=== PATIENT | female | born 1995 | race Caucasian/White ===

== ENCOUNTER → 2021-06-09 09:24 | Outpatient (BNVA) | payer OTHER, MEDICAID, SELFPAY | PROVIDERS: PCP Pediatrics; Referring Provider Pediatrics; Visit Provider Internal Medicine | DX: I95.1 Orthostatic hypotension (principal); R00.0 Tachycardia, unspecified | CPT/HCPCS: 93005 ==

== ENCOUNTER 2023-08-09 09:06 | Outpatient (REF) | payer OTHER, SELFPAY ==
[2023-08-09 10:57] LABS: Erythrocyte Sedimentation Rate 6 MM/HR (0-20)
[2023-08-09 11:19] LABS: Syphilis Screen Nonreactive (Nonreactive)
[2023-08-09 11:20] LABS: HIV AB/AG Nonreactive (Nonreactive); HIV Num 1 0.06 S/CO (0.00-0.99)
[2023-08-09 11:35] LABS: Rheumatoid Factor < 13.0 IU/mL (<15.0)
[2023-08-09 11:38] LABS: Folate 10.8 ng/mL (> or = 4.0); Vitamin B12 525 pg/mL (200-900)
[2023-08-10 13:08] LABS: Complement C3 123 mg/dL (83-193)
[2023-08-11 05:33] LABS: Lyme Abs Screen <0.90 index
[2023-08-11 14:33] LABS: IgA 341 mg/dL (47-310); IgG 1211 mg/dL (600-1640); IgM 151 mg/dL (50-300)
[2023-08-11 20:44] LABS: Anti DNA DS Antibody 3 IU/mL
[2023-08-19 12:59] LABS: Anti Nuclear Antibody Pattern Nuclear, Homogeneous; Anti Nuclear Antibody Screen POSITIVE (NEGATIVE)
== END 2023-08-09 09:07 | disposition home or self-care (01) ==
LOC: HO.LAB 09:06
PROVIDERS: PCP Internal Medicine; Visit Provider Psychiatry & Neurology Neurology
DX: Z11.4 Encounter for screening for human immunodeficiency virus [HIV] (principal); G62.9 Polyneuropathy, unspecified
CPT/HCPCS: 36415; 82607; 82746; 82784; 85652; 86038; 86039; 86160; 86225; 86334; 86431; 86617; 86618; 86780; 87389

== ENCOUNTER 2023-10-28 10:20 | Outpatient (REF) | payer OTHER, SELFPAY ==
--- NOTE | ~2023-10-28 | MR_ITS ---
EXAMINATION: MR BRAIN WITH AND WITHOUT CONTRAST CLINICAL INFORMATION: Right-sided jaw/facial pain, trigeminal neuralgia COMPARISON: None. TECHNIQUE: MRI of the brain was obtained using routine sequences before and following administration of intravenous contrast. A total of 6 mL of Gadavist was administered intravenously. FINDINGS: No abnormal enhancement or mass along the intracranial and extracranial course of the trigeminal nerves. Normal fluid signal intensity of Meckel's caves. No evidence of neurovascular compression along the cisternal segments of the trigeminal nerves. Fat within the periorbital fissures, pterygopalatine fossa, trigeminal fat pad, and mandibular alveolar foramina is preserved. No acute infarct. No extra-axial fluid collection. The ventricles and sulci are normal in size and configuration without significant volume loss or hydrocephalus. No parenchymal signal abnormality. No abnormal intraparenchymal or leptomeningeal enhancement. No significant mass effect or herniation pattern. Normal enhancement of the dural venous sinuses. Normal appearance of the intracranial arterial flow voids. Normal appearance of the midline structures. The orbits are grossly unremarkable. 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 Mild paranasal sinus mucosal thickening. Rightward curvature of the mid nasal septum and leftward curvature of the inferior nasal septal deviation with leftward bony spur impinging on the left inferior nasal turbinate. Normal marrow signal. MR/MR head/brain wo/w con IMPRESSION: No evidence of neurovascular compression of the trigeminal nerve. Normal appearance of the extracranial trigeminal nerve branches. 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 Rightward curvature of the mid nasal septum and leftward curvature of the inferior nasal septal deviation with leftward bony spur impinging on the left inferior nasal turbinate. Rightward curvature of the mid nasal septum and leftward curvature of the inferior nasal septal deviation with leftward bony spur impinging on the left inferior nasal turbinate.
[2023-10-28] MEDS: gadobutroL 7.5 ML VIAL IVPUSH (11:30)
== END 2023-10-28 10:21 | disposition home or self-care (01) ==
LOC: HO.MRI 10:20
PROVIDERS: PCP Internal Medicine; Visit Provider Registered Nurse
DX: G50.0 Trigeminal neuralgia (principal)
CPT/HCPCS: 70553; A9585

== ENCOUNTER → 2024-02-27 13:48 | Outpatient (BNV) | payer OTHER, SELFPAY | PROVIDERS: PCP Internal Medicine; Visit Provider Internal Medicine | DX: E61.1 Iron deficiency (principal) | CPT/HCPCS: 99204; 99213 ==

== ENCOUNTER 2024-08-06 07:25 | Emergency (ER) | payer OTHER, SELFPAY ==
--- NOTE | 2024-08-06 | ECG_ITS ---
Test Reason : syncopy Blood Pressure : / mmHG Vent. Rate : 064 BPM Atrial Rate : 064 BPM P-R Int : 132 ms QRS Dur : 078 ms QT Int : 380 ms P-R-T Axes : 067 074 062 degrees QTc Int : 392 ms Normal sinus rhythm Normal ECG No previous ECGs available Referred By: Generic ED Physician Electronically Signed By:Darnell Orellana
[2024-08-06 07:30] VITALS: BP 104/45; PULSE 81; RESP 16; TEMP 36.6; O2SAT 99; BMI 21.8
[2024-08-06 07:49] LABS: MANUAL DIFF FLAG NO
[2024-08-06 07:50] LABS: Basophils Percent Auto 0.3 % (0-2); Eosinophils Percent Auto 0.2 % (0-4); Hematocrit 37.2 % (37.0-47.0); Hemoglobin 11.8 g/dl (12.0-16.0); Imm Gran Abs Auto 0.04 X10*3/uL (0.00-0.03); Imm Gran Pct Auto 0.3 % (0.0-0.4); Lymphocytes Absolute Auto 1.1 X10*3/uL (1.2-4.9); Lymphocytes Percent Auto 8.8 % (20-40); Mean Corpuscular HGB Conc 31.7 g/dl (31.0-35.0); Mean Corpuscular Hemoglobin 23.6 pg (27.0-33.0); Mean Corpuscular Volume 74.3 fL (80.0-98.0); Mean Platelet Volume 11.4 fL (9.4-12.3); Monocytes Absolute Auto 0.7 X10*3/uL (0.1-1.2); Monocytes Percent Auto 5.7 % (2-11); Neutrophils Absolute Auto 10.9 x10*3/uL (2.0-8.3); Neutrophils Percent Auto 84.7 % (45-73); Platelet Count 202 X10*3/uL (160-400); Red Blood Count 5.01 X10*6/uL (4.20-5.50); Red Cell Distribution Width 15.9 % (11.0-16.0); White Blood Count 12.9 X10*3/uL (4.8-10.8)
[2024-08-06 08:50] LABS: Influenza A PCR NEGATIVE (Negative); Influenza B PCR NEGATIVE (Negative); Resp Syncy Virus RNA Qual PCR NEGATIVE (Negative); SARS COV2 PCR INHOUSE NEGATIVE (Negative)
[2024-08-06 08:50] LABS: Alanine Aminotransferase 16 U/L (0-31); Albumin Level 4.2 g/dL (3.5-5.0); Alkaline Phosphatase 53 U/L (39-117); Anion Gap 12 (12-20); Aspartate Amino Transferase 21 U/L (5-31); Bilirubin Total 0.4 mg/dL (0.0-1.0); Blood Urea Nitrogen 11 mg/dL (9-16); Calcium 9.6 mg/dL (8.4-10.2); Carbon Dioxide 25 mmol/L (22-29); Chloride 108 mmol/L (96-108); Creatinine Clr Calc Pharmacy 100.9; Estimated Glomerular Filt Rate > 60; Glucose Random 93 mg/dL (60-115); Potassium 4.3 mmol/L (3.3-5.1); Sodium 141 mmol/L (135-145); Total Protein 7.3 g/dL (6.5-8.0)
[2024-08-06 10:31] VITALS: BP 90/26; PULSE 59; RESP 11; TEMP 36.9; O2SAT 100
--- NOTE | 2024-08-06 10:54 | ED.GENADULT ---
HPI - General Adult General Chief complaint: Dizziness Stated complaint: dizziness Time Seen by Provider: 08/06/24 10:49 Source: patient Mode of arrival: ambulatory Limitations: no limitations History of Present Illness HPI narrative: This is a 28 years old patient presented to the emergency department with a chief complaint of syncope x2 one was last night one this morning. Patient has history of POTS, she states her kids have been sick she has been feeling weak, the syncope was at home from the standing position she felt coming with dizziness feeling. Onset (ago): hour(s) (10) Radiation: non-radiation Pain Consistency: now resolved Relieving factors: none Exacerbating factors: none Associated symptoms: denies other symptoms Related Data Home Medications ?Medication ?Instructions ?Recorded ?Confirmed gabapentin 100 mg tablet 100 mg PO DAILY 02/27/24 02/27/24 pantoprazole 40 mg tablet,delayed 40 mg PO DAILY 02/27/24 02/27/24 release Allergies Allergy/AdvReac Type Severity Reaction Status Date / Time erythromycin base Allergy Unknown unk Verified 08/06/24 07:34 fludrocortisone Allergy Unknown unk Verified 08/06/24 07:34 iron Allergy Unknown unk Verified 08/06/24 07:34 midodrine Allergy Unknown throat Verified 08/06/24 07:34 itchy tramadol Allergy Unknown swelling Verified 08/06/24 07:34 throatand hives adhesive tape Allergy Rash Verified 08/06/24 07:34 metronidazole AdvReac Unknown hives/rash/ Verified 08/06/24 07:34 SOB Review of Systems Constitutional: Constitutional: Reports no additional constitutional complaints Cardiovascular: Cardiovascular: Reports no additional cardiovascular complaints Endocrine: Endocrine: Reports no additional endocrine complaints PENDING SALE TO [facility] Past Medical History Medical History Migraine Menorrhagia Major depression in full remission Low back pain Irritable bowel syndrome Iron deficiency anemia History of suicide attempt GERD (gastroesophageal reflux disease) Dizziness Asthma Generalized anxiety disorder Abdominal pain Anemia Surgical History History of hernia repair History of ankle surgery History of back surgery History of cholecystectomy History of appendectomy History of section (~04/22/20) Family History Family History Father Lung cancer Mother Diabetes Polythelia Paternal Aunt Lung cancer Breast cancer Social History Social History Household Members: Spouse and Family Patient Tobacco Use Status: Never used Tobacco Smoked in Last 30 Days: No Use of substances other than those prescribed or required for medical reasons: Yes Substance Use Type: Marijuana Advance Directives: No Advance Directives Information Provided: Yes Patient : No service: No Current occupational status: employed Physical Exam ED Vital Signs: Vital Signs - 24 hr 08/06/24 07:30 08/06/24 10:31 08/06/24 12:34 Temperature 97.8 F 98.4 F Pulse Rate 81 59 60 Respiratory Rate 16 11 L 14 Blood Pressure 104/45 L 90/26 L 104/52 L Pulse Oximetry 99 100 100 Oxygen Delivery Method Room Air Room Air Room Air 08/06/24 15:10 Temperature Pulse Rate 65 Respiratory Rate 16 Blood Pressure 115/37 L Pulse Oximetry 100 Oxygen Delivery Method BMI result Body Mass Index 21.8 She is a awake alert in not acute distress, she is not toxic-appearing Const General: cooperative Nutritional Appearance: average body habitus Orientation/consciousness: patient oriented x3 HENMT Head: Yes normal to inspection General nose exam: Normal external nose present Face and sinus: Yes normal facial exam Mouth: Normal oral and palatal mucosa present Neck Neck: Yes normal visual inspection Chest Chest palpation & inspection: normal inspection of the chest Resp Effort & Inspection: normal respiratory effort Auscultation: clear to auscultation bilaterally Cardio Jugular venous distension: no JVD Rate: regular rate Rhythm: regular rhythm GI Inspection: Yes normal to inspection Palpation (GI): Soft to palpation, not firm and nontender General: Yes no CVA tenderness Back/Spine/Pelvis Back: no CVA tenderness Skin General skin exam: no rashes or lesions noted Lesions: no lesions Rashes: no rashes Neuro General: patient oriented x3 Cranial nerves: Yes CN's II-XII intact bilaterally Cognition (Neuro): normal cognition Extrem General: Yes normal to inspection, Yes full ROM and Yes capillary refill normal Right lower extremity: normal to inspection Course Reevaluation(s) Reevaluation #1: reexamined much better labs ok likely vasovagal episode ,she felt dizzness before the syncope,low risk pt labs and EKG OK Time: 12:45 Reevaluation #2: Remain asymtomatic will d/c home Medications Administered Discontinued Medications Generic Name Dose Route Start Last Admin Trade Name [place] PRN Reason Stop Dose Admin Sodium Chloride 1,000 mls @ 999 mls/hr 08/06/24 11:00 08/06/24 12:35 Ns IVCONT 08/06/24 12:00 Infused .Q1H1M SWETA Infusion Sodium Chloride 1,000 mls @ 999 mls/hr 08/06/24 12:45 08/06/24 14:51 Ns IV 08/06/24 13:45 Infused .Q1H1M SWETA Infusion Sodium Chloride 1,000 mls @ 999 mls/hr 08/06/24 12:45 08/06/24 12:38 Ns IVCONT 08/06/24 13:45 Not Given .Q1H1M SWETA Medical Decision Making Medical Decision Making [facility] Narrative: she presented with syncope hx Pots Differential Diagnosis Differential Diagnoses: The differential diagnosis associated with the presentation includes dehydration/vasovagal/cardiac arrythmias Admission/Observation Consideration of admission/observation: Escalation of care including admission/observation considered Lab Data [facility] Lab Attestation statement: I reviewed the patient's lab results. 08/06/24 07:45 08/06/24 08:22 Labs: Lab Results 08/06/24 08/06/24 08/06/24 Range/Units 07:45 08:22 11:10 WBC 12.9 H (4.8-10.8) X10*3/uL RBC 5.01 (4.20-5.50) X10*6/uL Hgb 11.8 L (12.0-16.0) g/dl Hct 37.2 (37.0-47.0) % MCV 74.3 L (80.0-98.0) fL MCH 23.6 L (27.0-33.0) pg MCHC 31.7 (31.0-35.0) g/dl RDW 15.9 (11.0-16.0) % Plt Count 202 (160-400) X10*3/uL MPV 11.4 (9.4-12.3) fL Immature Gran % (Auto) 0.3 (0.0-0.4) % Neut % (Auto) 84.7 H (45-73) % Lymph % (Auto) 8.8 L (20-40) % [place] % (Auto) 5.7 (2-11) % Eos % (Auto) 0.2 (0-4) % Baso % (Auto) 0.3 (0-2) % Lymph # (Auto) 1.1 L (1.2-4.9) X10*3/uL [place] # (Auto) 0.7 (0.1-1.2) X10*3/uL Eos # (Auto) 0.0 (0.0-0.4) X10*3/uL Baso # (Auto) 0.0 (0.0-0.2) X10*3/uL Abs Immat Gran (auto) 0.04 H (0.00-0.03) X10*3/uL Absolute Neuts (auto) 10.9 H (2.0-8.3) x10*3/uL Absolute Nucleated RBC 0.000 (0.0-0.012) X10*3/uL Nucleated RBC % (auto) 0.0 (0.0-0.2) /100WBC Sodium 141 (135-145) mmol/L Potassium 4.3 (3.3-5.1) mmol/L Chloride 108 (96-108) mmol/L Carbon Dioxide 25 (22-29) mmol/L Anion Gap 12 (12-20) BUN 11 (9-16) mg/dL Creatinine 0.77 (0.5-1.4) mg/dL Estim Creat Clear Calc 100.9 Estimated GFR > 60 Random Glucose 93 (60-115) mg/dL Calcium 9.6 (8.4-10.2) mg/dL Total Bilirubin 0.4 (0.0-1.0) mg/dL AST 21 (5-31) U/L ALT 16 (0-31) U/L Alkaline Phosphatase 53 (39-117) U/L Troponin I High Sens < 2.7 (<3.5-17.0) ng/L Total Protein 7.3 (6.5-8.0) g/dL Albumin 4.2 (3.5-5.0) g/dL Beta HCG, Quant < 2 mIU/mL Influenza Type A (PCR) NEGATIVE (Negative) Influenza Type B (PCR) NEGATIVE (Negative) RSV RNA Qual (PCR) NEGATIVE (Negative) SARS-CoV-2 RNA (RT-PCR) NEGATIVE (Negative) Independent Interpretation I performed an independent interpretation of an: EKG (Sinus rhythm rate [address]-T changes, EKG was reviewed interpreted by me) Discharge Plan Discharge Clinical Impression: Vasovagal syncope Patient Disposition: Home, Self-Care Instructions: Syncope (DC) Additional Instructions: Drink lots of fluid rest return to emergency room if you feeling worse any concern Prescriptions: No Action pantoprazole 40 mg tablet,delayed release (DR/EC) 40 mg PO DAILY gabapentin 100 mg Tablet 100 mg PO DAILY Referrals: Savanna Trimble MD [Primary Care Provider] - 2 days Stand Alone Forms: Work/School Release Print Language: Citizen [place]
[2024-08-06] MEDS: 0.9 % Sodium Chloride 1,000 ML 999 ML IVCONT (11:24)
[2024-08-06 11:36] LABS: HCG Quantitative < 2 mIU/mL; Troponin-I High Sensitivity < 2.7 ng/L (<3.5-17.0)
[2024-08-06 12:34] VITALS: BP 104/52; PULSE 60; RESP 14; O2SAT 100
[2024-08-06] MEDS: 0.9 % Sodium Chloride 1,000 ML 999 ML IV (12:38)
[2024-08-06 15:10] VITALS: BP 115/37; PULSE 65; RESP 16; O2SAT 100
[2024-08-06 15:54] VITALS: BP 115/37; PULSE 65; RESP 16; TEMP 36.7; O2SAT 100
== END 2024-08-06 15:54 | disposition home or self-care (01) ==
PROVIDERS: Emergency Provider Emergency Medicine; PCP Internal Medicine
DX: R55 Syncope and collapse (principal); R42 Dizziness and giddiness; R11.0 Nausea; Z03.818 Encounter for observation for suspected exposure to other biological agents ruled out; Z79.899 Other long term (current) drug therapy
CPT/HCPCS: 0241U; 36415; 80053; 84484; 84702; 85025; 93005; 96360; 96361; 99284; 99285

== ENCOUNTER → 2024-08-06 07:40 | Outpatient (BNV) | payer OTHER, SELFPAY | PROVIDERS: Emergency Provider Emergency Medicine; PCP Internal Medicine; Visit Provider Internal Medicine Cardiovascular Disease | DX: R55 Syncope and collapse (principal) | CPT/HCPCS: 93010 ==

== ENCOUNTER 2024-10-03 09:13 | Outpatient (REF) | payer OTHER, SELFPAY ==
[2024-10-03 10:31] LABS: Anion Gap 9 (12-20); Blood Urea Nitrogen 9 mg/dL (9-16); Calcium 9.1 mg/dL (8.4-10.2); Carbon Dioxide 26 mmol/L (22-29); Chloride 109 mmol/L (96-108); Estimated Glomerular Filt Rate > 60; Glucose Random 91 mg/dL (60-115); Potassium 4.2 mmol/L (3.3-5.1); Sodium 140 mmol/L (135-145)
== END 2024-10-03 09:14 | disposition home or self-care (01) ==
LOC: HO.LAB 09:13
PROVIDERS: PCP Internal Medicine; Visit Provider Psychiatry & Neurology Neurology
DX: G90.9 Disorder of the autonomic nervous system, unspecified (principal)
CPT/HCPCS: 36415; 80048

== ENCOUNTER 2024-11-18 08:32 | Emergency (ER) | payer OTHER, SELFPAY ==
--- NOTE | ~2024-11-18 | CT_ITS ---
CLINICAL HISTORY: syncope, head strike, pain CT head without contrast Comparison: MR/SR - MR HEAD/BRAIN WO/W CON - 10/28/23 10:38 EST Findings: No acute intracranial hemorrhage or midline shift. The arrington-white matter differentiation is maintained. No significant atrophy-like change or white matter disease. 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 The remaining paranasal sinuses and mastoid air cells are clear. Punctate calcification or foreign body within the right frontal paramedian scalp. The calvarium is intact. IMPRESSION: No acute intracranial findings. This document has been electronically signed by: Bin Gerber DO on 11/18/2024 11:46:42
--- NOTE | ~2024-11-18 | CT_ITS ---
CLINICAL HISTORY: syncope, head strike, pain CT cervical spine without contrast Comparison: None Findings: No evidence of cervical spine fracture. Vertebral body heights are maintained. The usual cervical lordosis is maintained without spondylolisthesis. No significant degenerative change. The prevertebral soft tissues are not abnormally thickened. The lung apices are clear. IMPRESSION: No acute cervical spine findings. This document has been electronically signed by: Bin Gerber DO on 11/18/2024 11:51:18
--- NOTE | ~2024-11-18 | XR_ITS ---
CLINICAL HISTORY: dizziness Chest radiograph, 1 view Comparison: None Findings: The cardiomediastinal silhouette is not enlarged. Pulmonary vascularity is unremarkable. No focal consolidation or effusion. No pneumothorax. IMPRESSION: No acute cardiopulmonary findings. This document has been electronically signed by: Bin Gerber DO on 11/18/2024 09:04:35
[2024-11-18 08:37] VITALS: BP 93/58; PULSE 55; O2SAT 100
--- NOTE | 2024-11-18 08:38 | ED_ITS ---
HPI - General Adult General Chief complaint: Syncope Stated complaint: SYNCOPAL EPISODE PER EMS Time Seen by Provider: 11/18/24 08:38 Source: patient and EMS Mode of arrival: EMS Limitations: no limitations History of Present Illness ED Provider: Laury Peterson PA-C HPI narrative: Patient is a 28 year old assigned female at with a history of EDS and POTS presenting to the emergency department today after a syncopal episode. Patient states that she had a syncopal episode while at home in the kitchen and has been having issues keeping her blood pressure high. Patient states that she is on sodium tablets and follows with a neurologist as well as a [employer] for this. Patient denies any dizziness, lightheadedness, abdominal pain, nausea, vomiting, fever, chills, blurry vision, double vision, loss of vision, chest pain, difficulty breathing, shortness of breath, back pain, night sweats, pain with urination, increased urinary frequency, increased urinary urgency, blood in her urine or stool, bowel incontinence, bladder incontinence, or any other complaints at this time. Relieving factors: none Exacerbating factors: none Associated symptoms: syncope Treatments prior to arrival: none Related Data Home Medications ?Medication ?Instructions ?Recorded ?Confirmed gabapentin 100 mg tablet 100 mg PO DAILY 02/27/24 02/27/24 pantoprazole 40 mg tablet,delayed 40 mg PO DAILY 02/27/24 02/27/24 release Allergies Allergy/AdvReac Type Severity Reaction Status Date / Time erythromycin base Allergy Unknown unk Verified 11/18/24 08:56 fludrocortisone Allergy Unknown unk Verified 11/18/24 08:56 iron Allergy Unknown unk Verified 11/18/24 08:56 midodrine Allergy Unknown throat Verified 11/18/24 08:56 itchy tramadol Allergy Unknown swelling Verified 11/18/24 08:56 throatand hives adhesive tape Allergy Rash Verified 11/18/24 08:56 metronidazole AdvReac Unknown hives/rash/ Verified 11/18/24 08:56 SOB Review of Systems 2 Constitutional: Constitutional: Reports no additional constitutional complaints, Denies chills, Denies fever(s) and Denies night sweats Eyes: Eyes: Reports no additional eye complaints, Denies blurry vision, Denies change in vision, Denies diplopia, Denies eye discharge, Denies loss of vision and Denies eye pain ENT: Denies dizziness Cardiovascular: Cardiovascular: Reports no additional cardiovascular complaints, Denies chest pain, Reports syncope, Denies lightheadedness, Denies Loss of Consciousness and Denies dyspnea Respiratory: Respiratory: Reports no additional respiratory complaints and Denies dyspnea Gastrointestinal: Gastrointestinal: Reports no additional gastrointestinal complaints, Denies abdominal pain, Denies melena, Denies hematochezia, Denies change in bowel habits and Denies change in stool character Genitourinary: Genitourinary: Denies hematuria, Denies urinary frequency, Denies dysuria, Denies urinary incontinence, Denies urinary hesitancy and Denies urinary urgency Musculoskeletal: Musculoskeletal: Reports no additional musculoskeletal complaints, Denies numbness and Denies tingling Neurologic: Denies dizziness, Reports syncope, Denies loss of vision, Denies numbness and Denies tingling Psychiatric: Psychiatric: Reports no additional psychiatric complaints Endocrine: Endocrine: Reports no additional endocrine complaints Hematologic/Lymphatic: Hematologic/Lymphatic: Reports no additional hematologic/lymphatic complaints Allergic/Immunologic: Allergic/Immunologic: Reports no additional allergic/immunologic complaints [facility], [facility] Past Medical History Attestation statement: The following information was validated with the patient. Source: old records reviewed and nursing notes reviewed Medical History Migraine Menorrhagia Major depression in full remission Low back pain Irritable bowel syndrome Iron deficiency anemia History of suicide attempt GERD (gastroesophageal reflux disease) Dizziness Asthma Generalized anxiety disorder Abdominal pain Anemia Surgical History History of hernia repair History of ankle surgery History of back surgery History of cholecystectomy History of appendectomy History of section (~04/22/20) Family History Family History Father Lung cancer Mother Diabetes Polythelia Paternal Aunt Lung cancer Breast cancer Social History Social History Household Members: Spouse and Family Patient Tobacco Use Status: Never used Tobacco Substance Use Type: Marijuana Advance Directives: No Advance Directives Information Provided: No service: No Current occupational status: employed Physical Exam ED Vital Signs: Vital Signs - 24 hr 11/18/24 14:51 Temperature 98.2 F Pulse Rate 65 Respiratory Rate 16 Blood Pressure 97/55 L Pulse Oximetry 100 Oxygen Delivery Method Room Air BMI result Body Mass Index 25.3 Const General: cooperative, no acute distress, alert and awake Nutritional Appearance: well nourished Orientation/consciousness: patient oriented x3 Limitations: no limitations HENMT Head: Yes normal to inspection and Yes atraumatic Ears: hearing grossly normal bilaterally and external ears normal General nose exam: Normal external nose present, no nasal discharge noted and no epistaxis Face and sinus: Yes normal facial exam, No abrasion and No laceration Mouth: Normal oral and palatal mucosa present, no drooling and no muffled voice Eyes General: appearance normal, both eyes and all related structures Periorbital: periorbital findings normal Eyelids: Yes eyelids normal Conjunctivae: conjunctivae normal Pupils: Equal, round and reactive pupils present EOM: EOMs intact bilaterally Neck Neck: Yes normal visual inspection, Yes full ROM and Yes no lymphadenopathy Chest Chest palpation & inspection: normal inspection of the chest Resp Effort & Inspection: normal respiratory effort and able to speak in complete sentences GI Inspection: Yes normal to inspection Neuro General: patient oriented x3, moves all extremities and CN's II-XI intact bilaterally Cranial nerves: Yes Equal, round and reactive pupils present Cognition (Neuro): normal cognition Extrem General: Yes normal to inspection, Yes full ROM and Yes capillary refill normal Psych Appearance: grossly normal Mental Status: mental status grossly normal Affect: normal affect Attitude: cooperative Thought process: Normal thought process present Thought content: Normal thought content present Insight: Good insight present (Psych) Medications Administered Discontinued Medications Generic Name Dose Route Start Last Admin Trade Name Freq PRN Reason Stop Dose Admin Al Hydroxide/Mg Hydroxide 15 ml 11/18/24 11:54 11/18/24 12:25 Magnesium Hydrox/Alum Hydrox 30 Ml Oral.Susp PO 11/18/24 11:55 15 ml ONCE ONE Administration Sodium Chloride 1,000 mls @ 999 mls/hr 11/18/24 08:45 11/18/24 11:51 Ns IV 11/18/24 09:45 Infused .Q1H1M SWETA Infusion Sodium Chloride 1,000 mls @ 999 mls/hr 11/18/24 12:00 11/18/24 12:27 Ns IV 11/18/24 13:00 999 mls/hr .Q1H1M SWETA Administration Ondansetron HCl 4 mg 11/18/24 11:35 11/18/24 11:40 Ondansetron Hcl 4 Mg/2 Ml Vial IVPUSH 11/18/24 11:36 4 mg ONCE ONE Administration Sodium Chloride 1 gm 11/18/24 11:18 11/18/24 12:51 Sodium Chloride Tab 1 Gm Tablet PO 11/18/24 11:19 1 gm ONCE ONE Administration Medical Decision Making Medical Decision Making [facility] Narrative: Patient is a 28 year old assigned female at with a history of EDS and POTS presenting to the emergency department today after a syncopal episode. Patient's physical exam was unremarkable. Patient's blood work was unremarkable. Patient's EKG was unremarkable. Patient's CT head and c-spine showed no acute process. Patient's clinical presentation is most consistent with acute on chronic orthostatic hypotension. Patient able to tolerate PO while in the department. Patient able to ambulate without dizziness / lightheadedness / near syncope. I explained my physical exam findings as well as all test results to the patient]. I answered all questions asked by the patient. I stressed the importance of the patient taking her medication as directed (either prescribed or as the over the counter packaging recommends). I stressed the importance of the patient following up with her primary care provider, neurologist, and [employer]. I stressed the importance of the patient returning to the emergency department immediately if [his/her/their] symptoms were to worsen or if she were to develop any dizziness, shortness of breath, difficulty breathing, chest pain, blurry vision, loss of vision, nausea, vomiting, abdominal pain, fever, chills, back pain, or any other complaints. Patient verbalized agreement and understanding with this treatment plan and discharge. Differential Diagnosis Differential Diagnoses: The differential diagnosis associated with the presentation includes Syncope Near syncope Orthostatic hypotension Chronic hypotension Admission/Observation Consideration of admission/observation: Escalation of care including admission/observation considered Patient would have been admitted to the hospital had her work up had any findings where hospital admission was appropriate and her clinical presentation warranted hospital admission. Lab Data [facility] Lab Attestation statement: I reviewed the patient's lab results. My interpretation of these results are in the [facility] Rationale portion of this note. 11/18/24 09:13 11/18/24 09:13 Labs: Lab Results 11/18/24 Range/Units 09:13 WBC 9.8 (4.8-10.8) X10*3/uL RBC 4.91 (4.20-5.50) X10*6/uL Hgb 11.3 L (12.0-16.0) g/dl Hct 36.1 L (37.0-47.0) % MCV 73.5 L (80.0-98.0) fL MCH 23.0 L (27.0-33.0) pg MCHC 31.3 (31.0-35.0) g/dl RDW 15.7 (11.0-16.0) % Plt Count 210 (160-400) X10*3/uL MPV 11.0 (9.4-12.3) fL Immature Gran % (Auto) 0.3 (0.0-0.4) % Neut % (Auto) 79.7 H (45-73) % Lymph % (Auto) 12.9 L (20-40) % Cecil % (Auto) 6.5 (2-11) % Eos % (Auto) 0.2 (0-4) % Baso % (Auto) 0.4 (0-2) % Lymph # (Auto) 1.3 (1.2-4.9) X10*3/uL Cecil # (Auto) 0.6 (0.1-1.2) X10*3/uL Eos # (Auto) 0.0 (0.0-0.4) X10*3/uL Baso # (Auto) 0.0 (0.0-0.2) X10*3/uL Abs Immat Gran (auto) 0.03 (0.00-0.03) X10*3/uL Absolute Neuts (auto) 7.8 (2.0-8.3) x10*3/uL Absolute Nucleated RBC 0.000 (0.0-0.012) X10*3/uL Nucleated RBC % (auto) 0.0 (0.0-0.2) /100WBC Sodium 142 (135-145) mmol/L Potassium 4.2 (3.3-5.1) mmol/L Chloride 109 H (96-108) mmol/L Carbon Dioxide 23 (22-29) mmol/L Anion Gap 14 (12-20) BUN 11 (9-16) mg/dL Creatinine 0.79 (0.5-1.4) mg/dL Estim Creat Clear Calc 95.2 Estimated GFR > 60 Random Glucose 92 (60-115) mg/dL Calcium 9.4 (8.4-10.2) mg/dL Magnesium 2.0 (1.6-2.6) mg/dL Total Bilirubin 0.4 (0.0-1.0) mg/dL AST 22 (5-31) U/L ALT 12 (0-31) U/L Alkaline Phosphatase 54 (39-117) U/L Troponin I High Sens < 2.7 (<3.5-17.0) ng/L Total Protein 7.7 (6.5-8.0) g/dL Albumin 4.2 (3.5-5.0) g/dL TSH 0.53 (0.32-4.0) uIU/mL Beta HCG, Quant < 2 mIU/mL Influenza Type A (PCR) NEGATIVE (Negative) Influenza Type B (PCR) NEGATIVE (Negative) RSV RNA Qual (PCR) NEGATIVE (Negative) SARS-CoV-2 RNA (RT-PCR) NEGATIVE (Negative) Independent Interpretation I performed an independent interpretation of an: EKG and CT Scan Interpretation: My interpretation is in agreement with the radiologist's impression of these imaging studies. L Report Number: [id number]: Total DLP = 828.00 mGy-cm CLINICAL HISTORY: syncope, head strike, pain CT cervical spine without contrast Comparison: None Findings: No evidence of cervical spine fracture. Vertebral body heights are maintained. The usual cervical lordosis is maintained without spondylolisthesis. No significant degenerative change. The prevertebral soft tissues are not abnormally thickened. The lung apices are clear. IMPRESSION: No acute cervical spine findings. This document has been electronically signed by: Bin Gerber DO on 11/18/2024 11:51:18 Dictated By: Bin Gerber MD Signed By: Electronically signed by Bin Gerber MD 11/18/24 1151 Report Number: [id number]: Total DLP = 828.00 mGy-cm CLINICAL HISTORY: syncope, head strike, pain CT head without contrast Comparison: MR/SR - MR HEAD/BRAIN WO/W CON - 10/28/23 10:38 EST Findings: No acute intracranial hemorrhage or midline shift. The arrington-white matter differentiation is maintained. No significant atrophy-like change or white matter disease. 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 The remaining paranasal sinuses and mastoid air cells are clear. Punctate calcification or foreign body within the right frontal paramedian scalp. The calvarium is intact. IMPRESSION: No acute intracranial findings. This document has been electronically signed by: Bin Gerber DO on 11/18/2024 11:46:42 Dictated By: Bin Gerber MD Signed By: Electronically signed by Bin Gerber MD 11/18/24 1146 CLINICAL HISTORY: dizziness Chest radiograph, 1 view Comparison: None Findings: The cardiomediastinal silhouette is not enlarged. Pulmonary vascularity is unremarkable. No focal consolidation or effusion. No pneumothorax. IMPRESSION: No acute cardiopulmonary findings. This document has been electronically signed by: Bin Gerber DO on 11/18/2024 09:04:35 Dictated By: Bin Gerber MD Signed By: Electronically signed by Bin Gerber MD 11/18/24 0905 Vent. Rate: 53 BPM Atrial Rate: 53 BPM P-R Int: 142 ms QRS Dur: 80 ms QT Int: 418 ms P-R-T Axes: 60 78 57 degrees QTcB Int: 392 ms Sinus bradycardia When compared with ECG of 06-Aug-2024 07:40, No significant change was found DD/ 0900 Radiology Impression Discussion of test interpretation with radiology: I have reviewed the radiologist's reading. Independent Historian Clinical information obtained from an independent historian. History obtained from or confirmed by: EMS (EMS provided additional history and confirmed the history provided by the patient.) Discharge Plan Discharge Clinical Impression: Orthostatic hypotension Patient Disposition: Home, Self-Care Instructions: Hypotension (ED) Additional Instructions: Your work up today showed no emergent cause for your symptoms. Continue using your sodium tablets and drinking plenty of electrolyte containing fluids. Follow up with your primary care provider and all of your appropriate specialists. Return to the emergency department immediately if your symptoms worsen or if you develop any dizziness, shortness of breath, difficulty breathing, chest pain, blurry vision, loss of vision, nausea, vomiting, abdominal pain, fever, chills, back pain, or any other complaints. Prescriptions: No Action pantoprazole 40 mg tablet,delayed release (DR/EC) 40 mg PO DAILY gabapentin 100 mg Tablet 100 mg PO DAILY Referrals: Savanna Trimble MD [Primary Care Provider] - Stand Alone Forms: Work/School Release Interventions: ED Discharge Assessment Last Done: 11/18/24 14:51 Discharge Date/Time: 11/18/24 14:56 Print Language: Frisian
--- NOTE | 2024-11-18 08:38 | ECG_ITS ---
Test Reason : BRADYCARDIA Blood Pressure : */* mmHG Vent. Rate : 53 BPM Atrial Rate : 53 BPM P-R Int : 142 ms QRS Dur : 80 ms QT Int : 418 ms P-R-T Axes : 60 78 57 degrees QTcB Int : 392 ms Sinus bradycardia Otherwise normal ECG When compared with ECG of 06-Aug-2024 07:40, No significant change was found Referred By: Laury Peterson Electronically Signed By: GREG CERVANTES
[2024-11-18 08:54] VITALS: BP 100/57; PULSE 52; RESP 16; TEMP 36.8; O2SAT 100; BMI 25.3
[2024-11-18 09:18] LABS: MANUAL DIFF FLAG NO
[2024-11-18 09:19] LABS: Basophils Percent Auto 0.4 % (0-2); Eosinophils Percent Auto 0.2 % (0-4); Hematocrit 36.1 % (37.0-47.0); Hemoglobin 11.3 g/dl (12.0-16.0); Imm Gran Abs Auto 0.03 X10*3/uL (0.00-0.03); Imm Gran Pct Auto 0.3 % (0.0-0.4); Lymphocytes Absolute Auto 1.3 X10*3/uL (1.2-4.9); Lymphocytes Percent Auto 12.9 % (20-40); Mean Corpuscular HGB Conc 31.3 g/dl (31.0-35.0); Mean Corpuscular Volume 73.5 fL (80.0-98.0); Monocytes Absolute Auto 0.6 X10*3/uL (0.1-1.2); Monocytes Percent Auto 6.5 % (2-11); Neutrophils Absolute Auto 7.8 x10*3/uL (2.0-8.3); Neutrophils Percent Auto 79.7 % (45-73); Platelet Count 210 X10*3/uL (160-400); Red Blood Count 4.91 X10*6/uL (4.20-5.50); Red Cell Distribution Width 15.7 % (11.0-16.0); White Blood Count 9.8 X10*3/uL (4.8-10.8)
[2024-11-18 09:38] LABS: Alanine Aminotransferase 12 U/L (0-31); Albumin Level 4.2 g/dL (3.5-5.0); Alkaline Phosphatase 54 U/L (39-117); Anion Gap 14 (12-20); Aspartate Amino Transferase 22 U/L (5-31); Bilirubin Total 0.4 mg/dL (0.0-1.0); Blood Urea Nitrogen 11 mg/dL (9-16); Calcium 9.4 mg/dL (8.4-10.2); Carbon Dioxide 23 mmol/L (22-29); Chloride 109 mmol/L (96-108); Creatinine Clr Calc Pharmacy 95.2; Estimated Glomerular Filt Rate > 60; Glucose Random 92 mg/dL (60-115); Potassium 4.2 mmol/L (3.3-5.1); Sodium 142 mmol/L (135-145); Total Protein 7.7 g/dL (6.5-8.0)
[2024-11-18 09:40] LABS: HCG Quantitative < 2 mIU/mL; Troponin-I High Sensitivity < 2.7 ng/L (<3.5-17.0)
[2024-11-18 09:57] LABS: Influenza A PCR NEGATIVE (Negative); Influenza B PCR NEGATIVE (Negative); Resp Syncy Virus RNA Qual PCR NEGATIVE (Negative); SARS COV2 PCR INHOUSE NEGATIVE (Negative)
[2024-11-18] MEDS: 0.9 % Sodium Chloride 1,000 ML 999 ML IV ×2 (10:53→12:27)
[2024-11-18 11:10] LABS: TSH reflex Free T4 0.53 uIU/mL (0.32-4.0)
[2024-11-18] MEDS: ondansetron HCL 4 MG/2 ML VIAL IVPUSH (11:40)
--- NOTE | 2024-11-18 11:44 | PC.NURSE ---
Attempted to PO challenge to be able to give pt her salt tab, pt then got nauseous and started to vomit, IV zofran given at this time.
[2024-11-18] MEDS: Magnesium Hydrox/Alum Hydrox 30 ML ORAL.SUSP 15 ML PO (12:25)
[2024-11-18] MEDS: Sodium Chloride Tab 1 GM TABLET PO (12:51)
[2024-11-18 14:51] VITALS: BP 97/55; PULSE 65; RESP 16; TEMP 36.8; O2SAT 100
== END 2024-11-18 14:56 | disposition home or self-care (01) ==
PROVIDERS: Physician Assistant Medical; Emergency Provider Emergency Medicine; PCP Internal Medicine
DX: I95.1 Orthostatic hypotension (principal); R51.9 Headache, unspecified; R00.1 Bradycardia, unspecified; R11.2 Nausea with vomiting, unspecified; Z79.899 Other long term (current) drug therapy; Z03.818 Encounter for observation for suspected exposure to other biological agents ruled out
CPT/HCPCS: 0241U; 36415; 70450; 71045; 72125; 80053; 83735; 84443; 84484; 84702; 85025; 93005; 96361; 96374; 99285; J2405

== ENCOUNTER → 2024-11-18 08:38 | Outpatient (BNV) | payer OTHER, SELFPAY | PROVIDERS: Emergency Provider Emergency Medicine; PCP Internal Medicine; Visit Provider Internal Medicine | DX: R00.1 Bradycardia, unspecified (principal); R55 Syncope and collapse | CPT/HCPCS: 93010 ==

== ENCOUNTER → 2024-11-18 08:39 | Outpatient (BNV) | payer OTHER, SELFPAY | PROVIDERS: Emergency Provider Emergency Medicine; PCP Internal Medicine; Visit Provider Radiology Diagnostic Radiology | DX: M54.2 Cervicalgia (principal); R51.9 Headache, unspecified; R42 Dizziness and giddiness; I95.9 Hypotension, unspecified; R55 Syncope and collapse | CPT/HCPCS: 70450; 71045; 72125 ==

== ENCOUNTER 2025-03-18 09:34 | Emergency (ER) | payer OTHER, SELFPAY ==
--- NOTE | 2025-03-18 09:37 | ECG_ITS ---
Test Reason : cp Blood Pressure : */* mmHG Vent. Rate : 68 BPM Atrial Rate : 68 BPM P-R Int : 134 ms QRS Dur : 74 ms QT Int : 370 ms P-R-T Axes : 65 78 57 degrees QTcB Int : 393 ms Normal sinus rhythm Normal ECG When compared with ECG of 18-Nov-2024 09:00, No significant change was found Referred By: Generic ED Physician Electronically Signed By: GREG CERVANTES
[2025-03-18 09:43] VITALS: BP 102/56; PULSE 71; RESP 18; TEMP 36.8; O2SAT 98; BMI 24.3
--- NOTE | 2025-03-18 10:20 | ED_ITS ---
HPI - Chest Pain General Chief Complaint: Chest Pain Stated Complaint: Chest Pain Dizziness SOB Since Yesterday Time Seen by Provider: 03/18/25 10:20 History of Present Illness ED Provider: Shawn DURHAM narrative: The patient is a 29-year-old woman who says that she has a history of POTS, Soni-Danlos syndrome, small fiber neuropathy, and gastroparesis. She says that yesterday she was playing with her children, a 4-year-old and a 2-year-old. She says that she got quite hot while playing and then felt a brief stab of chest pain. Since then she has felt nauseated and weak. She slept during the night hoping she would feel better this morning. This morning she continues to feel weak and nauseated and comes to the emergency room. She believes she may be having an exacerbation of her POTS. No fever, sweats, chills. Related Data Home Medications ?Medication ?Instructions ?Recorded ?Confirmed gabapentin 100 mg tablet 100 mg PO DAILY 02/27/2412/17 pantoprazole 40 mg tablet,delayed 40 mg PO DAILY 02/2602/27/24 release Previous Rx's ?Medication ?Instructions ?Recorded ondansetron 4 mg disintegrating 4 mg PO Q6H PRN nausea and 03/18/25 tablet vomiting #10 tabs Allergies Allergy/AdvReac Type Severity Reaction Status Date / Time erythromycin base Allergy Unknown unk Verified 03/18/25 09:45 fludrocortisone Allergy Unknown unk Verified 03/18/25 09:45 iron Allergy Unknown unk Verified 03/18/25 09:45 midodrine Allergy Unknown throat Verified 03/18/25 09:45 itchy tramadol Allergy Unknown swelling Verified 03/18/25 09:45 throatand hives adhesive tape Allergy Rash Verified 03/18/25 09:45 metronidazole AdvReac Unknown hives/rash/ Verified 03/18/25 09:45 SOB Review of Systems 2 Review of Systems: Yes all other systems are reviewed and are negative [facility] Past Medical History Medical History Migraine Menorrhagia Major depression in full remission Low back pain Irritable bowel syndrome Iron deficiency anemia History of suicide attempt GERD (gastroesophageal reflux disease) Dizziness Asthma Generalized anxiety disorder Abdominal pain Anemia Surgical History History of hernia repair History of ankle surgery History of back surgery History of cholecystectomy History of appendectomy History of section (~04/22/20) Family History Family History Father Lung cancer Mother Diabetes Polythelia Paternal Aunt Lung cancer Breast cancer Social History Social History Household Members: Spouse and Family Patient Tobacco Use Status: Never used Tobacco Substance Use Type: Marijuana Advance Directives: No Advance Directives Information Provided: Yes service: No Current occupational status: employed Physical Exam 2 Vital Signs: Vital Signs: Last Vital Signs Temp 99.0 F 03/18/25 12:12 Pulse 64 03/18/25 12:12 Resp 13 03/18/25 12:12 BP 93/56 L 03/18/25 12:12 Pulse Ox 98 03/18/25 12:12 O2 Del Method Room Air 03/18/25 12:12 BMI result Body Mass Index 24.3 Const: General: cooperative, healthy appearing, comfortable, no acute distress, well developed, alert and awake Orientation/consciousness: patient oriented x3 HEENT: Other: The face is symmetrical. ?Mucous membranes moist. Eyes: Other: Pupils are round equal, conjunctivae are clear, extraocular movements intact Neck: Neck: Yes normal visual inspection and Yes full ROM Resp: Effort & Inspection: normal respiratory effort Auscultation: clear to auscultation bilaterally Cardio: Rate: regular rate Rhythm: regular rhythm Heart sounds: S1 normal heart sound present and S2 normal heart sound present GI: Other: Abdomen is soft and nontender Skin: Other: The skin is dry and unremarkable Neuro: General: patient oriented x3, tone normal, moves all extremities, no focal motor deficits and CN's II-XI intact bilaterally Extrem: Other: There is no calf swelling or tenderness. No asymmetry. No peripheral edema. Medications Administered Discontinued Medications Generic Name Dose Route Start Last Admin Trade Name Freq PRN Reason Stop Dose Admin Sodium Chloride 1,000 mls @ 999 mls/hr 03/18/25 10:45 03/18/25 12:21 Ns IV 03/18/25 11:45 Infused .Q1H1M SWETA Infusion Ondansetron HCl 4 mg 03/18/25 10:40 03/18/25 11:16 Ondansetron Hcl 4 Mg/2 Ml Vial IVPUSH 03/18/25 10:41 4 mg ONCE ONE Administration Medical Decision Making Medical Decision Making [facility] Narrative: The patient is here with fairly nonspecific symptoms of fatigue and nausea. She looks well. EKGs unremarkable. Labs are unremarkable. She was given IV ondansetron and IV fluids. I reassured the patient that her workup was unremarkable. She will be discharged to rest at home. She should follow up with her PCP. a prescription for ondansetron was sent to her pharmacy. Lab Data 03/18/25 11:00 03/18/25 11:00 Labs: Lab Results 03/18/25 Range/Units 11:00 WBC 5.2 (4.8-10.8) X10*3/uL RBC 4.44 (4.20-5.50) X10*6/uL Hgb 10.0 L (12.0-16.0) g/dl Hct 32.4 L (37.0-47.0) % MCV 73.0 L (80.0-98.0) fL MCH 22.5 L (27.0-33.0) pg MCHC 30.9 L (31.0-35.0) g/dl RDW 15.8 (11.0-16.0) % Plt Count 211 (160-400) X10*3/uL MPV 11.0 (9.4-12.3) fL Immature Gran % (Auto) 0.4 (0.0-0.4) % Neut % (Auto) 65.4 (45-73) % Lymph % (Auto) 22.6 (20-40) % [place] % (Auto) 10.0 (2-11) % Eos % (Auto) 1.2 (0-4) % Baso % (Auto) 0.4 (0-2) % Lymph # (Auto) 1.2 (1.2-4.9) X10*3/uL [place] # (Auto) 0.5 (0.1-1.2) X10*3/uL Eos # (Auto) 0.1 (0.0-0.4) X10*3/uL Baso # (Auto) 0.0 (0.0-0.2) X10*3/uL Abs Immat Gran (auto) 0.02 (0.00-0.03) X10*3/uL Absolute Neuts (auto) 3.4 (2.0-8.3) x10*3/uL Absolute Nucleated RBC 0.000 (0.0-0.012) X10*3/uL Nucleated RBC % (auto) 0.0 (0.0-0.2) /100WBC Sodium 140 (135-145) mmol/L Potassium 3.9 (3.3-5.1) mmol/L Chloride 109 H (96-108) mmol/L Carbon Dioxide 25 (22-29) mmol/L Anion Gap 10 L (12-20) BUN 10 (9-16) mg/dL Creatinine 0.62 (0.5-1.4) mg/dL Estim Creat Clear Calc 109.7 Estimated GFR > 60 Random Glucose 80 (60-115) mg/dL Calcium 9.0 (8.4-10.2) mg/dL Magnesium 1.9 (1.6-2.6) mg/dL Total Bilirubin 0.2 (0.0-1.0) mg/dL Direct Bilirubin < 0.2 (0.0-0.5) mg/dL AST 22 (5-31) U/L ALT 14 (0-31) U/L Alkaline Phosphatase 57 (39-117) U/L C-Reactive Protein 0.14 (< or = 0.50) mg/dL Total Protein 6.7 (6.5-8.0) g/dL Albumin 4.0 (3.5-5.0) g/dL Beta HCG, Quant < 2 mIU/mL Independent Interpretation I performed an independent interpretation of an: EKG Interpretation: EKG at 12/01/2008 shows normal sinus rhythm at 68 beats per minute. It is a normal EKG. Discharge Plan Discharge Clinical Impression: Chest pain, Nausea and vomiting, Fatigue Patient Disposition: Home, Self-Care Additional Instructions: Your testing in the emergency room today is very reassuring. Please rest and take it easy today. Drink lot of fluids. I have sent a prescription for ondansetron (Zofran) which you may use as needed for any ongoing nausea. Please follow up soon with your regular doctor. Return to the emergency room if significantly worse. Prescriptions: New ondansetron 4 mg tablet,disintegrating 4 mg PO Q6H PRN (Reason: nausea and vomiting) Qty: 10 0RF No Action pantoprazole 40 mg tablet,delayed release (DR/EC) 40 mg PO DAILY gabapentin 100 mg Tablet 100 mg PO DAILY Referrals: Savanna Trimble MD [Primary Care Provider, Medical] Stand Alone Forms: Work/School Release Interventions: ED Discharge Assessment Last Done: 03/18/25 12:12 Discharge Date/Time: 03/18/25 12:21 Print Language: Romanian
[2025-03-18 11:06] LABS: MANUAL DIFF FLAG NO
[2025-03-18 11:07] LABS: Basophils Percent Auto 0.4 % (0-2); Eosinophils Absolute Auto 0.1 X10*3/uL (0.0-0.4); Eosinophils Percent Auto 1.2 % (0-4); Hematocrit 32.4 % (37.0-47.0); Imm Gran Abs Auto 0.02 X10*3/uL (0.00-0.03); Imm Gran Pct Auto 0.4 % (0.0-0.4); Lymphocytes Absolute Auto 1.2 X10*3/uL (1.2-4.9); Lymphocytes Percent Auto 22.6 % (20-40); Mean Corpuscular HGB Conc 30.9 g/dl (31.0-35.0); Mean Corpuscular Hemoglobin 22.5 pg (27.0-33.0); Monocytes Absolute Auto 0.5 X10*3/uL (0.1-1.2); Neutrophils Absolute Auto 3.4 x10*3/uL (2.0-8.3); Neutrophils Percent Auto 65.4 % (45-73); Platelet Count 211 X10*3/uL (160-400); Red Blood Count 4.44 X10*6/uL (4.20-5.50); Red Cell Distribution Width 15.8 % (11.0-16.0); White Blood Count 5.2 X10*3/uL (4.8-10.8)
--- OUTSIDE RECORDS SUMMARY | 2025-03-18 11:07 | XMS_ITS | Clinical Summary ---
Author Organization [facility] Address [address] [place] [address] Care Team Providers Care Pulp Mill Team Leader Name Role Phone Savanna Trimble MD Primary Care Provider [phone]- [phone] Allergies Active Allergy Reactions Criticality Noted Date Comments Azithromycin 06/22/2023 Other reaction(s): rash Erythromycin 06/22/2023 Other reaction(s): rash Ferumoxytol 06/22/2023 Flurandrenolide 06/22/2023 Iron 06/22/2023 Iron Dextran 06/22/2023 Other reaction(s): itching, tingling Iron Sucrose 06/22/2023 Other reaction(s): back pain, low abd pain, tachycardia, Midodrine 06/22/2023 Na Ferric Gluc Cplx In Sucrose 06/22 severe itch and back pain with 1st dose. Nitrous Oxide 06/22/2023 Tramadol 06/22/2023 Medications Medication Sig Dispensed Refills Start Date End Date Status ondansetron (ZOFRAN) 4 MG tablet Take 1 tablet (4 mg total) by mouth every 8 (eight) hours as needed. for n/v 0 05/06/2023 Active Active Problems No known active problems Social History Tobacco Use Types Packs/Day Years Used Date Smoking Tobacco: Former Cigarettes Smokeless Tobacco: Never Tobacco Cessation:Counseling Given: Not Answered Alcohol Use Standard Drinks/Week Comments Never 0 (1 standard drink = 0.6 oz pur e alcohol) Sex and Gender Information Value Date Recorded Sex Assigned at Female 06/02/2023 4:30 PM EDT Gender Identity Not on file Sexual Orientation Not on file Job Start Date Occupation Industry Not on file Not on file Not on file Last Filed Vital Signs Vital Sign Reading Time Taken Comments Blood Pressure 122/74 06/22/2023 1:49 PM EDT Pulse 86 06/22/2023 1:49 PM EDT Temperature 36.9 C (98.5 F) 06/22/2023 1:49 PM EDT Respiratory Rate - - Oxygen Saturation 98% 06/22/2023 1:49 PM EDT Inhaled Oxygen Concentration - - Weight 64.9 kg (143 lb) 06/22/2023 1:49 PM EDT Height - - Body Mass Index - - Plan of Treatment Health Maintenance Due Date Last Done Comments Hepatitis B Vaccines (1 of 3 - 3-dose series) 1994 Hepatitis C Screening 1994 COVID-19 Vaccine (#1) 06/25/1995 Depression Screening 2006 Preventative Health Evaluation 2012 DTap / Tdap / Td (1 - Tdap) 2013 Cervical Cancer Screening (P ap Smear) 12/24/2015 Influenza Vaccine (Season Ended) 2025 08/02/20 09 Pneumococcal Vaccine Aged Out No long er eligible based on patient's age to complete this topic RSV Ped < 20 months Aged Out No longe r eligible based on patient's age to complete this topic Care Teams Pulp Mill Team Leader Relationship Specialty Start Date End Date Savanna Trimble MD [address] [place] [address] PCP - General Internal Medicine 06/02/23
[2025-03-18] MEDS: 0.9 % Sodium Chloride 1,000 ML 999 ML IV (11:16)
[2025-03-18] MEDS: ondansetron HCL 4 MG/2 ML VIAL IVPUSH (11:16)
[2025-03-18 11:25] LABS: Alanine Aminotransferase 14 U/L (0-31); Alkaline Phosphatase 57 U/L (39-117); Anion Gap 10 (12-20); Aspartate Amino Transferase 22 U/L (5-31); Bilirubin Direct < 0.2 mg/dL (0.0-0.5); Bilirubin Total 0.2 mg/dL (0.0-1.0); Blood Urea Nitrogen 10 mg/dL (9-16); C Reactive Protein 0.14 mg/dL (< or = 0.50); Carbon Dioxide 25 mmol/L (22-29); Chloride 109 mmol/L (96-108); Creatinine Clr Calc Pharmacy 109.7; Estimated Glomerular Filt Rate > 60; Glucose Random 80 mg/dL (60-115); Magnesium 1.9 mg/dL (1.6-2.6); Potassium 3.9 mmol/L (3.3-5.1); Sodium 140 mmol/L (135-145); Total Protein 6.7 g/dL (6.5-8.0)
[2025-03-18 11:45] LABS: HCG Quantitative < 2 mIU/mL
[2025-03-18 11:56] VITALS: BP 93/56; PULSE 48; RESP 13; TEMP 37.2; O2SAT 98
[2025-03-18 12:12] VITALS: BP 93/56; PULSE 64; RESP 13; TEMP 37.2; O2SAT 98
== END 2025-03-18 12:21 | disposition home or self-care (01) ==
PROVIDERS: Emergency Provider Emergency Medicine; PCP Internal Medicine
DX: R07.89 Other chest pain (principal); R42 Dizziness and giddiness; R06.02 Shortness of breath; R11.2 Nausea with vomiting, unspecified; R53.83 Other fatigue; Z79.899 Other long term (current) drug therapy
CPT/HCPCS: 36415; 80048; 80076; 83735; 84702; 85025; 86140; 93005; 96361; 96374; 99284; J2405

== ENCOUNTER → 2025-03-18 09:37 | Outpatient (BNV) | payer OTHER, SELFPAY | PROVIDERS: Emergency Provider Emergency Medicine; PCP Internal Medicine; Visit Provider Internal Medicine | DX: R07.9 Chest pain, unspecified (principal) | CPT/HCPCS: 93010 ==

== ENCOUNTER 2025-04-09 09:30 | Outpatient (REF) | payer OTHER, SELFPAY ==
[2025-04-09 09:51] LABS: MANUAL DIFF FLAG NO
[2025-04-09 09:56] LABS: Hematocrit 34.0 % (37.0-47.0); Hemoglobin 10.7 g/dl (12.0-16.0); Imm Gran Abs Auto 0.02 X10*3/uL (0.00-0.03); Imm Gran Pct Auto 0.3 % (0.0-0.4); Lymphocytes Absolute Auto 1.6 X10*3/uL (1.2-4.9); Mean Corpuscular HGB Conc 31.5 g/dl (31.0-35.0); Mean Corpuscular Hemoglobin 22.5 pg (27.0-33.0); Mean Corpuscular Volume 71.6 fL (80.0-98.0); NRBC Abs Auto 0.000 X10*3/uL (0.0-0.012); NRBC Pct Auto 0.0 /100WBC (0.0-0.2); Platelet Count 222 X10*3/uL (160-400); Red Blood Count 4.75 X10*6/uL (4.20-5.50); White Blood Count 8.0 X10*3/uL (4.8-10.8)
--- OUTSIDE RECORDS SUMMARY | 2025-04-09 10:03 | XMS_ITS | Clinical Summary ---
[facility] Organization [facility] Address [address] [place] [address] Care Team Providers Care Weight Calculator Name Role Phone Savanna Trimble MD Primary Care Provider +1- [phone] Allergies Active Allergy Reactions Criticality Noted Date [...] Screening (P ap Smear) 12/24/2015 Influenza Vaccine (#1) 2025 08/02/2009 Pneumococcal Vaccine Aged Out No long er eligible based on patient's age to complete this topic RSV Ped < 20 months Aged Out No longe r eligible based on patient's age to complete this topic Care Teams Weight Calculator Relationship Specialty Start Date End Date Savanna Trimble MD [address] [place] [address] PCP - General Internal Medicine 06/02/23
--- OUTSIDE RECORDS SUMMARY | 2025-04-09 10:03 | XMS_ITS | Clinical Summary ---
Author Organization [facility] Address [address] [place] [address] Phone Care Team Providers Care Dispensing Lead Name Role Phone Savanna Trimble MD Primary Care Provider Encounters Date Type Department Care Team Description 01/17/2025 11:00 AM EDT - 01/17/2025 11:59 PM EDT Hospital Encounter [facility] [address] [place] [phone] Syncope and collapse (Primary Dx) Discharge Disposition: Home or Self Care 01/16/2025 11:00 AM EDT - 01/16/2025 11:59 PM EDT Hospital Encounter [facility] [address] [place] [phone] Syncope and collapse (Primary Dx) Discharge Disposition: Home or Self Care 01/15/2025 9:19 AM EDT - 01/15/2025 11:59 PM EDT Hospital Encounter [facility] [address] [place] [phone] Discharge Disposition: Home or Self Care from Last 3 Months Social History Tobacco Use Types Packs/Day Years Used Date Smoking Tobacco: Former Smokeless Tobacco: Never Alcohol Use Standard Drinks/Week Comments Never 0 (1 standard drink = 0.6 oz pur e alcohol) Comments Unknown Sex and Gender Information Value Date Recorded Sex Assigned at Not on file Legal Sex Female 2:30 PM EST Gender Identity Not on file Sexual Orientation Not on file Obstetrics History Last Filed Vital Signs Vital Sign Reading Time Taken Comments Blood Pressure 122/74 06/22/2023 1:49 PM EDT Sitting Right arm Pulse 86 06/22/2023 1:49 PM EDT Temperature - - Respiratory Rate - - Oxygen Saturation - - Inhaled Oxygen Concentration - - Weight 64.9 kg (143 lb) 06/22/2023 1:49 PM EDT Height - - Body Mass Index - - Plan of Treatment Health Maintenance Due Date Last Done Comments Hepatitis B Vaccines (1 of 3 - 19+ 3-dose series) 2013 Pneumococcal Vaccine: Pediat rics (0 to 5 Years) and At-Risk Patients (6 to 49 Years) (1 of 2 - PCV) 2013 Cervical Cancer Screening: P ap Smear 12/24/2015 Depression Screening 11/13/2022 HIV Screening 11/13/2022 Hepatitis C Screening 11/13/2022 Social Influencers of Health Screening 11/13/2022 COVID-19 Vaccine (2023-2 5 season) 2024 Influenza Vaccine (#1) 2025 08/02/2009 DTaP,Tdap,and Td Vaccines (2 - Td or Tdap) 07/04/2032 07/04/2022 HIB Vaccines Aged Out No longer eligi ble based on patient's age to complete this topic HPV Vaccines Aged Out No longer eligi ble based on patient's age to complete this topic Hepatitis A Vaccines Aged Out No long er eligible based on patient's age to complete this topic IPV Vaccines Aged Out No longer eligi ble based on patient's age to complete this topic MMR Vaccines Aged Out No longer eligi ble based on patient's age to complete this topic Meningococcal ACWY Vaccine Aged Out N o longer eligible based on patient's age to complete this topic Meningococcal B Vaccine Aged Out No l onger eligible based on patient's age to complete this topic RSV Immunization Patients Un abbie 20 months Aged Out No longer eligible b ased on patient's age to complete this topic Varicella Vaccines Aged Out No longer eligible based on patient's age to complete this topic Procedures Procedure Name Priority Date/Time Associated Diagnosis Comments CONTINUOUS EEG Routine 01/15/2025 1:30 PM EDT Syncope and collapse from Last 3 Months Results * Continuous EEG (01/15/2025 1:30 PM EDT) Narrative Sadie Benton MD - 01/28/2025 9:44 AM EDT This is a 48-hour ambulatory EEG. Patient did not keep any diary of symptoms. HDF EEG was separately reviewed and included wakefulness and sleep. During wakefulness symmetric alpha posteriorly lower amplitude faster anteriorly was noted. Patient transition into different stages of sleep including N1 2 and 3. Frequent arousals were noted during sleep. EKG revealed supraventricular tachycardia. During both days some abnormalities were noted. There were couple of generalized sharp and slow wave complexes lasting for a second. Bilateral occipital area theta range slowing episodes were noted, which at times revealed polyspike and wave discharges. Some late and muscle artifacts were noted. Impression: #1 abnormal EEG with generalized epileptic discharges. #2 supraventricular tachycardia us Sadie Benton MD NEUROLOGY ORDERABLES Final Result from Last 3 Months Insurance [facility] MEDICAID ADVANTAGE Care Teams Dispensing Lead Relationship Specialty Start Date End Date Savanna Trimble MD [address] [place] [phone] PCP - General 06/02/23
--- OUTSIDE RECORDS SUMMARY | 2025-04-09 10:04 | XMS_ITS | Data Portability ---
Author Organization [facility], [address] Address [address] [place] [address] Assessment No assessment recorded. Plan of Treatment Reminders Order Date Submit Date Provider Last Modified By Organization Details Last Modified Time Details Appointments None recorded. Lab urinalysis , dipstick 2023 024 [facility], [address] [place], [address], 4 08:40:33 test, urine 2023 024 [facility], [address] [place], [address], 4 08:40:34 culture, urine 2023 024 [place] [facility], [address] [place] [address], [place], [address], 4 10:06:29 Referral None recorded. Procedures None recorded. Surgeries None recorded. Imaging None recorded. Medication Orders Bactrim DS 800 mg-160 mg tablet 2023 024 [facility] #[id number], [address] [place], [address], 4 08:40:34 Diflucan 150 mg tablet 2023 024 [facility] #[id number], [address] [place], [address], 08:40:33 Patient TargetsNo targets recorded. Patient InstructionsNo instructions recorded. Reason for Referral None Reported. Results Created Date Observation Date Name Description Value Unit Range Abnormal Flag Note LastModifiedBy Organization Detail LastModifiedTime 03/19/20 24 03/21/2024 URINE CULTU RE, ROUTI NE urine culture, routine FINAL REPORT Not Available [facility] ([facility]) [address] [facility], [place], [address], 03/21/2024 10:06:29 03/19/20 24 03/21/2024 URINE CULTU RE, ROUTI NE result 1 NO GROWTH Not Available [facility] ([facility]) [address] [facility], [place], [address], 03/21/2024 10:06:29 03/19/20 24 03/19/2024 urina lysis , dipst ick Unknown Analyte Yellow Not Available [address], [address], 03/19/2024 08:27:32 03/19/20 24 03/19/2024 urina lysis , dipst ick Unknown Analyte Clear Not Available [address], [address], 03/19/2024 08:27:32 03/19/20 24 03/19/2024 urina lysis , dipst ick Unknown Analyte Negati ve Not Available [address], [address], 03/19/2024 08:27:32 03/19/20 24 03/19/2024 urina lysis , dipst ick Unknown Analyte Negati ve Not Available [address], [address], 03/19/2024 08:27:32 03/19/20 24 03/19/2024 urina lysis , dipst ick Unknown Analyte Negati ve Not Available [facility] [address] [place] [address], [address], 03/19/2024 08:27:32 03/19/2003/19/2024 urina lysis , dipst ick Unknown Analyte 1.010 Not Available [address], [address], 03/19/2024 08:27:32 03/19/20 24 03/19/2024 urina lysis , dipst ick Unknown Analyte Negati ve Not Available [facility] [address] [place] [address], [phone], 03/19/2024 08:27:32 03/19/2003/19/2024 urina lysis , dipst ick Unknown Analyte 7.5 Not Available [address], [address], 03/19/2024 08:27:32 03/19/20 24 03/19/2024 urina lysis , dipst ick Unknown Analyte Negati ve Not Available [facility] [address] [place] [address], [phone], 03/19/2024 08:27:32 03/19/2003/19/2024 urina lysis , dipst ick Unknown Analyte 0.2 E.U./d L Not Available [facility] [address] [place] [address], [address], 03/19/2024 08:27:32 03/19/2003/19/2024 urina lysis , dipst ick Unknown Analyte Negati ve Not Available [facility] [address] [place] [address], [phone], 03/19/2024 08:27:32 03/19/20 24 03/19/2024 urina lysis , dipst ick Unknown Analyte Negati ve Not Available [facility] [address] [place], [address], 03/19/2024 08:27:32 03/19/20 24 03/19/2024 pregn jordi test, urine Unknown Analyte negati ve Not Available [facility] [address] [place], [address], 03/19/2024 08:27:37 03/19/20 24 03/19/2024 pregn jordi test, urine Unknown Analyte Yes Not Available [facility] [address] [place], [address], 03/19/2024 08:27:37 Result Notes None recorded. Problems Name Problem SNOMED Code Status Onset Date Resolution Date Notes Provider Name and Address Organization Details Recorded Time Trigeminal neuralgia 73839213 Active Berta taylor, PA - [facility] 08:23:35 Gastroesophage al reflux disease 381167966 Active Berta taylor, PA - [facility] 08:23:41 Acute urinary tract infection 807149668 Active 2023 Sang Love, [address] [place] , [facility] [place], [address] [facility] PA - [facility] 08:39:15 Problem Notes None recorded. Procedures Surgical History Date Name Laterality Status Provider Name and Address Organization Details Recorded Time section completed Berta Christine PA - [facility] 03/19/2024 08:25:17 Imaging Results None recorded. Procedure Notes None recorded. Medical Equipment None Reported. Allergies Allergen ID Allergen Name Allergen Category Reaction Reaction Severity Criticality Documentation Date Start Date Code Code System Note Provider Name and Address Organization Details Recorded Time 756702 iron medicatio n Not available Not available Not available 03/19/2024 23265 RxNorm Lots of iron Berta taylor, PA - [facility] 08:21:40 886585 azithromy олег medicatio n hives Not available Not available 03/19/2024 73836 RxNorm Berta taylor PA - [facility] 4 08:21:30 469514 adhesive tape environme nt,medica tion Not available Not available Not available 03/19/2024 44566 UNK pt CAN USE PAPER TAPE ONLY Berta taylor PA - [facility] 4 08:22:16 Medications Name Sig Start Date Stop Date Status Note LastModified by Organization Details LastModified Time amoxicillin 500 mg capsule TAKE 1 CAPSULE BY MOUTH THREE TIMES A DAY UNTIL FINISHED 03/19 completed Not Available Not Available Not Available ondansetron HCl 4 mg tablet TAKE 1 TABLET BY MOUTH EVERY 8 HOURS NEEDED FOR NAUSEA AND VOMITING active Not Available Not Available No t Available Diflucan 150 mg tablet Take 1 tablet every day by oral route for 3 days. 2023 active Not Available Not Available Not Avai lable Tegretol XR 100 mg tablet,exte nded release TAKE 1 TABLET BY MOUTH TWICE A DAY FOR 14 DAYS 03/19 completed Not Available Not Available Not Available butalbital- acetaminoph en-caffeine 50 mg-325 mg-40 mg tablet TAKE 1 TO 2 TABLETS BY MOUTH DAILY NEEDED X30 DAYS active Not Available Not Available No t Available carbamazepi ne 200 mg tablet TAKE 1/2 TABLET BY MOUTH TWICE A DAY 03/19 completed Not Available Not Available Not Available pantoprazol e 40 mg tablet,kan yed release TAKE 1 TABLET BY MOUTH EVERY DAY active Not Available Not Available No t Available gabapentin 100 mg capsule TAKE 1 CAPSULE BY MOUTH TWICE A DAY FOR 30 DAYS active Not Available Not Available No t Available ondansetron 4 mg disintegrat ing tablet TAKE 1 TABLET BY MOUTH EVERY 6 HOURS NEEDED FOR NAUSEA AND VOMITING active Not Available Not Available No t Available Bactrim DS 800 mg-160 mg tablet Take 1 tablet every 12 hours by oral route for 5 days. 2023 active Not Available Not Available Not Avai lable Readi-Cat 2 2.1 % (w/v), 2.0 % (w/w) oral suspension PLEASE SEE ATTACHED FOR DETAILED DIRECTION S 03/19 completed Not Available Not Available Not Available Readi-Cat 2 2 % (w/v) oral suspension TAKE DIRECTED 03/19 completed Not Available Not Available Not Available Vitals Date Recorded Body height Body mass index (BMI) Body weight Body temperature Respiratory rate Oxygen saturation Oxygen saturation in Arterial blood by Pulse oximetry Heart rate Systolic And Diastolic Provider Name and Address Organization Details Last Updated DateTime 157.48 cm 24.7 kg/m2 56072.9 7 g 97.2 [degF] 17 /min 98 % 98 % 78 /min 97/63 mm[Hg] Berta PERKINS - [facility] 08:26:51 Social History Question Answer Notes LastModified by [employer] Details LastModified Time Tobacco Smoking Status Former Smoker Berta taylor PA - [facility] 03/19/2024 08:24:49 Which Illicit Or Recreational Drugs Have You Used? Marijuana [email or web address] Information not available 03/19/2024 When Did You Quit Smoking? 6-10yearssince lastcigarette [email or web address] Information not available 03/19/2024 Have You Had A Flu Shot This Season? No [email or web address] Information not available 03/19/2024 If No, Would You Like A Flu Shot Today? No Information not available 03/19/2024 Have You Had Direct Contact, Or Contact During Intimacy, With Monkeypox Rash, Scabs, Or Body Fluids From A Person With Monkeypox? No [email or web address] Information not available 03/19/2024 What Is Your Relationship Status? Information not available 03/19/2024 Have You Recently Traveled Abroad? No [email or web address] Information not available 03/19/2024 Are You Currently In School? No [email or web address] Information not available 03/19/2024 Sex: Unknown Functional Status Question Answer Note LastModified by [employer] Details LastModified Time Do you use any illicit or recreational drugs? Yes [email or web address] Information not available 03/19/2024 Do you or have you ever used any other forms of tobacco or nicotine? No [email or web address] Information not available 03/19/2024 What is your level of alcohol consumption? None [email or web address] Information not available 03/19/2024 Are you currently employed? Yes [email or web address] Information not available 03/19/2024 Mental Status None recorded. Family History Relationship Description Onset Age of this Age Resolved Age Notes LastModified by Organization Details LastModified Time Father No current problems or disability [email or web address] Not available 03/19 08:23:44 Mother Diabetes mellitus [email or web address] Not available 2023 08:23:58 Medical History No medical history recorded. Gynecological History Statement/Question Response Date of LMP 03/05/2024 Is there any chance of ? No LMP Approximate Obstetrics History GPAL:G 0 P 0 0 0 0 Immunizations Vaccine Type Date Status Note Provider Geoffrey andino and Address Organization Details Recorded Time Tdap 07/04/2022 completed MADDIE Johnson - [facility] 03/19/2024 08:20:52 Past Encounters Encounter ID Performer Location Encounter Start Date Encounter Closed Date Diagnosis/Indication Diagnosis SNOMED-CT Code Diagnosis ICD10 Code Diagnosis Note [id number] [facility] [address] [place] [phone] 08/20/2019 10:11:42 08/20/2019 11:34:21 [id number] [facility] [place] [phone] 01/07/2017 11:40:11 01/07/2017 12:30:56 [id number] Sang Love [place] [address] [place] [phone] 03/19/2024 08:10:54 03/19/2024 08:41:37 Acute urinary tract infection 781729061 N39.0 See pcp in 3-4 days. Go to ER if anything worsens. Otc tylenol as needed for pain. Symptomati c treatment. All of patients questions have been answered. Patient has understand ing and agreement of all of this. Health Concerns Section Related Observation LastModified by Organization Detai ls LastModified Time None Recorded Concern Status LastModified by Organization Details LastModified Time None Recorded Advance Directives Directive None Recorded Payers Insurance Date Sequence Insurance Name Policy Number Policy Rodriguez Covered Member ID Rodriguez Member ID Guarantor Name 03/19/2024 1 [facility] (MEDICAID REPLACEMENT - HMO) [id number] Delia M Blood [id number] Delia Blood 03/19/2024 1 [facility] [id number] Susan Bolaños [id number] Delia Blood 03/19/2024 1 [place]: [facility] Delia Bolaños [id number] Delia Blood Notes Date Note Type Note Provider Name and Address Organization Details Recorded Time 03/19/2024 text/html pt was on period aprox 2-2.5 weeks ago and was using a different brand of tampons. pt reports after using this brand, pt reports intermittent itchyness, now pt is experiencing dysuria, and frequency. no hematuria, Low back pain. slight lower abdominal pain, burning when urinating . pt denies fever. no nausea last uti was years ago, just like this Sang Love, DO [address] [place], [address], PA - [facility] 03/19/2024 08:47:29 OBGyn Episode No OBEpisode recorded.
[2025-04-09 10:28] LABS: Ferritin 5 ng/mL (10-122)
== END 2025-04-09 09:31 | disposition home or self-care (01) ==
LOC: HO.LAB 09:30
PROVIDERS: Visit Provider Internal Medicine
DX: E61.1 Iron deficiency (principal)
CPT/HCPCS: 36415; 82728; 85025; 86850; 86900; 86901

== ENCOUNTER 2025-04-11 10:03 | Emergency (ER) | payer OTHER, SELFPAY ==
--- NOTE | 2025-04-11 | ECG_ITS ---
Test Reason : SYNCOPE Blood Pressure : */* mmHG Vent. Rate : 60 BPM Atrial Rate : 60 BPM P-R Int : 142 ms QRS Dur : 76 ms QT Int : 400 ms P-R-T Axes : 69 74 53 degrees QTcB Int : 400 ms Normal sinus rhythm Normal ECG When compared with ECG of 18-Mar-2025 09:38, No significant change was found Referred By: Generic ED Physician Electronically Signed By: GERG CERVANTES
[2025-04-11 10:04] VITALS: BP 98/54; PULSE 61; RESP 16; TEMP 36.8; O2SAT 99; BMI 25.0
[2025-04-11 10:25] LABS: MANUAL DIFF FLAG NO
[2025-04-11 10:27] LABS: Hematocrit 32.9 % (37.0-47.0); Hemoglobin 10.3 g/dl (12.0-16.0); Imm Gran Abs Auto 0.02 X10*3/uL (0.00-0.03); Imm Gran Pct Auto 0.3 % (0.0-0.4); Lymphocytes Absolute Auto 1.8 X10*3/uL (1.2-4.9); Mean Corpuscular HGB Conc 31.3 g/dl (31.0-35.0); Mean Corpuscular Hemoglobin 22.6 pg (27.0-33.0); Mean Corpuscular Volume 72.1 fL (80.0-98.0); NRBC Abs Auto 0.000 X10*3/uL (0.0-0.012); NRBC Pct Auto 0.0 /100WBC (0.0-0.2); Platelet Count 222 X10*3/uL (160-400); Red Blood Count 4.56 X10*6/uL (4.20-5.50); White Blood Count 6.7 X10*3/uL (4.8-10.8)
[2025-04-11 10:36] LABS: UPreg QC Valid YES
--- NOTE | 2025-04-11 10:45 | ED_ITS ---
HPI - Syncope General Chief Complaint: Syncope Stated Complaint: dizzy states passed out this am Time Seen by Provider: 04/11/25 10:28 Source: patient and old records reviewed Mode of arrival: ambulatory Limitations: no limitations History of Present Illness ED Provider: ARTHUR DURHAM narrative: 29 yo female with PMH of POTs, anemia, orthostatic hypotension here with c/o episode again of feeling funny while working, dizzy, she feels this sense of draining in back of neck when these episodes occur. This has been longstanding. She has told her neurologist about it. She has been here recently this month for same. No change in how she manages her POTS. She denies infectious or GIB symptoms. She has asked if she can get infusions for this when she is very symptomatic but no orders have been placed by her providers. No CP. She is not on OCPs. She was in a chair when it happened no trauma. MD complaint: loss of consciousness Onset (ago): minute(s) (PATROL CAPTAIN) -: second(s) Prodromal symptoms: lightheaded and other Related Data Home Medications ?Medication ?Instructions ?Recorded ?Confirmed gabapentin 100 mg tablet 100 mg PO DAILY 02/27/2412/17 pantoprazole 40 mg tablet,delayed 40 mg PO DAILY 02/2602/27/24 release Previous Rx's ?Medication ?Instructions ?Recorded ondansetron 4 mg disintegrating 4 mg PO Q6H PRN nausea and 03/18/25 tablet vomiting #10 tabs Allergies Allergy/AdvReac Type Severity Reaction Status Date / Time erythromycin base Allergy Unknown unk Verified 04/11/25 10:08 fludrocortisone Allergy Unknown unk Verified 04/11/25 10:08 iron Allergy Unknown unk Verified 04/11/25 10:08 midodrine Allergy Unknown throat Verified 04/11/25 10:08 itchy tramadol Allergy Unknown swelling Verified 04/11/25 10:08 throatand hives adhesive tape Allergy Rash Verified 04/11/25 10:08 metronidazole AdvReac Unknown hives/rash/ Verified 04/11/25 10:08 SOB Review of Systems 2 Review of Systems: Constitutional : No Fever, No Chills, No Fatigue ENT/Mouth : No sore throat, No Rhinorrhea Eyes: No Eye Pain, No Swelling, No Redness Cardiovascular : No Chest Pain, No SOB, No Dyspnea on Exertion Respiratory : No Cough, No Sputum Gastrointestinal : No Nausea, No Vomiting, No Diarrhea, No abdominal Pain Genitourinary : No Dysuria, No Urinary Frequency, No Hematuria, Musculoskeletal : No joint pain, No Myalgias, No Joint Swelling Skin : No Skin Lesions, No rash Neuro : No Weakness, No Numbness, pos Dizziness, no Headache, pos syncope All other systems reviewed and are negative [facility] Past Medical History Attestation statement: The following information was validated with the patient. Source: old records reviewed Medical History (Updated 04/11/25 @ 12:03 by Felipa Castañeda DO) Orthostatic hypotension Migraine Menorrhagia Major depression in full remission Low back pain Irritable bowel syndrome Iron deficiency anemia History of suicide attempt GERD (gastroesophageal reflux disease) Dizziness Asthma Generalized anxiety disorder Abdominal pain Anemia Surgical History History of hernia repair History of ankle surgery History of back surgery History of cholecystectomy History of appendectomy History of section (~04/22/20) Family History Family History Father Lung cancer Mother Diabetes Polythelia Paternal Aunt Lung cancer Breast cancer Social History Social History Household Members: Spouse and Family Patient Tobacco Use Status: Never used Tobacco Smoked in Last 30 Days: No Use of substances other than those prescribed or required for medical reasons: No Substance Use Type: Marijuana Advance Directives: No Advance Directives Information Provided: Yes Patient : No service: No Current occupational status: employed Physical Exam 2 Vital Signs: Vital Signs: Last Vital Signs Temp 98.0 F 04/11/25 13:21 Pulse 60 04/11/25 13:21 Resp 19 04/11/25 13:21 BP 115/55 L 04/11/25 13:21 Pulse Ox 100 04/11/25 13:21 O2 Del Method Room Air 04/11/25 13:21 BMI result Body Mass Index 25.0 Appearance: Alert. Oriented X3. No acute distress. Eyes: Pupils equal, round and reactive to light. ENT: Pharynx normal. Neck: Normal inspection. Neck supple. CVS: Normal heart rate and rhythm. Pulses normal. Respiratory: No respiratory distress. Breath sounds normal. Abdomen: Soft and nontender. Skin: Skin warm and dry. pale skin color. Normal skin turgor. Extremities: No lower extremity edema. No calf ttp Neuro: Oriented X 3. No motor deficit. No sensory deficit. CN2-12 intact Medications Administered Discontinued Medications Generic Name Dose Route Start Last Admin Trade Name Rio PRN Reason Stop Dose Admin Lactated Ringer's 1,000 mls @ 999 mls/hr 04/11/25 10:28 04/11/25 13:17 Lr IV 04/11/25 11:28 Infused .Q1H1M ONE Infusion Lactated Ringer's 1,000 mls @ 999 mls/hr 04/11/25 10:28 04/11/25 13:17 Lr IV 04/11/25 11:28 Infused .Q1H1M ONE Infusion Medical Decision Making Medical Decision Making [facility] Narrative: 29 yo female with PMH of POTs, anemia, orthostatic hypotension here with c/o syncopal episode she has had 2 in one month she is taking her Na tabs she notes she usually responds to fluids, no GIB, no infectious symptoms, no signs of DVT/PE and not on OCPs at this time will hydrate 2L and try to schedule her outpatient therapy. Differential Diagnosis Differential Diagnoses: The differential diagnosis associated with the presentation includes orthostatic hypotension, anemia Admission/Observation Consideration of admission/observation: Escalation of care including admission/observation considered better after IVF confirmed with case management insurance will authorize IVF ordered at infusion center set up 6 weeks of IVF feels better after fluids declines another 3rd liter Lab Data [facility] Lab Attestation statement: I reviewed the patient's lab results. 04/11/25 10:17 04/11/25 10:17 Labs: Lab Results 04/11/25 Range/Units 10:17 WBC 6.7 (4.8-10.8) X10*3/uL RBC 4.56 (4.20-5.50) X10*6/uL Hgb 10.3 L (12.0-16.0) g/dl Hct 32.9 L (37.0-47.0) % MCV 72.1 L (80.0-98.0) fL MCH 22.6 L (27.0-33.0) pg MCHC 31.3 (31.0-35.0) g/dl RDW 16.4 H (11.0-16.0) % Plt Count 222 (160-400) X10*3/uL MPV 11.2 (9.4-12.3) fL Immature Gran % (Auto) 0.3 (0.0-0.4) % Neut % (Auto) 63.6 (45-73) % Lymph % (Auto) 27.5 (20-40) % Greer % (Auto) 6.6 (2-11) % Eos % (Auto) 1.4 (0-4) % Baso % (Auto) 0.6 (0-2) % Lymph # (Auto) 1.8 (1.2-4.9) X10*3/uL Greer # (Auto) 0.4 (0.1-1.2) X10*3/uL Eos # (Auto) 0.1 (0.0-0.4) X10*3/uL Baso # (Auto) 0.0 (0.0-0.2) X10*3/uL Abs Immat Gran (auto) 0.02 (0.00-0.03) X10*3/uL Absolute Neuts (auto) 4.2 (2.0-8.3) x10*3/uL Absolute Nucleated RBC 0.000 (0.0-0.012) X10*3/uL Nucleated RBC % (auto) 0.0 (0.0-0.2) /100WBC Sodium 142 (135-145) mmol/L Potassium 4.3 (3.3-5.1) mmol/L Chloride 109 H (96-108) mmol/L Carbon Dioxide 27 (22-29) mmol/L Anion Gap 10 L (12-20) BUN 10 (9-16) mg/dL Creatinine 0.70 (0.5-1.4) mg/dL Estim Creat Clear Calc 101.8 Estimated GFR > 60 Random Glucose 92 (60-115) mg/dL Calcium 9.0 (8.4-10.2) mg/dL Total Bilirubin 0.3 (0.0-1.0) mg/dL AST 24 (5-31) U/L ALT 17 (0-31) U/L Alkaline Phosphatase 53 (39-117) U/L Total Protein 7.0 (6.5-8.0) g/dL Albumin 4.4 (3.5-5.0) g/dL Urine Test NEGATIVE (NEGATIVE) Independent Interpretation I performed an independent interpretation of an: EKG Interpretation: Rate: 60 Rhythm: NSR [place]: normal Normal P waves. Normal ARACELI. Normal QRS complex. ST T wave : normal no NIMO, inverted t wave V1 qTC: 400 prior studies:no acute ischemia The study has been interpreted contemporaneously by me. . External Record Review External record reviewed: Outpatient record Prescription Management I considered prescription management with: Other (outpatient IVF infusions) Discharge Plan Discharge Clinical Impression: Orthostatic hypotension Patient Disposition: Home, Self-Care Instructions: Hypotension (ED) Additional Instructions: labs reassuring, hemoglobin 10.3, negative test EKG reassuring the infusion center will be calling you to set up weekly infusions - their number is [phone] please call if you have heard from them by Tuesday afternoon return for any worsening symptoms or concerns Prescriptions: No Action pantoprazole 40 mg tablet,delayed release (DR/EC) 40 mg PO DAILY gabapentin 100 mg Tablet 100 mg PO DAILY ondansetron 4 mg tablet,disintegrating 4 mg PO Q6H PRN (Reason: nausea and vomiting) Qty: 10 0RF Stand Alone Forms: Work/School Release Interventions: ED Discharge Assessment Last Done: 04/11/25 13:21 Discharge Date/Time: 04/11/25 13:22 Print Language: Barbadian
[2025-04-11] MEDS: Lactated Ringers 1,000 ML 999 ML IV ×2 (10:47)
[2025-04-11 10:49] VITALS: BP 96/55; PULSE 55; RESP 12; TEMP 36.7; O2SAT 100
[2025-04-11 10:50] LABS: Alanine Aminotransferase 17 U/L (0-31); Albumin Level 4.4 g/dL (3.5-5.0); Alkaline Phosphatase 53 U/L (39-117); Anion Gap 10 (12-20); Aspartate Amino Transferase 24 U/L (5-31); Blood Urea Nitrogen 10 mg/dL (9-16); Calcium 9.0 mg/dL (8.4-10.2); Carbon Dioxide 27 mmol/L (22-29); Chloride 109 mmol/L (96-108); Creatinine Clr Calc Pharmacy 101.8; Estimated Glomerular Filt Rate > 60; Potassium 4.3 mmol/L (3.3-5.1); Sodium 142 mmol/L (135-145); Total Protein 7.0 g/dL (6.5-8.0)
--- OUTSIDE RECORDS SUMMARY | 2025-04-11 11:07 | XMS_ITS | Clinical Summary ---
Author Organization [facility] Address [address] [place] [address] Phone Care Team Providers Care Mold Forms Builder Name Role Phone Savanna Trimble MD Primary Care Provider [phone] Encounters Date Type Department Care Team Description 01/17/2025 11:00 AM EDT - 01/17/2025 11:59 PM EDT Hospital Encounter [facility] [address] [place] [phone] Syncope and collapse (Primary Dx) Discharge Disposition: Home or Self Care 01/16/2025 11:00 AM EDT - 01/16/2025 11:59 PM EDT Hospital Encounter [facility] [address] [place] [phone] Syncope and collapse (Primary Dx) Discharge Disposition: Home or Self Care 01/15/2025 9:19 AM EDT - 01/15/2025 11:59 PM EDT Hospital Encounter [facility] [address] [place] [phone] Discharge Disposition: Home or Self Care from [...] from Last 3 Months Insurance [facility] MEDICAID ADVANTAGE Care Teams Mold Forms Builder Relationship Specialty Start Date End Date Savanna Trimble MD [address] [place] [phone] PCP - General 06/02/23
--- OUTSIDE RECORDS SUMMARY | 2025-04-11 11:07 | XMS_ITS | Clinical Summary ---
Author Organization [facility] Address [address] [place] [address] Care Team Providers Care Manager Zone Name Role Phone Savanna Trimble MD Primary Care Provider [phone] Allergies Active Allergy Reactions Criticality Noted Date [...] age to complete this topic Care Teams Manager Zone Relationship Specialty Start Date End Date Savanna Trimble MD [address] [place] [address] PCP - General Internal Medicine 06/02/23
--- OUTSIDE RECORDS SUMMARY | 2025-04-11 11:07 | XMS_ITS | Data Portability ---
Author Organization [facility], [facility] Address [address] [place] [address] Assessment No assessment recorded. Plan of Treatment Reminders Order Date Submit Date Provider Last Modified By Organization Details Last Modified Time Details Appointments None recorded. Lab urinalysis , dipstick 2023 024 [facility], [address] [place], [address], 4 08:40:33 test, urine 2023 024 [facility], [address] [place], [address], 4 08:40:34 culture, urine 2023 024 [place] [facility], [address] [place] [address], [place], [address], 4 10:06:29 Referral None recorded. Procedures None recorded. Surgeries None recorded. Imaging None recorded. Medication Orders Bactrim DS 800 mg-160 mg tablet 2023 024 [id number], [address] [place], [address], 4 08:40:34 Diflucan 150 mg tablet 2023 024 [id number], [address] [place], [address], 08:40:33 Patient TargetsNo targets recorded. Patient InstructionsNo instructions recorded. Reason for Referral None Reported. Results Created Date Observation Date Name Description Value Unit Range Abnormal Flag Note LastModifiedBy Organization Detail LastModifiedTime 03/19/20 24 03/21/2024 URINE CULTU RE, ROUTI NE urine culture, routine FINAL REPORT Not Available [facility] ([facility]) [address], [place], [address], 03/21/2024 10:06:29 03/19/20 24 03/21/2024 URINE CULTU RE, ROUTI NE result 1 NO GROWTH Not Available [facility] ([facility]) [address], [place], [address], 03/21/2024 10:06:29 03/19/20 24 03/19/2024 urina lysis , dipst ick Unknown Analyte Yellow Not Available [address], [address], 03/19/2024 08:27:32 03/19/20 24 03/19/2024 urina lysis , dipst ick Unknown Analyte Clear Not Available [address], [address], 03/19/2024 08:27:32 03/19/20 24 03/19/2024 urina lysis , dipst ick Unknown Analyte Negati ve Not Available [address], [address], 03/19/2024 08:27:32 03/19/20 24 03/19/2024 urina lysis , dipst ick Unknown Analyte Negati ve Not Available [address], [address], 03/19/2024 08:27:32 03/19/20 24 03/19/2024 urina lysis , dipst ick Unknown Analyte Negati ve Not Available [facility] [address] [place] [address], [address], 03/19/2024 08:27:32 03/19/2003/19/2024 urina lysis , dipst ick Unknown Analyte 1.010 Not Available [address], [address], 03/19/2024 08:27:32 03/19/20 24 03/19/2024 urina lysis , dipst ick Unknown Analyte Negati ve Not Available [facility] [address] [place] [address], [address], 03/19/2024 08:27:32 03/19/2003/19/2024 urina lysis , dipst ick Unknown Analyte 7.5 Not Available [address], [address], 03/19/2024 08:27:32 03/19/20 24 03/19/2024 urina lysis , dipst ick Unknown Analyte Negati ve Not Available [facility] [address] [place] [address], [address], 03/19/2024 08:27:32 03/19/2003/19/2024 urina lysis , dipst ick Unknown Analyte 0.2 E.U./d L Not Available [facility] [address] [place] [address], [phone], 03/19/2024 08:27:32 03/19/2003/19/2024 urina lysis , dipst ick Unknown Analyte Negati ve Not Available [facility] [address] [place] [address], [address], 03/19/2024 08:27:32 03/19/20 24 03/19/2024 urina lysis , dipst ick Unknown Analyte Negati ve Not Available [facility] [address] [place], [address], 03/19/2024 08:27:32 03/19/20 24 03/19/2024 pregn jordi test, urine Unknown Analyte negati ve Not Available [facility] [address] [place], [address], 03/19/2024 08:27:37 03/19/20 24 03/19/2024 pregn jordi test, urine Unknown Analyte Yes Not Available [facility] [address] [place], [address], 03/19/2024 08:27:37 Result Notes None recorded. Problems Name Problem SNOMED Code Status Onset Date Resolution Date Notes Provider Name and Address Organization Details Recorded Time Trigeminal neuralgia 09851362 Active Berta taylor, [place] - [facility] 08:23:35 Gastroesophage al reflux disease 271653022 Active Berta taylor, [place] - [facility] 08:23:41 Acute urinary tract infection 929297204 Active 2023 Sang Love, [address] [place] , [facility] [place], [address] [facility] PA - [facility] 08:39:15 Problem [...] Name and Address Organization Details Recorded Time 053321 iron medicatio n Not available Not available Not available 03/19/2024 83804 RxNorm Lots of iron Berta taylor, [place] - [facility] 08:21:40 853423 azithromy олег medicatio n hives Not available Not available 03/19/2024 61500 RxNorm Berta taylor PA - [facility] 4 08:21:30 427585 adhesive tape environme nt,medica tion Not available Not available Not available 03/19/2024 71558 UNK pt CAN USE PAPER TAPE ONLY [...] Last Updated DateTime 157.48 cm 24.7 kg/m2 91592.9 7 g 97.2 [degF] 17 /min 98 % 98 % 78 /min 97/63 mm[Hg] Berta PERKINS - [facility] 08:26:51 Social History Question Answer Notes LastModified by [employer] Details LastModified Time Tobacco Smoking Status Former Smoker Berta taylor [place] - [facility] 03/19/2024 08:24:49 Which Illicit Or Recreational Drugs Have You Used? Marijuana Information not available 03/19/2024 When Did You Quit Smoking? 6-10yearssince lastcigarette [email or web address] Information not available 03/19/2024 Have You Had A Flu Shot This Season? No [email or web address] Information not available 03/19/2024 If No, Would You Like A Flu Shot Today? No [email or web address] Information not available 03/19/2024 Have You Had Direct Contact, Or Contact During Intimacy, With Monkeypox Rash, Scabs, Or Body Fluids From A Person With Monkeypox? No [email or web address] Information not available 03/19/2024 What Is Your Relationship Status? [email or web address] Information not available 03/19/2024 Have You Recently Traveled Abroad? No [email or web address] Information not available 03/19/2024 Are You Currently In School? No [email or web address] Information not available 03/19/2024 Sex: Unknown Functional Status Question Answer Note LastModified by [employer] Details LastModified Time Do you use any illicit or recreational drugs? Yes [email or web address] Information not available 03/19/2024 Do you or have you ever used any other forms of tobacco or nicotine? No [email or web address] Information not available 03/19/2024 What is your level of alcohol consumption? None [email or web address] Information not available 03/19/2024 Are you currently employed? Yes [email or web address] Information not available 03/19/2024 Mental Status None recorded. Family History Relationship Description Onset Age of this Age Resolved Age Notes LastModified by Organization Details LastModified Time Father No current problems or disability [email or web address] Not available 03/19 08:23:44 Mother Diabetes mellitus [email or web address] Not available 2023 08:23:58 Medical History No [...] SNOMED-CT Code Diagnosis ICD10 Code Diagnosis Note [id number] [facility] [address] [place] [phone] 08/20/2019 10:11:42 08/20/2019 11:34:21 [id number] [facility] [address] [place] [phone] 01/07/2017 11:40:11 01/07/2017 12:30:56 [id number] [place] Love [place] [address] [place] [phone] 03/19/2024 08:10:54 03/19/2024 08:41:37 Acute urinary tract infection 096105883 N39.0 See pcp in 3-4 days. Go [...] Member ID Guarantor Name 03/19/2024 1 [facility] (MEDICAID REPLACEMENT - HMO) [id number] Delia M Blood [id number] Delia Blood 03/19/2024 1 [facility] [id number] Susan Bolaños [id number] Delia Blood 03/19/2024 1 [place]: [facility] Delia Bolaños [id number] Delia Blood Notes Date Note Type Note [...] Sang Love, DO [address] [place], [address], [place] - [facility] 03/19/2024 08:47:29 OBGyn Episode No OBEpisode recorded.
[2025-04-11 13:06] VITALS: BP 101/34; BP 107/46; PULSE 54; RESP 18; TEMP 36.7; O2SAT 97
[2025-04-11 13:07] VITALS: BP 103/65; BP 115/55; PULSE 60; PULSE 64
[2025-04-11 13:17] VITALS: O2SAT 100
[2025-04-11 13:21] VITALS: BP 115/55; PULSE 60; RESP 19; TEMP 36.7; O2SAT 100
== END 2025-04-11 13:22 | disposition home or self-care (01) ==
PROVIDERS: Emergency Provider Emergency Medicine; PCP Internal Medicine
DX: I95.1 Orthostatic hypotension (principal); R11.0 Nausea; Z79.899 Other long term (current) drug therapy
CPT/HCPCS: 36415; 80053; 81025; 85025; 93005; 96360; 96361; 99284; 99285; J7120

== ENCOUNTER → 2025-04-11 10:16 | Outpatient (BNV) | payer OTHER, SELFPAY | PROVIDERS: Emergency Provider Emergency Medicine; PCP Internal Medicine; Visit Provider Internal Medicine | DX: R55 Syncope and collapse (principal) | CPT/HCPCS: 93010 ==

== ENCOUNTER 2025-04-17 08:02 | Outpatient (AMB) | payer OTHER, SELFPAY ==
--- NOTE | 2025-04-17 08:03 | A.OFFVIS_ITS ---
Vital Signs 04/17/25 08:28 BP 65/40 L Blood Pressure Location Rt brachial Intake Visit Reasons: Dysautonomia Allergies erythromycin base Allergy (Unknown, Verified 04/11/25 10:08) unk fludrocortisone Allergy (Unknown, Verified 04/11/25 10:08) unk iron Allergy (Unknown, Verified 04/11/25 10:08) unk midodrine Allergy (Unknown, Verified 04/11/25 10:08) throat itchy tramadol Allergy (Unknown, Verified 04/11/25 10:08) swelling throatand hives adhesive tape Allergy (Verified 04/11/25 10:08) Rash metronidazole Adverse Reaction (Unknown, Verified 04/11/25 10:08) hives/rash/SOB Medication List - Last Reconciled 04/17/25 by Sadie Benton MD [id number] 50-325-40 mg 1 - 2 tabs PO DAILY PRN gabapentin 100 mg PO DAILY ondansetron 4 mg PO Q6H PRN pantoprazole 40 mg PO DAILY pyridostigmine bromide 30 mg PO BID sodium chloride 1,000 mg PO DAILY HPI Comments Details: 29 years old woman with anxiety, bipolar disorder, dysautonomia, and migraine headaches. 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 Her MRI of brain in 2020 in [place] was reported normal. Another MRI of brain in 2023 [facility] did not reveal any significant finding. She is being treated for migraine and symptoms related to dysautonomia. She was having difficult time with dizziness due to low blood pressure. She has been to emergency room couple of times and was noted to have low blood pressure. Her blood pressure today was 65 or 40 and she was feeling tired fatigue and dizzy. She also complain of burning discomfort in her feet and hand, which she attributed to small fiber neuropathy. In addition, she complain of shooting pain right side of the face. She has stopped taking control pills on her headaches have improved but there were still happening around menses. [facility] Medical History (Updated 04/17/25 @ 08:23 by Sadie Benton MD) Gastroparesis POTS (postural orthostatic tachycardia syndrome) Seasonal affective disorder Depression Bipolar disorder Anxiety Dysautonomia Small fiber neuropathy Menstrual migraine Migraine without aura Orthostatic hypotension Migraine Menorrhagia Major depression in full remission Low back pain Irritable bowel syndrome Iron deficiency anemia History of suicide attempt GERD (gastroesophageal reflux disease) Dizziness Asthma Generalized anxiety disorder Abdominal pain Anemia Surgical History History of hernia repair History of ankle surgery History of back surgery History of cholecystectomy History of appendectomy History of section (~04/22/20) Family History Father Lung cancer Mother Diabetes Polythelia Paternal Aunt Lung cancer Breast cancer Social History Household Members: Spouse and Family Patient Tobacco Use Status: Never used Tobacco Substance Use Type: Marijuana service: No Current occupational status: employed Review of Systems Const Details: Constitutional:?No fever, chills, fatigue, weight loss, or night sweats. HEENT:?No vision changes, hearing loss, nasal congestion, sore throat. Neurological:? Complain of dizziness, burning discomfort in hands and feet and pain on right side of face. Psychiatric:?No anxiety, depression, mood swings, sleep disturbance, or hallucinations. Endocrine:?No heat/cold intolerance, polydipsia, polyuria, or hair/skin changes. Hematologic/Lymphatic:?No easy bruising, bleeding, or lymphadenopathy. Integumentary (Skin):?No rash, lesions, itching, or color changes. ? Physical Exam Neuro Other: Mental Status: Alert and oriented to person, place, and time. Normal attention. Normal spontaneous speech, fluency, and comprehension. No obvious issues with mood and memory. Affect is appropriate. Cranial Nerves: CN II: Visual beasley full to confrontation, visual acuity intact. CN III, IV, : Pupils equal, round, reactive to light and accommodation. Extraocular movements are normal. CN V: Facial sensation is normal. CN VII: Facial movements symmetrical. CN VIII: Hearing intact to bedside conversation is normal. CN IX, X: Palate elevates symmetrically. CN XI: Shoulder shrug and head turn symmetrical. CN XII: Tongue midline without atrophy or fasciculations. Extrapyramidal: Full facial expressions and blinking. No rigidity. Movements are appropriate with no tremor or abnormality. Speech: Normal; no dysarthria or tremor. Assessment & Plan Assessment & Plan (1) Migraine without aura and without status migrainosus, not intractable: Comment: [place] [facility] No sig findingRoutine EEG at off in Jul 2023: WNL MRI brain [facility] at [facility] in 2020: Normal (reported) Code(s): G43.009 - Migraine without aura, not intractable, without status migrainosus Category: Medical (2) Dysautonomia: Comment: Meds tried: Fludrocortisone (side effects), midodrine (side effects), Sodium chloride Tilt table testing at [facility] in 2020: Orthostatic intolerance (CBFv declined by 16% associated with hypocapnia - hypocapnic hyperventilation during the tilt), no orthostatic hypotension Code(s): G90.1 - Familial dysautonomia [Asad-Day] Category: Medical (3) Small fiber neuropathy: Comment: Skin biopsy at [facility] in 2020: small fiber neuropathy (reported) [place] [facility] [place]: B12, C3, C4, Anti DsDNA, HIV, RF, Lyme, syphillis, IF, folate: WNL. TREVER 80 (nuclear, homogenous). Code(s): G62.9 - Polyneuropathy, unspecified Category: Medical (4) Neuropathic pain: Comment: Meds tried: Duloxetine, nortriptyline, Prozac, Zoloft, Code(s): M79.2 - Neuralgia and neuritis, unspecified Category: Medical Plan Impression: 1. Dysautonomia resulting in hypotension and multiple related symptoms. She has not responded to sodium chloride, fludrocortisone, or midodrine treatment. 2. Small fiber neuropathy 3. Neuropathic pain related to small fiber neuropathy 4. Migraine without aura Recommendations: 1. Droxidopa 100 mg 3 times a day. 2. Gabapentin 100 mg a day as needed for pain 3. Appropriate hydration and other physical measures to counter orthostatic hypotension or low blood pressure Medications: New droxidopa give consistently with OR without food, upon rising, at midday, late PM/at least 3hrs before bedtime 100 mg PO TID 90 caps 0RF gabapentin 100 mg PO DAILY 90 tabs 0RF Coding Level of Care Code Tele Est Pt Level 5 (61125) Diagnoses Migraine without aura and without status migrainosus, not intractable G43.009 Dysautonomia G90.1 Small fiber neuropathy G62.9 Neuropathic pain M79.2
--- OUTSIDE RECORDS SUMMARY | 2025-04-17 08:07 | XMS_ITS ---
Author Name [facility] Organization Unknown Care Team Organization Name Specialty Phone Email Start Date End Da te [facility] Termed, PROVIDER Primary Care 08/03/202204/26
--- OUTSIDE RECORDS SUMMARY | 2025-04-17 08:07 | XMS_ITS | Clinical Summary ---
Author Organization [facility] Address [address] [place] [address] Phone Care Team Providers Care Curer [employer] Name Role Phone Savanna Trimble MD Primary Care Provider Encounters Date Type Department Care Team Description 01/17/2025 11:00 AM EDT - 01/17/2025 11:59 PM EDT Hospital Encounter [facility] [address] [place] [phone] Syncope and collapse (Primary Dx) Discharge Disposition: Home or Self Care 01/16/2025 11:00 AM EDT - 01/16/2025 11:59 PM EDT Hospital Encounter [facility] [address] [place] [phone] Syncope and collapse (Primary Dx) Discharge Disposition: Home or Self Care from [...] Last Done Comments Hepatitis B Vaccines (1 3 - 19+ 3-dose series) 2013 Pneumococcal Vaccine: Pediat rics (0 to 5 Years) and At-Risk Patients (6 to 49 Years) (1 of 2 - PCV) 2013 Cervical Cancer Screening: P ap Smear 12/24/2015 HIV Screening 11/13/2022 Hepatitis C Screening 11/13/2022 Social Influencers of Health Screening 11/13/2022 COVID-19 Vaccine (1 - 2023-2 5 season) 2024 Depression Screening 09/26/2024 Influenza Vaccine (#1) 2025 08/02/2009 DTaP,Tdap,and Td [...] on patient's age to complete this topic Insurance [facility] MEDICAID ADVANTAGE Care Teams Curer [employer] Relationship Specialty Start Date End Date Savanna Trimble MD [address] [place] [address] PCP - General 06/02/23
--- OUTSIDE RECORDS SUMMARY | 2025-04-17 08:07 | XMS_ITS | Data Portability ---
Author Organization MADDIE Blanco s, [address] Address [address] [place] [address] Assessment No assessment recorded. Plan of Treatment Reminders Order Date Submit Date Provider Last Modified By Organization Details Last Modified Time Details Appointments None recorded. Lab urinalysis , dipstick 2023 024 [email or web address], [address] [place], [address], 4 08:40:33 test, urine 2023 024 [email or web address], [address] [place], [address], 4 08:40:34 culture, urine 2023 024 [facility], [address] [place] [address], [place], [address], 4 10:06:29 Referral None recorded. Procedures None recorded. Surgeries None recorded. Imaging None recorded. Medication Orders Bactrim DS 800 mg-160 mg tablet 2023 024 [facility][id number], [address] [place], [address], 4 08:40:34 Diflucan 150 mg tablet 2023 024 [facility] #[id number], [address] [place], [address], 08:40:33 Patient TargetsNo targets recorded. Patient InstructionsNo instructions recorded. Reason for Referral None Reported. Results Created Date Observation Date Name Description Value Unit Range Abnormal Flag Note LastModifiedBy Organization Detail LastModifiedTime 03/19/20 24 03/21/2024 URINE CULTU RE, ROUTI NE urine culture, routine FINAL REPORT Not Available [facility] ([facility]) [address], [place], [address], 03/21/2024 10:06:29 03/19/20 24 03/21/2024 URINE CULTU RE, ROUTI NE result 1 NO GROWTH Not Available [facility] ([facility]) [address], [place], [address], 03/21/2024 10:06:29 03/19/20 24 03/19/2024 urina lysis , dipst ick Unknown Analyte Yellow Not Available [address], [address], 03/19/2024 08:27:32 03/19/20 24 03/19/2024 urina lysis , dipst ick Unknown Analyte Clear Not Available [address], [address], 03/19/2024 08:27:32 03/19/20 24 03/19/2024 urina lysis , dipst ick Unknown Analyte Negati ve Not Available [address], [address], 03/19/2024 08:27:32 03/19/20 24 03/19/2024 urina lysis , dipst ick Unknown Analyte Negati ve Not Available [address], [address], 03/19/2024 08:27:32 03/19/20 24 03/19/2024 urina lysis , dipst ick Unknown Analyte Negati ve Not Available [facility] [address] [place] [address], [address], 03/19/2024 08:27:32 03/19/2003/19/2024 urina lysis , dipst ick Unknown Analyte 1.010 Not Available [address], [address], 03/19/2024 08:27:32 03/19/20 24 03/19/2024 urina lysis , dipst ick Unknown Analyte Negati ve Not Available [facility] [address] [place] [address], [address], 03/19/2024 08:27:32 03/19/2003/19/2024 urina lysis , dipst ick Unknown Analyte 7.5 Not Available [address], [address], 03/19/2024 08:27:32 03/19/20 24 03/19/2024 urina lysis , dipst ick Unknown Analyte Negati ve Not Available [facility] [address] [place] [address], [address], 03/19/2024 08:27:32 03/19/2003/19/2024 urina lysis , dipst ick Unknown Analyte 0.2 E.U./d L Not Available [facility] [address] [place] [address], [address], 03/19/2024 08:27:32 03/19/2003/19/2024 urina lysis , dipst ick Unknown Analyte Negati ve Not Available [facility] [address] [place] [address], [address], 03/19/2024 08:27:32 03/19/20 24 03/19/2024 urina lysis , dipst ick Unknown Analyte Negati ve Not Available [facility] [address] [address] [place], [address], 03/19/2024 08:27:32 03/19/20 24 03/19/2024 pregn jordi test, urine Unknown Analyte negati ve Not Available [facility] [address] [place], [address], 03/19/2024 08:27:37 03/19/20 24 03/19/2024 pregn jordi test, urine Unknown Analyte Yes Not Available [facility] [address] [place], [address], 03/19/2024 08:27:37 Result Notes None recorded. Problems Name Problem SNOMED Code Status Onset Date Resolution Date Notes Provider Name and Address Organization Details Recorded Time Trigeminal neuralgia 20908174 Active Berta taylor, [place] - [facility] 08:23:35 Gastroesophage al reflux disease 681514154 Active Berta taylor, [place] - [facility] 08:23:41 Acute urinary tract infection 844212333 Active 2023 Sang Love, [address] [place] , [place], [address] [facility] PA - [facility] 08:39:15 [...] Name and Address Organization Details Recorded Time 181364 iron medicatio n Not available Not available Not available 03/19/2024 72160 [employer]Norm Lots of iron Berta taylor, PA - [facility] 08:21:40 199143 azithromy олег medicatio n hives Not available Not available 03/19/2024 02336 RxNorm Berta taylor PA - [facility] 4 08:21:30 168423 adhesive tape environme nt,medica tion Not available Not available Not available 03/19/2024 58159 UNK pt CAN USE PAPER TAPE ONLY [...] height Body mass index (BMI) Body weight Pain severity - 0-10 verbal numeric rating [Score] - Reported Body temperature Respiratory rate Oxygen saturation Oxygen saturation in Arterial blood by Pulse oximetry Heart rate Systolic And Diastolic Provider Name and Address Organization Details Last Updated DateTime 4 157.48 cm 24.7 kg/m2 81160.9 7 g 4 97.2 [degF] 17 /min 98 % 98 % 78 /min 97/63 mm[Hg] Berta Christine PA - [facility] 08:26:51 Social History Question Answer Notes LastModified by [employer] Details LastModified Time Tobacco Smoking Status Former Smoker Berta taylor [place] - [facility] 03/19/2024 08:24:49 Which Illicit Or Recreational Drugs Have You Used? Marijuana [email or web address] Information not available 03/19/2024 When Did You Quit Smoking? 6-10yearssince lastcigarette Information not available 03/19/2024 Have You Had A Flu Shot This Season? No [email or web address] Information not available 03/19/2024 If No, Would You Like A Flu Shot Today? No [email or web address] Information not available 03/19/2024 Have You Had Direct Contact, Or Contact During Intimacy, With Monkeypox Rash, Scabs, Or Body Fluids From A Person With Monkeypox? No [email or web address] Information not available 03/19/2024 What Is Your Relationship Status? [email or web address] Information not available 03/19/2024 Have You Recently Traveled Abroad? No [email or web address] Information not available 03/19/2024 Are You Currently In School? No [email or web address] Information not available 03/19/2024 Sex: Unknown Functional Status Question Answer Note LastModified by [employer] ion Details LastModified Time Do you use any illicit or recreational drugs? Yes [email or web address] Information not available 03/19/2024 Do you or have you ever used any other forms of tobacco or nicotine? No Information not available 03/19/2024 What is your level of alcohol consumption? None [email or web address] Information not available 03/19/2024 Are you currently employed? Yes [email or web address] Information not available 03/19/2024 Mental Status None recorded. Family History Relationship Description Onset Age of this Age Resolved Age Notes LastModified by Organization Details LastModified Time Father No current problems or disability Not available 03/19 08:23:44 Mother Diabetes mellitus Not available 2023 08:23:58 Medical History No medical history recorded. Gynecological History Statement/Question Response Date of LMP 03/05/2024 Is there any chance of ? No LMP Approximate Obstetrics History GPAL:G 0 P 0 0 0 0 Immunizations Vaccine Type Date Status Note Provider Nam e and Address Organization Details Recorded Time Tdap 07/04/2022 completed MADDIE Johnson - [facility] 03/19/2024 08:20:52 Past Encounters Encounter ID Performer Location Encounter Start Date Encounter Closed Date Diagnosis/Indication Diagnosis SNOMED-CT Code Diagnosis ICD10 Code Diagnosis Note [id number] 20994[facility] [address] [place] [address] 08/20/2019 10:11:42 08/20/2019 11:34:21 [id number] [place] [phone] 01/07/2017 11:40:11 01/07/2017 12:30:56 [id number] Sang Love DO [address] [place] [address] 03/19/2024 08:10:54 03/19/2024 08:41:37 Acute urinary tract infection 395853133 N39.0 See pcp in 3-4 days. Go [...] ID Rodriguez Member ID Guarantor Name 03/19/[address] [address] (MEDICAID REPLACEMENT - HMO) [id number] Delia Jones Blood [id number] Delia Blood 03/19/2024 1 [facility] [id number] Susan Bolaños [id number] Delia Blood 03/19/2024 1 [place] [facility] Delia Bolaños [id number] Delia Blood Notes Date Note Type Note [...] Sang Love, DO [address] [place], [address], [place] - [facility] 03/19/2024 08:47:29 OBGyn Episode No OBEpisode recorded.
--- OUTSIDE RECORDS SUMMARY | 2025-04-17 08:07 | XMS_ITS | Clinical Summary ---
[facility] Address [address] [place] [address] Care Team Providers Care Associate Professor Of Anthropology Name Role Phone Savanna Trimble MD Primary Care Provider +1- [phone] Allergies Active Allergy Reactions Criticality Noted Date [...] age to complete this topic Care Teams Associate Professor Of Anthropology Relationship Specialty Start Date End Date Savanna Trimble MD [address] [place] [address] PCP - General Internal Medicine 06/02/23
[2025-04-17 08:28] VITALS: BP 65/40
== END 2025-04-17 08:30 | disposition home or self-care (01) ==
LOC: HO.HSM 08:03
PROVIDERS: PCP Internal Medicine; Referring Provider Internal Medicine; Visit Provider Psychiatry & Neurology Neurology
DX: G43.009 Migraine without aura, not intractable, without status migrainosus (principal); G90.1 Familial dysautonomia [Riley-Day]; G62.9 Polyneuropathy, unspecified
CPT/HCPCS: 99214

== ENCOUNTER → 2025-04-17 08:02 | Outpatient (BNVA) | payer OTHER, SELFPAY | PROVIDERS: PCP Internal Medicine; Referring Provider Internal Medicine; Visit Provider Psychiatry & Neurology Neurology | DX: G43.009 Migraine without aura, not intractable, without status migrainosus (principal); G90.1 Familial dysautonomia [Riley-Day]; G62.9 Polyneuropathy, unspecified; M79.2 Neuralgia and neuritis, unspecified | CPT/HCPCS: 99212 ==

== ENCOUNTER 2025-04-24 12:44 | Outpatient (REF) | payer OTHER, SELFPAY ==
--- OUTSIDE RECORDS SUMMARY | 2025-04-24 13:18 | XMS_ITS | Clinical Summary ---
Author Organization [facility] Address [address] [place] [address] Phone Care Team Providers Care Safety Attendant Name Role Phone Savanna Trimble MD Primary Care Provider Social History Tobacco Use Types Packs/Day Years [...] patient's age to complete this topic Insurance [facility] MEDICAID ADVANTAGE Care Teams Safety Attendant Relationship Specialty Start Date End Date Savanna Trimble MD [address] [place] [address] PCP - General 06/02/23
--- OUTSIDE RECORDS SUMMARY | 2025-04-24 13:18 | XMS_ITS | Clinical Summary ---
Author Organization [facility] Address [address] [place] [address] Care Team Providers Care Rivet Passer Name Role Phone Savanna Trimble MD Primary Care Provider +1- [phone] Allergies Active Allergy Reactions Criticality Noted Date [...] age to complete this topic Care Teams Rivet Passer Relationship Specialty Start Date End Date Savanna Trimble MD [address] [place] [address] PCP - General Internal Medicine 06/02/23
--- OUTSIDE RECORDS SUMMARY | 2025-04-24 13:18 | XMS_ITS | Clinical Summary ---
Author Organization [facility] Address [address] [facility] [address] [place] [phone] Phone Care Team Providers Care Director Of Graduate Admissions Name Role Phone Taylor Avila MD Primary Care Provid er Savanna Trimble MD Unavailable Allergies Active Allergy Reactions Criticality Noted Date Comments Erythromycin 10/05/2019 Fludrocortisone 02/17/2018 Palpitations, dizziness Hydrocodone-Acetaminophen 08/19/2023 Iron 11/27/2014 Sucrose throat closing heart rate elevated bp dropped Metronidazole Hives Medium 06/30/2015 Midodrine 08/19/2023 Gkqtzjt-Bshsndakw-Xvkijubzye h n 11/07/2019 Nitrous Oxide 07/07/2016 Hysterical Ntzbpfgse-Vrwprj-Qklgkmoc-Sc o p 08/19/2023 Tramadol 11/27/2014 Throat closing/rash Medications gabapentin (NEURONTIN) 100 MG capsule Take 100 mg by mouth 2 (two) times a day. 4 Active ondansetron (ZOFRAN-ODT) 4 MG disintegrating tablet Take 4 mg by mouth. 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 Chromogranin stain shows linear and micronodular type ECL-like hyperplasia. These findings support diagnosis of autoimmune (atrophic) gastritis. Previously followed with [facility] Mike Calero and reportedly discharged from the gastroenterology practice Assessment & Plan (03/04/2025 12:33 PM EDT): Most recent GI note from 08/2024 reviewed today. Documented atrophic/autoimmune gastritis is an incidental finding and would not be the cause of her longstanding GI symptoms. Given normal B12 and iron studies, GI symptoms were attributed to IBS, POTS /dysautonomia, and gastroparesis. Isolated autoimmune gastritis is a very unlikely manifestation of underlying inflammatory arthritis or autoimmune connective tissue disease. Unfortunately, I do not have a rheumatology specific intervention to offer this patient. Iron deficiency 03/04/2025 Positive TREVER (antinuclear antibody) 03/04/2025 Overview (03/04/2025): Outside labs 07/2023 RF negative C3 normal C4 normal anti-dsDNA negative TREVER 1:80 homogenous (per chart review) Assessment & Plan (03/04/2025 12:36 PM EDT): Borderline elevation of TREVER is of questionable clinical significance. There is no specific historical, physical, or serologic evidence concerning for underlying autoimmune connective tissue disease such as lupus. We discussed the distinction between autoimmune and structural connective tissue disease. I have ordered additional and repeat labs for completeness, though there is no current indication for initiation of hydroxychloroquine or aggressive immunosuppression. POTS (postural orthostatic tachycardia syndrome) 10/05/2019 Assessment & Plan (03/04/2025 12:41 PM EDT): Most recent neurology office note (date of service 01/23/2025), Dr. Armani Benton, reviewed today. She has tried and either failed or not tolerated multiple medications for small fiber neuropathy and dysautonomia. Again, I have no rheumatology specific interventions to offer this patient. It may be beneficial for her to see Dr. Sheppard at [facility] in [place] moving forward. 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 Encounters Date Type Department Care Team Description 03/12/2025 10:53 AM EDT - 03/12/2025 11:59 PM EDT Hospital Encounter [facility] [address] [place] [address] Mari Short MD, MPH Discharge Disposition: Home or Self Care 03/12/2025 Orders Only [facility] [address] [place] [address] [place] Benitez Iron deficiency; Positive TREVER (antinuclear antibody) 03/04/2025 9:10 AM EDT Office Visit [facility] [address] [place] [address] Mari Short MD, MPH Positive TREVER (antinuclear antibody) (Primary Dx); Iron deficiency; Autoimmune gastritis; POTS (postural orthostatic tachycardia syndrome) 03/04/2025 Orders Only [facility] [address] [place] [address] ProviderCarly MD 03/04/2025 Telephone [facility] [address] [place] [address] [place] [address] Mari Short MD, MPH from Last 3 Months Family History Medical History Relation Comments Coronary artery disease Father Hypertension Maternal Grandfather Stroke Maternal Grandmother multiple TI As Diabetes Mother type 2 Hypertension Mother Polycythemia Mother polycythemia tre a Cancer Paternal Aunt ovarian age 20s; lung in 50s Myasthenia gravis Paternal Aunt Cancer Paternal Grandfather leukemia Heart disease Paternal Grandfather Cancer Paternal Grandmother lung No Known Problems Son Thyroid disease Neg Hx Relation Status Comments Father Maternal Grandfather Maternal Grandmother Mother Paternal Aunt Paternal Grandfather Paternal Grandmother Son Social History Tobacco Use Types Packs/Day Years Used Date Smoking Tobacco: Never Smokeless Tobacco: Never Alcohol Use Standard Drinks/Week Comments Not Currently 0 (1 standard drink = 0.6 oz pur e alcohol) Education Answer Date Recorded Are you interested in more education? Not on zoë e 01/21/2023 Are you concerned about learning? Not on file 01/21/2023 No 01/21/2023 No 01/21/2023 Digital Access Answer Date Recorded No 02/22/2023 No 02/22/2023 Reliable internet access at home? Not on file 02/22/2023 Device with a working camera? Not on file Comments No Sex and Gender Information Value Date Recorded Sex Assigned at Female 09/06/2019 8:01 AM EST Legal Sex Female 3:15 PM EDT Gender Identity Female 09/06/2019 8:01 AM EST Sexual Orientation Straight 09/06/2019 8: 01 AM EST Last Filed Vital Signs Vital Sign Reading Time Taken Comments Blood Pressure 128/62 03/04/2025 9:07 AM EDT Pulse 78 03/04/2025 9:07 AM EDT Temperature 36.3 C (97.3 F) 08/19/2023 3:03 PM EST Respiratory Rate 17 08/19/2023 3:03 PM EST Oxygen Saturation 98% 03/04/2025 9:07 AM EDT Inhaled Oxygen Concentration - - Weight 60.8 kg (134 lb) 03/04/2025 9:07 AM EDT Height 157.5 cm (5' 2 ) 03/04/2025 9:07 AM EDT Body Mass Index 24.51 03/04/2025 9:07 AM EDT Plan of Treatment Health Maintenance Due Date Last Done Comments HEPATITIS C SCREENING 2012 HIV ONE-TIME SCREENING (18-6 5 YEARS) 2012 PNEUMOCOCCAL VACCINES (0-49 years) (1 of 2 - PCV) 2013 DEPRESSION SCREENING 08/07/2021 08/07/2020 PAP SMEAR 04/17/2022 04/17/2019 COVID-19 VACCINE (1 - 2023-2 5 season) 2024 Adult Td,Tdap Booster 07/04/2032 07/04/2022 SMOKING STATUS SCREENING (On ce After 26 Yrs) Completed 03/04/2025 HEPATITIS A VACCINES Aged Out No long er eligible based on patient's age to complete this topic HIB VACCINES Aged Out No longer eligi ble based on patient's age to complete this topic MENINGOCOCCAL VACCINES (ACWY) Aged Out No longer eligible based on patient's age to complete this topic MENINGOCOCCAL VACCINES (B) Aged Out N o longer eligible based on patient's age to complete this topic Medical Devices Not on file Procedures Procedure Name Priority Date/Time Associated Diagnosis Comments Antinuclear antibody, titer and pattern Routine 03/12/2025 10:53 AM EDT CBC AND DIFFERENTIAL Routine 03/12/2025 10:53 AM EDT Positive TREVER (antinuclear antibody) DOUBLE STRANDED DNA ANTIBODIES Routine 03/12/2025 10:53 AM EDT Positive TREVER (antinuclear antibody) Extractable nuclear antigen (CRISTOFER) antibodies Routine 03/12/2025 10:53 AM EDT Positive TREVER (antinuclear antibody) COMPLEMENT C3 Routine 03/12/2025 10:53 AM EDT Positive TREVER (antinuclear antibody) COMPLEMENT C4 Routine 03/12/2025 10:53 AM EDT Positive TREVER (antinuclear antibody) CPK (CREATINE KINASE) Routine 03/12/2025 10:53 AM EDT Positive TREVER (antinuclear antibody) COMPREHENSIVE METABOLIC PANEL Routine 03/12/2025 10:53 AM EDT Positive TREVER (antinuclear antibody) VITAMIN B12 Routine 03/12/2025 10:53 AM EDT Positive TREVER (antinuclear antibody) URINALYSIS WITH SEDIMENT Routine 03/12/2025 10:53 AM EDT Positive TREVER (antinuclear antibody) ANTINUCLEAR ANTIBODY (TREVER) Routine 03/12/2025 10:53 AM EDT Positive TREVER (antinuclear antibody) IRON AND IRON BINDING CAPACITY Routine 03/12/2025 10:53 AM EDT Iron deficiency FERRITIN Routine 03/12/2025 10:53 AM EDT Iron deficiency from Last 3 Months Results * Antinuclear antibody, titer and pattern (03/12/2025 10:53 AM EDT) TREVER TITER 1:160 Homogeneous [facility] 03/12/2025 10:5 3 AM EDT 03/12/2025 10:58 AM EDT Mari Short MD, MPH LAB BLOOD ORDERABLES Fin al Result Performing Organization Address [facility]/ZIP Co de Phone Number [facility] [address] [place] [address] * Extractable nuclear antigen (CRISTOFER) antibodies (03/12/2025 10:53 AM EDT) SS-A/RO IGG 0.2 <1.0 (Negative) [facility] [address] SS-B/LA IGG <0.2 <1.0 (Negative) U [facility] LAB MED/PATH [address] SM AB, IGG, S <0.2 <1.0 (Negative) U [facility] MED/PATH [address] DONOR SERVICES MANAGER AB, IGG <0.2 <1.0 (Negative) U [facility] LAB MED/PATH [address] SCL 70 AB, IGG <0.2 <1.0 (Negative) U [facility] LAB MED/PATH [address] VINNIE 1 IGG <0.2 <1.0 (Negative) U [facility]/PATH [place] Blood 03/12/2025 10:5 3 AM EDT 03/12/2025 10:58 AM EDT Mari Short MD, MPH LAB BLOOD ORDERABLES Fin al Result Performing Organization Address City/[facility]/ZIP Co de Phone Number [facility] LAB MED/PATH [address] [place] [address] * (ABNORMAL) Urinalysis with sediment (03/12/2025 10:53 AM EDT) WBC 0-4(A) NONE SEEN /hpf [facility] RBC NONE SEEN NONE SEEN /hpf [facility] URINE EPITHELIAL NONE SEEN NONE SEEN [facility] MUCUS Trace(A) NONE SEEN /hpf [facility] BACTERIA NONE SEEN NONE SEEN /hpf [facility] COLOR Yellow Yellow [facility] CLAR[facility] Clear [facility] GLUCOSE Negative Negative [facility] BILI Negative Negative [facility] KETONES Negative Negative [facility] SPECIFIC GRAVITY 1.020 1.005 - 1.030 [facility] BLOOD Negative Negative [facility] PH 6.0 5.0 - 8.0 [facility] Protein-UA Negative Negative [facility] NITRITE Negative Negative [facility] Leukocyte esterase, ur Negative Negative [facility] Urine (Urine) 03/12/2025 10: 53 AM EDT 03/12/2025 4:43 PM EDT us Mari Short MD, MPH URINE ORDERABLES Final R esult [address] [address] * Comprehensive metabolic panel (03/12/2025 10:53 AM EDT) SODIUM 137 133 - 146 mmol/L [facility] POTASSIUM 3.8 3.3 - 5.1 mmol/L [facility] CHLORIDE 103 96 - 108 mmol/L [facility] CO2 23 21 - 35 mmol/L [facility] BUN 12 6 - 19 mg/dL [facility] CREATININE 0.60 0.5 - 1.5 mg/dL [facility] GLUCOSE 85 70 - 99 mg/dL [facility] ALBUMIN 4.3 3.9 - 4.8 g/dL [facility] TOTAL PROTEIN 7.4 6.5 - 8.0 g/dL [facility] CALCIUM 9.3 8.4 - 10.3 mg/dL [facility] ALKALINE PHOSPHATASE 65 39 - 117 U/L [facility] TOTAL BILIRUBIN <0.2 0.0 - 1.2 mg/dL [facility] AST 21 0 - 37 U/L [facility] ALT 14 0 - 40 U/L [facility] GLOBULIN 3.1 1 - 4.8 g/dL [facility] EGFR >120 >59 mL/min/1.7 3m2 [facility] Comment:Estimated glomerular filtration rate calculated using the CKD-EPI refit equation. ANION GAP 15 10 - 20 mmol/L [facility] Blood 03/12/2025 10:5 3 AM EDT 03/12/2025 10:[address] [facility] Mari Short MD, MPH LAB BLOOD ORDERABLES Fin al Result [address] [address] * (ABNORMAL) Iron and iron binding capacity (03/12/2025 10:53 AM EDT) IRON 16(L) 30 - 160 ug/dL [facility] IRON BINDING CAPACITY 385 228 - 428 ug/dL [facility] TRANSFERRIN SATURAT. 4(L) 15 - 50 % [facility] Blood 03/12/2025 10:5 3 AM EDT 03/12/2025 10:[address] [facility] Mari Short MD, MPH LAB BLOOD ORDERABLES Fin al Result Performing Organization Address [facility] Co de Phone Number [address] [address] * Double stranded DNA antibodies (03/12/2025 10:53 AM EDT) ANTI DSDNA ANTIBODY Negative at 1:10 [facility] Comment: Performing Pathologist, Vero Santos M.D., Ph.D. [phone] Normal: Negative at 1:10 To interpret a negative test for anti-kotlik or double stranded DNA antibodies in a patient suspected of having systemic lupus erythematosus, the following limitation should be noted. Anti-double stranded DNA antibodies are usually detected in SLE patients with active disease, especially in those with active renal disease. Anti-DNA antibodies are usually not detected in SLE patients with spontaneous or drug-induced remissions. Blood 03/12/2025 10:5 3 AM EDT 03/12/2025 10:[address] [facility] Mari Short MD, MPH LAB BLOOD ORDERABLES Fin al Result Performing Organization Address City/[facility]/ZIP Co de Phone Number [address] [address] * (ABNORMAL) CBC and differential (03/12/2025 10:53 AM EDT) WBC 7.26 4.00 - 11.00 K/uL [facility] RBC 4.68 4.00 - 5.20 M/uL [facility] HGB 10.6(L) 12.0 - 16.0 g/dL [facility] HCT 35.2(L) 36.0 - 46.0 % [facility] PLT 229 150 - 450 K/uL [facility] MCV 75.2(L) 80.0 - 100.0 fL [facility] MCH 22.6(L) 27.0 - 31.0 pg [facility] MCHC 30.1(L) 32.0 - 36.0 g/dL [facility] RDW 15.9(H) 11.5 - 14.5 % [facility] MPV 11.7 8.4 - 12.0 fL [facility] NRBC 0.00 0.00 /100 WBCs [facility] ABSOLUTE NRBC 0.00 0.00 K/uL [facility] DIFF METHOD Auto [facility] NEUTS 67.9 48.0 - 76.0 % [facility] LYMPHS 24.5 18.0 - 41.0 % [facility] MONOS 6.3 4.0 - 11.0 % [facility] EOS 0.8 0.0 - 5.0 % [facility] BASOS 0.4 0.0 - 1.5 % [facility] Granulocytes, immature (%) 0.1 0.0 - 0.9 % [facility] ABSOLUTE NEUTS 4.92 1.92 - 7.60 K/uL [facility] ABSOLUTE LYMPHS 1.78 0.72 - 4.10 K/uL [facility] ABSOLUTE MONOS 0.46 0.16 - 1.10 K/uL [facility] ABSOLUTE EOS 0.06 0.00 - 0.50 K/uL [facility] ABSOLUTE BASOS 0.03 0.00 - 0.15 K/uL [facility] Granulocytes, immature 0.01 0.00 - 0.09 K/uL [facility] Blood 03/12/2025 10:5 3 AM EDT 03/12/2025 10:58 AM EDT us Mari Short MD, MPH LAB BLOOD ORDERABLES Fin al Result Performing Organization Address City/[facility]/ZIP Co de Phone Number [address] [address] * Complement C3 (03/12/2025 10:53 AM EDT) C3 121 81 - 157 mg/dl [facility] Blood 03/12/2025 10:5 3 AM EDT 03/12/2025 10:58 AM EDT Mari Short MD, MPH LAB BLOOD ORDERABLES Fin al Result Performing Organization Address [facility] Co de Phone Number [address] [address] * Complement C4 (03/12/2025 10:53 AM EDT) C4 21 12 - 39 mg/dL [facility] Blood 03/12/2025 10:5 3 AM EDT 03/12/2025 10:58 AM EDT us Mari Short MD, MPH LAB BLOOD ORDERABLES Fin al Result Performing Organization Address [facility] Co de Phone Number [address] [address] * (ABNORMAL) Antinuclear antibody (TREVER) (03/12/2025 10:53 AM EDT) TREVER SCREEN ON HEP 2 Positive(A ) Negative [facility] Comment:An TREVER Titer has bee n reflexed. The results will follow. Blood 03/12/2025 10:5 3 AM EDT 03/12/2025 10:58 AM EDT us Mari Short MD, MPH LAB BLOOD ORDERABLES Fin al Result Performing Organization Address [facility] Co de Phone Number [address] [address] * (ABNORMAL) Ferritin (03/12/2025 10:53 AM EDT) FERRITIN 8(L) 13 - 150 ug/L [facility] Blood 03/12/2025 10:5 3 AM EDT 03/12/2025 10:58 AM EDT Mari Short MD, MPH LAB BLOOD ORDERABLES Fin al Result [address] [address] * Vitamin B12 (03/12/2025 10:53 AM EDT) VITAMIN B12 546 232 - 1,245 pg/mL [facility] Blood 03/12/2025 10:5 3 AM EDT 03/12/2025 10:58 AM EDT Mari Short MD, MPH LAB BLOOD ORDERABLES Fin al Result Performing Organization Address [facility] Co de Phone Number [address] [address] * CPK (creatine kinase) (03/12/2025 10:53 AM EDT) CREATINE KINASE 73 21 - 215 U/L [facility] Blood 03/12/2025 10:5 3 AM EDT 03/12/2025 10:[address] [facility] Mari Short MD, MPH LAB BLOOD ORDERABLES Fin al Result Performing Organization Address City/[facility] Co de Phone Number [address] [address] from Last 3 Months Insurance [employer] Member Subscriber Plan / Payer (Ef fective 2023-Present) Name:Blood, Delia Aleena Relation to Subscriber:Self Name:Blood, Delia Aleena Payer ID:Not on file Type:Medicaid Address: [address] [address] * Guarantor: Blood, Delia Aleena Account Type Relation to Patient Date of Phone Billing Address Personal/Family Self [address] [place] [address] [employer]NERSHIP A[employer] Member Subscriber Plan / Payer (Ef fective 2023-Present) Name:Blood, Delia Aleena Relation to Subscriber:Self Name:Blood, Delia Aleena Payer ID:Not on file Type:Medicaid Address: [address] [phone] * Guarantor: Blood, Delia Aleena Account Type Relation to Patient Date of Phone Billing Address Personal/Family Self [address] [place] [address] [employer] Member Subscriber Plan / Payer (Ef fective 2023-) Name:Blood, Delia Aleena Relation to Subscriber:Self Name:Blood, Delia Aleena Payer ID:Not on file Type:Medicaid Address: [address] [address] * Guarantor: Blood, Delia Aleena Account Type Relation to Patient Date of Phone Billing Address Personal/Family Self [address] [place] [address] [employer] Member Subscriber Plan / Payer (Ef fective 2023-Present) Name:Blood, Delia Aleena Relation to Subscriber:Self Name:BloodDeliae Payer ID:Not on file Type:Medicaid Address: [address] [address] * Guarantor: Blood, Delia Aleena Account Type Relation to Patient Date of Phone Billing Address Personal/Family Self [address] [place] [id number] [place] [address] ACO Member Subscriber Plan / Payer ( fective 2023-Present) Name:Blood, Delia Aleena Relation to Subscriber:Self Name:BloodDeliae Payer ID:Not on file Type:Medicaid Address: [address] [address] * Guarantor: Blood, Delia Aleena Account Type Relation to Patient Date of Phone Billing Address Personal/Family Self [address] [place] [id number] [place] [address] ACO Member Subscriber Plan / Payer ( fective 2023-Present) Name:Blood, Delia Aleena Relation to Subscriber:Self Name:BloodDeliae Payer ID:Not on file Type:Medicaid Address: [address] [address] * Guarantor: Blood, Delia Aleena Account Type Relation to Patient Date of Phone Billing Address Personal/Family Self [address] [place] [phone] * Guarantor: Blood, Delia Aleena Account Type Relation to Patient Date of Phone Billing Address Personal/Family Self [address] [place] [phone] * Guarantor: Blood, Delia Aleena Account Type Relation to Patient Date of Phone Billing Address Personal/Family Self [address] [facility] [address] [place] [address] Care Teams Director Of Graduate Admissions Relationship Specialty Start Date End Date Taylor Avila MD [address] [facility] [address] [place] [address] PCP - General Internal Medicine 02/10/18 Savanna Trimble MD [address] [facility] [address] [place] [address] Internal Medicine 03/04/25 Additional Source Comments The information contained in this document represents components of the legal health record. It is not the complete legal health record.[facility]
== END 2025-04-24 12:45 | disposition home or self-care (01) ==
LOC: HO.LAB 12:44
PROVIDERS: PCP Internal Medicine; Visit Provider Psychiatry & Neurology Neurology
DX: G62.9 Polyneuropathy, unspecified (principal); G90.1 Familial dysautonomia [Riley-Day]
CPT/HCPCS: 83519

== ENCOUNTER 2025-05-16 08:41 | Outpatient (AMB) | payer OTHER, SELFPAY ==
--- NOTE | 2025-05-16 08:49 | MHC.OFFVIS ---
Intake Visit Reasons: 1 m for Dysautonomia Allergies erythromycin base Allergy (Unknown, Verified 04/11/25 10:08) unk fludrocortisone Allergy (Unknown, Verified 04/11/25 10:08) unk iron Allergy (Unknown, Verified 04/11/25 10:08) unk midodrine Allergy (Unknown, Verified 04/11/25 10:08) throat itchy tramadol Allergy (Unknown, Verified 04/11/25 10:08) swelling throatand hives adhesive tape Allergy (Verified 04/11/25 10:08) Rash metronidazole Adverse Reaction (Unknown, Verified 04/11/25 10:08) hives/rash/SOB HPI Comments Details: 29 years old woman with anxiety, bipolar disorder, dysautonomia, and migraine headaches. 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 Her MRI of brain in 2020 in [place] was reported normal. Another MRI of brain in 2023 it [facility] did not reveal any significant finding. She is being treated for migraine and symptoms related to dysautonomia. She is presenting with orthostatic hypotension. Following an emergency room visit two months prior, Dr. Christianson prescribed IV hydration leading to weekly lactated Ringer's infusions, slightly improving her hypotension. She obtained insurance approval for Droxidopa but requires a prescription transfer to a specialty pharmacy. Additionally, pyridostigmine authorization is pending. For her trigeminal neuralgia and small fiber neuropathy, she takes gabapentin as needed, detailing significant right-sided facial pain unresponsive to NSAIDs or acetaminophen. Further complicating her condition, gastroparesis hinders adequate oral hydration. She also reports profound fatigue with low ferritin and hemoglobin levels contributing to dyspnea and chest pain. She awaits EEG results from [facility] to further evaluate her neurological status. [facility] Medical History (Updated 05/16/25 @ 09:04 by Sadie Benton MD) Gastroparesis POTS (postural orthostatic tachycardia syndrome) Seasonal affective disorder Depression Bipolar disorder Anxiety Dysautonomia Small fiber neuropathy Menstrual migraine Migraine without aura Orthostatic hypotension Migraine Menorrhagia Major depression in full remission Low back pain Irritable bowel syndrome Iron deficiency anemia History of suicide attempt GERD (gastroesophageal reflux disease) Dizziness Asthma Generalized anxiety disorder Abdominal pain Anemia Surgical History History of hernia repair History of ankle surgery History of back surgery History of cholecystectomy History of appendectomy History of section (~04/22/20) Family History Father Lung cancer Mother Diabetes Polythelia Paternal Aunt Lung cancer Breast cancer Social History Household Members: Spouse and Family Patient Tobacco Use Status: Never used Tobacco Substance Use Type: Marijuana service: No Current occupational status: employed Review of Systems Const Details: - Cardiovascular: Reports fatigue, low blood pressure improvement with weekly lactated Ringers. - Neurological: Reports trigeminal neuralgia with right-sided facial burning and lightning-bolt pain. - Hematologic: Reports low ferritin and hemoglobin. - Respiratory: Reports shortness of breath. - Gastrointestinal: Reports gastroparesis. Physical Exam Neuro Other: Mental Status: Alert and oriented to person, place, and time. Normal attention. Normal spontaneous speech, fluency, and comprehension. No obvious issues with mood and memory. Affect is appropriate. Cranial Nerves: CN II: Visual beasley full to confrontation, visual acuity intact. CN III, IV, : Pupils equal, round, reactive to light and accommodation. Extraocular movements are normal. CN V: Facial sensation is normal. CN VII: Facial movements symmetrical. CN VIII: Hearing intact to bedside conversation is normal. CN IX, X: Palate elevates symmetrically. CN XI: Shoulder shrug and head turn symmetrical. CN XII: Tongue midline without atrophy or fasciculations. Extrapyramidal: Full facial expressions and blinking. No rigidity. Movements are appropriate with no tremor or abnormality. Speech: Normal; no dysarthria or tremor. Assessment & Plan Assessment & Plan (1) Dysautonomia: Comment: Meds tried: Fludrocortisone (side effects), midodrine (side effects), Sodium chloride Tilt table testing at [facility] in 2020: Orthostatic intolerance (CBFv declined by 16% associated with hypocapnia - hypocapnic hyperventilation during the tilt), no orthostatic hypotension Ganglionic acetylcholine receptor Abs in 2024: WNL Code(s): G90.1 - Familial dysautonomia [Asad-Day] Category: Medical (2) Small fiber neuropathy: Comment: Skin biopsy at [facility] in 2020: small fiber neuropathy (reported) Labs at [facility] in Jul 2023: B12, C3, C4, Anti DsDNA, HIV, RF, Lyme, syphillis, IF, folate: WNL. TREVER 80 (nuclear, homogenous). Code(s): G62.9 - Polyneuropathy, unspecified Category: Medical (3) Migraine without aura and without status migrainosus, not intractable: Comment: MRI brain WWO at [facility] in Oct 2023: [facility] WNL MRI brain WWO at [facility] in 2020: Normal (reported) Code(s): G43.009 - Migraine without aura, not intractable, without status migrainosus Category: Medical (4) Neuropathic pain: Comment: Meds tried: Duloxetine, nortriptyline, Prozac, Zoloft, Code(s): M79.2 - Neuralgia and neuritis, unspecified Category: Medical (5) Trigeminal neuralgia of right side of face: Code(s): G50.0 - Trigeminal neuralgia Category: Medical Plan Impression: 1. Dysautonomia resulting in hypotension and multiple related symptoms. She has not responded to sodium chloride, fludrocortisone, or midodrine treatment. 2. Small fiber neuropathy 3. Neuropathic pain related to small fiber neuropathy 4. Migraine without aura 5. Right trigeminal neuralgia Recommendations: 1. Droxidopa 100 mg 3 times a day. 2. Gabapentin 100 mg a day as needed for pain 3. Appropriate hydration and other physical measures to counter orthostatic hypotension or low blood pressure Medications: 4. Lactated Ringer 1000mL IV every week Orders: Referrals Infusion Center Notification G90.1 - Familial dysautonomia [Asad-Day] Medications: New lactated Ringers 1,000 mL intravenously every weeks; until hemodynamically stable Dysautonomia 90 days Refilled droxidopa give consistently with OR without food, upon rising, at midday, late PM/at least 3hrs before bedtime 100 mg PO TID 90 caps 0RF Coding Level of Care Code Est Pt Level 5 (84693) Diagnoses Dysautonomia G90.1 Small fiber neuropathy G62.9 Migraine without aura and without status migrainosus, not intractable G43.009 Neuropathic pain M79.2 Trigeminal neuralgia of right side of face G50.0
--- OUTSIDE RECORDS SUMMARY | 2025-05-16 09:40 | XMS_ITS | Clinical Summary ---
Author Organization [facility] Address [address] [place] [address] Phone Care Team Providers Care Chief Legal Officer Name Role Phone Savanna Trimble MD Primary [...] patient's age to complete this topic Insurance [facility] MEDICAID ADVANTAGE Care Teams Chief Legal Officer Relationship Specialty Start Date End Date Savanna Trimble MD [address] [place] [address] PCP - General 06/02/23
--- OUTSIDE RECORDS SUMMARY | 2025-05-16 09:40 | XMS_ITS | Clinical Summary ---
Author Organization [facility] Address [address] [facility] [address] [place] [address] Phone Care Team Providers Care Service Center Supervisor Name Role Phone Taylor Avila MD Primary Care Provid er Savanna Trimble MD Unavailable Allergies Active Allergy Reactions Criticality Noted Date Comments Erythromycin 10/05/2019 Fludrocortisone 02/17/2018 Palpitations, dizziness Hydrocodone-Acetaminophen 08/19/2023 Iron 11/27/2014 Sucrose throat closing heart rate elevated bp dropped Metronidazole Hives Medium 06/30/2015 Midodrine 08/19/2023 Grxwzdl-Zlxevjuel-Kbcmqelsxh h n 11/07/2019 Nitrous Oxide 07/07/2016 Hysterical Lbzllzxkm-Fvqkvv-Wwhllcyn-Sc o p 08/19/2023 Tramadol 11/27/2014 Throat closing/rash [...] of autoimmune (atrophic) gastritis. Previously followed with [facility] Mike Calero and reportedly discharged [...] at [facility] [place] moving forward. 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 Encounters Date Type Department Care Team Description 05/09/2025 Telephone [facility] Rheumatology [address] [place] [address] Lexi Diamond [place] 03/12/2025 10:53 AM EDT - 03/12/2025 11:59 PM EDT Hospital Encounter [facility] [address] [place] [address] Mari Short MD, MPH Discharge Disposition: Home or Self Care 03/12/2025 Orders Only [facility] [address] [place] [address] Catracho Benitez Iron deficiency; Positive TREVER (antinuclear antibody) 03/04/2025 9:10 AM EDT Office Visit [facility] Rheumatology [address] [place] [address] Mari Short MD, MPH Positive TREVER (antinuclear antibody) (Primary Dx); Iron deficiency; Autoimmune gastritis; POTS (postural orthostatic tachycardia syndrome) 03/04/2025 Orders Only [facility] Rheumatology [address] [place] [address] ProviderCarly MD 03/04/2025 Telephone [facility] Rheumatology [address] [place] [address] [place] [address] Mari Short MD, MPH from Last 3 [...] 10:53 AM EDT) TREVER TITER 1:160 Homogeneous [facility] 03/12/2025 10:5 3 AM EDT 03/12/2025 10:58 AM EDT us Mari Short MD, MPH LAB BLOOD ORDERABLES Fin al Result [facility] [address] [place] [address] * Extractable nuclear antigen (CRISTOFER) antibodies (03/12/2025 10:53 AM EDT) SS-A/RO IGG 0.2 <1.0 (Negative) [facility]PATH [address] SS-B/LA IGG <0.2 <1.0 (Negative) U [facility] LAB MED/PATH [address] SM AB, IGG, S <0.2 <1.0 (Negative) U [facility] LAB MED/PATH [address] LOGISTICIAN AB, IGG <0.2 <1.0 (Negative) U [facility] LAB MED/PATH [address] SCL 70 AB, IGG <0.2 <1.0 (Negative) U [facility] LAB MED/PATH [address] DR VINNIE 1 IGG <0.2 <1.0 (Negative) U [facility] LAB MED/PATH [address] Blood 03/12/2025 10:5 3 AM EDT 03/12/2025 10:58 AM EDT Mari Short MD, MPH LAB BLOOD ORDERABLES Fin al Result [facility] LAB MED/PATH [address] [place] [address] * (ABNORMAL) Urinalysis with sediment (03/12/2025 10:53 AM EDT) WBC 0-4(A) NONE SEEN /hpf [facility] RBC NONE SEEN NONE SEEN /hpf [facility] URINE EPITHELIAL NONE SEEN NONE SEEN [facility] MUCUS Trace(A) NONE SEEN /hpf [facility] BACTERIA NONE SEEN NONE SEEN /hpf [facility] COLOR Yellow Yellow [facility] CLARITY Clear [facility] GLUCOSE Negative Negative [facility] BILI Negative Negative [facility] KETONES Negative Negative [facility] SPECIFIC GRAVITY 1.020 1.005 - 1.030 [facility] BLOOD Negative Negative [facility] PH 6.0 5.0 - 8.0 [facility] Protein-UA Negative Negative [facility] NITRITE Negative Negative [facility] Leukocyte esterase, ur Negative Negative [facility] Urine (Urine) 03/12/2025 10: 53 AM EDT 03/12/2025 4:43 PM EDT us Mari Short MD, MPH URINE ORDERABLES Final R esult Performing Organization Address City/State/[facility] Co de Phone Number [facility] [address] [place] [address] * Comprehensive metabolic panel (03/12/2025 10:53 AM EDT) SODIUM 137 133 - 146 mmol/L [facility] POTASSIUM 3.8 3.3 - 5.1 mmol/L [facility] CHLORIDE 103 96 - 108 mmol/L [facility] CO2 23 21 - 35 mmol/L [facility] BUN 12 6 - 19 mg/dL [facility] CREATININE 0.60 0.5 - 1.5 mg/dL [facility] GLUCOSE 85 70 - 99 mg/dL [facility] ALBUMIN 4.3 3.9 - 4.8 g/dL [facility] TOTAL PROTEIN 7.4 6.5 - 8.0 g/dL [facility] CALCIUM 9.3 8.4 - 10.3 mg/dL [facility] ALKALINE PHOSPHATASE 65 39 - 117 U/L [facility] TOTAL BILIRUBIN <0.2 0.0 - 1.2 mg/dL [facility] AST 21 0 - 37 U/L [facility] ALT 14 0 - 40 U/L [facility] GLOBULIN 3.1 1 - 4.8 g/dL [facility] EGFR >120 >59 mL/min/1.7 3m2 [facility] Comment:Estimated glomerular filtration rate calculated using the CKD-EPI refit equation. ANION GAP 15 10 - 20 mmol/L [facility] Blood 03/12/2025 10:5 3 AM EDT 03/12/2025 10:58 AM EDT Mari Short MD, MPH LAB BLOOD ORDERABLES Fin al Result Performing Organization Address [facility] Co de Phone Number [address] [address] * (ABNORMAL) Iron and iron binding capacity (03/12/2025 10:53 AM EDT) IRON 16(L) 30 - 160 ug/dL [facility] IRON BINDING CAPACITY 385 228 - 428 ug/dL [facility] TRANSFERRIN SATURAT. 4(L) 15 - 50 % [facility] Blood 03/12/2025 10:5 3 AM EDT 03/12/2025 10:58 AM EDT Mari Shotr MD, MPH LAB BLOOD ORDERABLES Fin al Result Performing Organization Address [facility] de Phone Number [address] [address] * Double stranded DNA antibodies (03/12/2025 10:53 AM EDT) ANTI DSDNA ANTIBODY Negative at 1:10 [facility] Comment: Performing Pathologist, Vero Santos M.D., Ph.D. [phone] Normal: Negative at 1:10 To interpret a negative test for anti-[place] or double stranded DNA antibodies in a [...] MPH LAB BLOOD ORDERABLES Fin al Result [facility] [address] [place] [address] * (ABNORMAL) CBC and differential (03/12/2025 10:53 AM EDT) WBC 7.26 4.00 - 11.00 K/uL [facility] RBC 4.68 4.00 - 5.20 M/uL [facility] HGB 10.6(L) 12.0 - 16.0 g/dL [facility] HCT 35.2(L) 36.0 - 46.0 % [facility] PLT 229 150 - 450 K/uL [facility] MCV 75.2(L) 80.0 - 100.0 fL [facility] MCH 22.6(L) 27.0 - 31.0 pg [facility] MCHC 30.1(L) 32.0 - 36.0 g/dL [facility] RDW 15.9(H) 11.5 - 14.5 % [facility] MPV 11.7 8.4 - 12.0 fL [facility] NRBC 0.00 0.00 /100 WBCs [facility] ABSOLUTE NRBC 0.00 0.00 K/uL [facility] DIFF METHOD Auto [facility] NEUTS 67.9 48.0 - 76.0 % [facility] LYMPHS 24.5 18.0 - 41.0 % [facility] MONOS 6.3 4.0 - 11.0 % [facility] EOS 0.8 0.0 - 5.0 % [facility] BASOS 0.4 0.0 - 1.5 % [facility] Granulocytes, immature (%) 0.1 0.0 - 0.9 % [facility] ABSOLUTE NEUTS 4.92 1.92 - 7.60 K/uL [facility] ABSOLUTE LYMPHS 1.78 0.72 - 4.10 K/uL [facility] ABSOLUTE MONOS 0.46 0.16 - 1.10 K/uL [facility] ABSOLUTE EOS 0.06 0.00 - 0.50 K/uL [facility] ABSOLUTE BASOS 0.03 0.00 - 0.15 K/uL [facility] Granulocytes, immature 0.01 0.00 - 0.09 K/uL [facility] Blood 03/12/2025 10:5 3 AM EDT 03/12/2025 10:58 AM EDT us Mari Short MD, MPH LAB BLOOD ORDERABLES Fin al Result Performing Organization Address [facility] Co de Phone Number [facility] [address] [place] [address] * Complement C3 (03/12/2025 10:53 AM EDT) C3 121 81 - 157 mg/dl [facility] Blood 03/12/2025 10:5 3 AM EDT 03/12/2025 10:58 AM EDT Mari Short MD, MPH LAB BLOOD ORDERABLES Fin al Result Performing Organization Address [facility] Co de Phone Number [address] [address] * Complement C4 (03/12/2025 10:53 AM EDT) C4 21 12 - 39 mg/dL [facility] Blood 03/12/2025 10:5 3 AM EDT 03/12/2025 10:58 AM EDT Mari Short MD, MPH LAB BLOOD ORDERABLES Fin al Result Performing Organization Address [facility] Co de Phone Number [address] [address] * (ABNORMAL) Antinuclear antibody (TREVER) (03/12/2025 10:53 AM EDT) TREVER SCREEN ON HEP 2 Positive(A ) Negative [facility] Comment:An TREVER Titer has bee n reflexed. The results will follow. Blood 03/12/2025 10:5 3 AM EDT 03/12/2025 10:58 AM EDT us Mari Short MD, MPH LAB BLOOD ORDERABLES Fin al Result [address] [address] * (ABNORMAL) Ferritin (03/12/2025 10:53 AM EDT) FERRITIN 8(L) 13 - 150 ug/L [facility] Blood 03/12/2025 10:5 3 AM EDT 03/12/2025 10:58 AM EDT Mari Short MD, MPH LAB BLOOD ORDERABLES Fin al Result Performing Organization Address [facility] Co de Phone Number [address] [address] * Vitamin B12 (03/12/2025 10:53 AM EDT) VITAMIN B12 546 232 - 1,245 pg/mL [facility] Blood 03/12/2025 10:5 3 AM EDT 03/12/2025 10:58 AM EDT Mari Short MD, MPH LAB BLOOD ORDERABLES Fin al Result Performing Organization Address [facility]/ZIP Co de Phone Number [address] [address] * CPK (creatine kinase) (03/12/2025 10:53 AM EDT) CREATINE KINASE 73 21 - 215 U/L [facility] Blood 03/12/2025 10:5 3 AM EDT 03/12/2025 10:58 AM EDT Result [facility] Mari Short MD, MPH LAB BLOOD ORDERABLES Fin al Result Performing Organization Address City/[facility]/ZIP Co de Phone Number [address] [address] from Last 3 Months Insurance * Guarantor: Blood, Delai Aleena Account Type Relation to Patient Date of Phone Billing Address Personal/Family Self [address] [place] [address] ACO Member Subscriber Plan / Payer (Ef fective 2023-Present) Name:Blood, Delia Aleena Relation to Subscriber:Self Name:Blood, Delia Aleena Payer ID:Not on file Type:Medicaid Address: [address] [address] * Guarantor: Blood, Delia Aleena Account Type Relation to Patient Date of Phone Billing Address Personal/Family Self [address] [place] [address] ACO Member Subscriber Plan / Payer (Ef fective 2023-Present) Name:Blood, Delia Aleena Relation to Subscriber:Self Name:Blood, Delia Aleena Payer ID:Not on file Type:Medicaid Address: [address] [address] * Guarantor: Blood, Delia Aleena Account Type Relation to Patient Date of Phone Billing Address Personal/Family Self [address] [place] [phone] [place] [address] ACO Member Subscriber Plan / Payer (Ef fective 2023-Present) Name:Blood, Delia Aleena Relation to Subscriber:Self Name:Blood, Delia Aleena Payer ID:Not on file Type:Medicaid Address: [address] [address] * Guarantor: Blood, Delia Aleena Account Type Relation to Patient Date of Phone Billing Address Personal/Family Self [address] [place] [address] PARTNERSHIP ACO Member Subscriber Plan / Payer ( fective 2023-Present) Name:Blood, Delia Aleena Relation to Subscriber:Self Name:Blood Delia Aleena Payer ID:Not on file Type:Medicaid Address: [address] [address] * Guarantor: Blood, Delia Aleena Account Type Relation to Patient Date of Phone Billing Address Personal/Family Self [address] [place] [phone] [place] [address] ACO Member Subscriber Plan / Payer ( fective 2023-Present) Name:Blood, Deliaritchie Coelloe Relation to Subscriber:Self Name:Blood, Delia Aleena Payer ID:Not on file Type:Medicaid Address: [address] [address] * Guarantor: Blood, Delia Aleena Account Type Relation to Patient Date of Phone Billing Address Personal/Family Self [address] [place] [phone] [place] [address] ACO Member Subscriber Plan / Payer ( fective 2023-Present) Name:Blood, Delia Aleena Relation to Subscriber:Self Name:Blood, Delia Aleena Payer ID:Not on file Type:Medicaid Address: [address] [address] * Guarantor: Blood, Delia Aleena Account Type Relation to Patient Date of Phone Billing Address Personal/Family Self [address] [place] [address] * Guarantor: Blood, Delia Aleena Account Type Relation to Patient Date of Phone Billing Address Personal/Family Self [address] [place] [address] Care Teams Service Center Supervisor Relationship Specialty Start Date End Date Taylor Avila MD [address] [facility] [address] [place] [address] PCP - General Internal Medicine 02/10/18 Savanna Trimble MD [address] [address] Internal Medicine 03/04/25 Additional Source Comments The information contained in this document represents components of the legal health record. It is not the complete legal health record.[facility]
--- OUTSIDE RECORDS SUMMARY | 2025-05-16 09:40 | XMS_ITS | Clinical Summary ---
Author Organization [facility] Address [address] [place] [address] Care Team Providers Care Multi Media Specialist Name Role Phone Savanna Trimble MD Primary Care Provider [phone] Allergies Active Allergy Reactions Criticality Noted Date [...] age to complete this topic Care Teams Multi Media Specialist Relationship Specialty Start Date End Date Savanna Trimble MD [address] [place] [address] PCP - General Internal Medicine 06/02/23
== END 2025-05-16 09:09 | disposition home or self-care (01) ==
LOC: HO.HSM 08:41
PROVIDERS: PCP Internal Medicine; Visit Provider Psychiatry & Neurology Neurology
DX: G90.1 Familial dysautonomia [Riley-Day] (principal); G62.9 Polyneuropathy, unspecified; G43.009 Migraine without aura, not intractable, without status migrainosus; G50.0 Trigeminal neuralgia
CPT/HCPCS: 99214

== ENCOUNTER → 2025-05-16 08:41 | Outpatient (BNVA) | payer OTHER, SELFPAY | PROVIDERS: PCP Internal Medicine; Visit Provider Psychiatry & Neurology Neurology | DX: G90.1 Familial dysautonomia [Riley-Day] (principal); G43.009 Migraine without aura, not intractable, without status migrainosus; G50.0 Trigeminal neuralgia; G62.9 Polyneuropathy, unspecified | CPT/HCPCS: 99212 ==

== ENCOUNTER 2025-06-04 07:30 | Outpatient (RCR) | payer OTHER, SELFPAY ==
[2025-04-19 13:45] VITALS: BP 106/68; PULSE 59; RESP 16; TEMP 37.1; O2SAT 100
[2025-04-19] MEDS: Lactated Ringers 1,000 ML 999 ML IV ×2 (13:52→14:51)
[2025-04-19 15:52] VITALS: BP 119/44; PULSE 51; RESP 16
[2025-04-24 13:20] VITALS: BP 101/59; PULSE 78; RESP 16; TEMP 37.2; O2SAT 98
[2025-04-24] MEDS: Lactated Ringers 1,000 ML 999 ML IV ×2 (13:29→14:30)
[2025-05-03 13:04] VITALS: BP 127/61; PULSE 80; RESP 16; TEMP 37.2; O2SAT 99
[2025-05-03] MEDS: Lactated Ringers 1,000 ML 999 ML IV (13:14)
[2025-05-03] MEDS: Lactated Ringers 1,000 ML 1000 ML IV (14:15)
[2025-05-10 12:58] VITALS: BP 107/59; PULSE 64; RESP 16; TEMP 37.2; O2SAT 99
[2025-05-10] MEDS: Lactated Ringers 1,000 ML 999 ML IV ×2 (13:08→14:11)
[2025-05-24 11:57] VITALS: BP 111/67; PULSE 85; RESP 16; TEMP 36.9; O2SAT 100
[2025-05-24] MEDS: Lactated Ringers 1,000 ML 999 ML IV ×2 (12:04→13:07)
[2025-06-04 07:38] VITALS: BP 103/53; PULSE 71; RESP 16; TEMP 36.6; O2SAT 98
[2025-06-04] MEDS: Lactated Ringers 1,000 ML 999 ML IV ×2 (07:49→08:50)
== END 2025-06-04 10:02 | disposition home or self-care (01) ==
LOC: HO.INF 07:30
PROVIDERS: Visit Provider Emergency Medicine
DX: I95.1 Orthostatic hypotension (principal)
CPT/HCPCS: 96360; 96361; J7120

== ENCOUNTER 2025-07-04 08:14 | Outpatient (AMB) | payer OTHER, SELFPAY ==
--- NOTE | 2025-07-04 08:17 | MHC.OFFVIS ---
Intake Visit Reasons: 6 weeks for dysautonimia Allergies erythromycin base Allergy (Unknown, Verified 04/11/25 10:08) unk fludrocortisone Allergy (Unknown, Verified 04/11/25 10:08) unk iron Allergy (Unknown, Verified 04/11/25 10:08) unk midodrine Allergy (Unknown, Verified 04/11/25 10:08) throat itchy tramadol Allergy (Unknown, Verified 04/11/25 10:08) swelling throatand hives adhesive tape Allergy (Verified 04/11/25 10:08) Rash metronidazole Adverse Reaction (Unknown, Verified 04/11/25 10:08) hives/rash/SOB HPI Comments Details: 29 years old woman, working in a pharmacy, with anxiety, bipolar disorder, dysautonomia, gastroparesis, and migraine headaches. 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 Her MRI of brain in 2020 in [place] was reported normal. Another MRI of brain in 2023 it [facility] did not reveal any significant finding. She is being treated for migraine and symptoms related to dysautonomia. Following an emergency room visit two months prior, Dr. Christianson prescribed IV hydration leading to weekly lactated Ringer's infusions, slightly improving her hypotension. She obtained insurance approval for Droxidopa but requires a prescription transfer to a specialty pharmacy. Additionally, pyridostigmine authorization is pending. For her trigeminal neuralgia and small fiber neuropathy, she takes gabapentin as needed, detailing significant right-sided facial pain unresponsive to NSAIDs or acetaminophen. Further complicating her condition, gastroparesis hinders adequate oral hydration. She also reports profound fatigue with low ferritin and hemoglobin levels contributing to dyspnea and chest pain. She awaits EEG results from [facility] to further evaluate her neurological status. FORMERLY [facility] Medical History (Updated 05/16/25 @ 09:04 by Sadie Benton MD) Gastroparesis POTS (postural orthostatic tachycardia syndrome) Seasonal affective disorder Depression Bipolar disorder Anxiety Dysautonomia Small fiber neuropathy Menstrual migraine Migraine without aura Orthostatic hypotension Migraine Menorrhagia Major depression in full remission Low back pain Irritable bowel syndrome Iron deficiency anemia History of suicide attempt GERD (gastroesophageal reflux disease) Dizziness Asthma Generalized anxiety disorder Abdominal pain Anemia Surgical History History of hernia repair History of ankle surgery History of back surgery History of cholecystectomy History of appendectomy History of section (~04/22/20) Family History Father Lung cancer Mother Diabetes Polythelia Paternal Aunt Lung cancer Breast cancer Social History Household Members: Spouse and Family Patient Tobacco Use Status: Never used Tobacco Substance Use Type: Marijuana service: No Current occupational status: employed Review of Systems Const Details: - Cardiovascular: Reports fatigue, low blood pressure improvement with weekly lactated Ringers. - Neurological: Reports trigeminal neuralgia with right-sided facial burning and lightning-bolt pain. - Hematologic: Reports low ferritin and hemoglobin. - Respiratory: Reports shortness of breath. - Gastrointestinal: Reports gastroparesis. Physical Exam Neuro Other: Mental Status: Alert and oriented to person, place, and time. Normal attention. Normal spontaneous speech, fluency, and comprehension. No obvious issues with mood and memory. Affect is appropriate. Cranial Nerves: CN II: Visual beasley full to confrontation, visual acuity intact. CN III, IV, : Pupils equal, round, reactive to light and accommodation. Extraocular movements are normal. CN V: Facial sensation is normal. CN VII: Facial movements symmetrical. CN VIII: Hearing intact to bedside conversation is normal. CN IX, X: Palate elevates symmetrically. CN XI: Shoulder shrug and head turn symmetrical. CN XII: Tongue midline without atrophy or fasciculations. Extrapyramidal: Full facial expressions and blinking. No rigidity. Movements are appropriate with no tremor or abnormality. Speech: Normal; no dysarthria or tremor. Assessment & Plan Assessment & Plan (1) Dysautonomia: Comment: Meds tried: Fludrocortisone (side effects), midodrine (side effects), Sodium chloride Tilt table testing at [facility] in 2020: Orthostatic intolerance (CBFv declined by 16% associated with hypocapnia - hypocapnic hyperventilation during the tilt), no orthostatic hypotension Ganglionic acetylcholine receptor Abs in 2024: WNL Code(s): G90.1 - Familial dysautonomia [Asad-Day] Category: Medical (2) Migraine without aura and without status migrainosus, not intractable: Comment: MRI brain [facility] at [facility] in Oct 2023: No sig findingRoutine EEG at off in Jul 2023: WNL MRI brain WWO at [facility] in 2020: Normal (reported) Code(s): G43.009 - Migraine without aura, not intractable, without status migrainosus Category: Medical (3) Small fiber neuropathy: Comment: Skin biopsy at [facility] in 2020: small fiber neuropathy (reported) Labs at [facility] in Jul 2023: B12, C3, C4, Anti DsDNA, HIV, RF, Lyme, syphillis, IF, folate: WNL. TREVER 80 (nuclear, homogenous). Code(s): G62.9 - Polyneuropathy, unspecified Category: Medical (4) Neuropathic pain: Comment: Meds tried: Duloxetine, nortriptyline, Prozac, Zoloft, Code(s): M79.2 - Neuralgia and neuritis, unspecified Category: Medical (5) Trigeminal neuralgia of right side of face: Code(s): G50.0 - Trigeminal neuralgia Category: Medical Plan Impression: 1. Dysautonomia resulting in hypotension and multiple related symptoms. She has not responded to sodium chloride, fludrocortisone, or midodrine treatment. 2. Small fiber neuropathy 3. Neuropathic pain related to small fiber neuropathy 4. Migraine without aura 5. Right trigeminal neuralgia Recommendations: 1. Droxidopa 100 mg 3 times a day, which she has started yesterday. 2. Gabapentin 100 mg a day as needed for pain 3. Appropriate hydration and other physical measures to counter orthostatic hypotension or low blood pressure Medications: 4. Lactated Ringer 1000mL IV every week, which she stated was helping to avoid dizziness and SOB We discussed the importance of adhering to Droxidopa therapy to manage her dysautonomia and associated symptoms while she is also getting IV infusion for a few weeks, specifically dizziness and hypotension. I emphasized monitoring her blood pressure regularly, with upper thresholds defined as needing adjustments. For inappropriate sinus tachycardia, we discussed the importance of vigilance and prompt reporting of escalation in symptoms. Regular follow-ups are planned to assess treatment efficacy and necessary interventions to address any developments in her conditions. Coding Level of Care Code Est Pt Level 5 (82140) Diagnoses Dysautonomia G90.1 Migraine without aura and without status migrainosus, not intractable G43.009 Small fiber neuropathy G62.9 Neuropathic pain M79.2 Trigeminal neuralgia of right side of face G50.0
== END 2025-07-04 08:29 | disposition home or self-care (01) ==
LOC: HO.HSM 08:15
PROVIDERS: PCP Internal Medicine; Visit Provider Psychiatry & Neurology Neurology
DX: G90.1 Familial dysautonomia [Riley-Day] (principal); G43.009 Migraine without aura, not intractable, without status migrainosus; G62.9 Polyneuropathy, unspecified; G50.0 Trigeminal neuralgia
CPT/HCPCS: 99214

== ENCOUNTER → 2025-07-04 08:14 | Outpatient (BNVA) | payer OTHER, SELFPAY | PROVIDERS: PCP Internal Medicine; Visit Provider Psychiatry & Neurology Neurology | DX: G90.1 Familial dysautonomia [Riley-Day] (principal); G43.009 Migraine without aura, not intractable, without status migrainosus; G62.9 Polyneuropathy, unspecified; G50.0 Trigeminal neuralgia | CPT/HCPCS: 99212 ==

== ENCOUNTER 2025-08-13 12:37 | Outpatient (REF) | payer OTHER, SELFPAY ==
[2025-08-13 14:46] LABS: Ferritin 5 ng/mL (10-122)
--- OUTSIDE RECORDS SUMMARY | 2025-08-14 03:31 | XMS_ITS | Clinical Summary ---
Author Organization [facility] Address [address] [place] [address] Care Team Providers Care Concrete Panel Installer Name Role Phone Savanna Trimble MD Primary Care Provider [phone] Allergies Active Allergy Reactions Criticality Noted Date [...] age to complete this topic Care Teams Concrete Panel Installer Relationship Specialty Start Date End Date Savanna Trimble MD [address] [place] [address] PCP - General Internal Medicine 06/02/23
--- OUTSIDE RECORDS SUMMARY | 2025-08-14 03:31 | XMS_ITS | Clinical Summary ---
Author Organization [facility] Address [address] [employer] [facility] [address] [place] [address] Phone Care Team Providers Care Rotary Engraver Name Role Phone Taylor Avila MD Primary Care Provid er Savanna Trimble MD Unavailable Allergies Active Allergy Reactions Criticality Noted Date Comments Erythromycin 10/05/2019 Fludrocortisone 02/17/2018 Palpitations, dizziness Hydrocodone-Acetaminophen 08/19/2023 Iron 11/27/2014 Sucrose throat closing heart rate elevated bp dropped Metronidazole Hives Medium 06/30/2015 Midodrine 08/19/2023 Fjtnnhs-Vmepzjtdh-Fyyyxlafkf h n 11/07/2019 Nitrous Oxide 07/07/2016 Hysterical Rrgkuzynz-Bwmseh-Jlanpfhk-Sc o p 08/19/2023 Tramadol 11/27/2014 Throat closing/rash [...] of autoimmune (atrophic) gastritis. Previously followed with [facility] PA Mike Calero and reportedly [...] at [facility] [place] moving forward. 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 Family History Medical History Relation Comments Coronary [...] 03/04/2025 9:07 AM EDT Plan of Treatment Upcoming Encounters Date Type Department Care Team ([facility] st Contact Info) Description 09/18/2025 8:00 AM EST Office Visit [facility] [address] [place] [address] Unknown, Unknown, MD Armstrong, Cheng Morales MD [address] [facility] [address] [place] [address] [email or web address] Health Maintenance Due Date Last Done Comments HEPATITIS C SCREENING 2012 HIV ONE-TIME SCREENING (18-6 5 YEARS) 2012 PNEUMOCOCCAL VACCINES (0-49 years) (1 of 2 - PCV) 2013 DEPRESSION SCREENING 08/07/2021 08/07/2020 PAP SMEAR 04/17/2022 04/17/2019 INFLUENZA VACCINE (#1) 2025 COVID-19 VACCINE ( - 2024-2 6 season) 2025 Adult Td,Tdap Booster 07/04/2032 07/04/2022 SMOKING STATUS [...] this topic Medical Devices Not on file Insurance [facility] [employer] * Guarantor: Blood, Delia Aleena Account Type Relation to Patient Date of Phone Billing Address Personal/Family Self [address] [place] [phone] [place] [address] ACO Member Subscriber Plan / Payer (Ef fective 2023-Present) Name:Blood, Edlia Aleena Relation to Subscriber:Self Name:Blood, Delia Aleean Payer ID:Not on file Type:Medicaid Address: [address] [id number] * Guarantor: Blood, Delia Aleena Account Type Relation to Patient Date of Phone Billing Address Personal/Family Self [address] [place] [phone] [place] [address] ACO Member Subscriber Plan / Payer (Ef fective 2023-Present) Name:Blood, Delia Aleena Relation to Subscriber:Self Name:Blood, Edlia Aleena Payer ID:Not on file Type:Medicaid Address: [address] [id number] * Guarantor: Blood, Delia Aleena Account Type Relation to Patient Date of Phone Billing Address Personal/Family Self [address] [place] [address] [facility] Member Subscriber Plan / Payer (Ef fective 2023-Present) Name:Blood, Delia Aleena Relation to Subscriber:Self Name:Blood, Delia Aleena Payer ID:Not on file Type:Medicaid Address: [address] [id number] * Guarantor: Blood, Delia Aleena Account Type Relation to Patient Date of Phone Billing Address Personal/Family Self [address] [place] [phone] [facility] [employer] * Guarantor: Blood, Delia Aleena Account Type Relation to Patient Date of Phone Billing Address Personal/Family Self [phone] [place] [address] ACO Member Subscriber Plan / Payer ( fective 2023-Present) Name:Blood Delia Aleena Relation to Subscriber:Self Name:BloodDelia Payer ID:Not on file Type:Medicaid Address: [address] [id number] * Guarantor: Blood, Delia Aleena Account Type Relation to Patient Date of Phone Billing Address Personal/Family Self [address] [place] [address] * Guarantor: Blood, Delia Aleena Account Type Relation to Patient Date of Phone Billing Address Personal/Family Self [address] [place] [address] * Guarantor: Blood, Delia Aleena Account Type Relation to Patient Date of Phone Billing Address Personal/Family Self [address] [place] [address] Care Teams Rotary Engraver Relationship Specialty Start Date End Date Taylor Avila MD [address] [address] PCP - General Internal Medicine 02/10/18 Savanna Trimble MD [address] [address] Internal Medicine 03/04/25 Additional Source Comments The information contained in this document represents components of the legal health record. It is not the complete legal health record.[facility]
--- OUTSIDE RECORDS SUMMARY | 2025-08-14 03:31 | XMS_ITS | Clinical Summary ---
Author Organization [facility] Address [address] [place] [address] Phone Care Team Providers Care Leather Coater Name Role Phone Savanna Trimble MD Primary [...] Cervical Cancer Screening: P ap Smear 12/24/2015 HPV Vaccines (1 - 3-dose SCD M series) 2021 HIV Screening 11/13/2022 Hepatitis C Screening 11/13/2022 Social Influencers of Health Screening 11/13/2022 Depression Screening 09/26/2024 COVID-19 Vaccine ( - 2024-2 6 season) 2025 Influenza Vaccine (#1) 2025 08/02/2009 DTaP,Tdap,and Td Vaccines (2 - Td or Tdap) 07/04/2032 07/04/2022 RSV Immunization Adult Patie nts (1 - 1-dose 75+ series) 2069 HIB Vaccines Aged Out No longer eligi [...] to complete this topic Insurance [facility] MEDICAID ADVANTAGE [address] [place] [address] Care Teams Leather Coater Relationship Specialty Start Date End Date Savanna Trimble MD [address] [place] [phone] PCP - General 06/02/23
--- OUTSIDE RECORDS SUMMARY | 2025-08-14 03:31 | XMS_ITS | Encounter Summary ---
Author Organization [facility] Address [address] [place] [address] Phone Care Team Providers Care Custodial Operations Manager Name Role Phone Taylor Avila MD Primary Care Provid er Savanna Trimble MD Unavailable Encounter Details Date Type Department Care Team (Late Contact Info) Description 11/01/2020 Procedure [facility] [address] [place] [address] Social History Tobacco Use Types Packs/Day Years Used Date Smoking Tobacco: Never Smokeless Tobacco: Never Alcohol Use Standard Drinks/Week Comments Not Asked 0 (1 standard drink = 0.6 oz pur e alcohol) Comments Yes Sex and Gender Information Value Date Recorded Sex Assigned at Female 09/06/2019 8:01 AM EST Legal Sex Female 3:15 PM EDT Gender Identity Female 09/06/2019 8:01 AM EST Sexual Orientation Straight 09/06/2019 8: 01 AM EST documented as of this encounter Plan of Treatment Upcoming Encounters Date Type Department Care Team (Late Contact Info) Description 09/18/2025 8:00 AM EST Office Visit [facility] [address] [place] [address] Unknown, Fausto, Cheng Mas MD [address] [place] [phone] [email or web address] documented as of this encounter Visit Diagnoses Not on filedocumented in this encounter Additional Health Concerns Assessment Noted Time PHQ-2 Depression Total Score: 0 08/07/20 20 4:17 PM EST documented as of this encounter Care Teams Custodial Operations Manager Relationship Specialty Start Date End Date Taylor Avila MD [address] [facility] [address] [place] [address] PCP - General Internal Medicine 02/10/18 Savanna Trimble MD 57 [facility] [address] [place] [address] Internal Medicine 03/04/25 documented as of this encounter Additional Source Comments The information contained in this document represents components of the legal health record. It is not the complete legal health record.[facility]
== END 2025-08-13 12:38 | disposition home or self-care (01) ==
LOC: HO.LAB 12:37
PROVIDERS: PCP Internal Medicine; Visit Provider Internal Medicine
DX: E61.1 Iron deficiency (principal)
CPT/HCPCS: 36415; 82728

== ENCOUNTER 2025-08-22 17:48 | Emergency (ER) | payer OTHER, SELFPAY ==
[2025-08-22 17:50] VITALS: BP 83/59; PULSE 87; RESP 18; TEMP 37.1; O2SAT 96; BMI 23.9
--- NOTE | 2025-08-22 17:52 | ED.GENADULT ---
HPI - General Adult General Chief complaint: Syncope Stated complaint: Shortness Of Breath Time Seen by Provider: 08/22/25 18:03 History of Present Illness ED Provider: Shawn DURHAM narrative: The patient is a 29-year-old woman who says that she has a history of POTS. She says that she was at home today preparing a Thanksgiving dinner when she started to feel dizzy and nauseated. She sat down for awhile and may have passed out while sitting down. At 1 point she became quite nauseated and wanted to vomit. She turned her body to find something to vomit into and she felt like she had a ?popping sensation in her right lower side near where she has a scar. The pain radiated to her back. She took ondansetron to try to control her nausea but this did not work and ultimately had her family drive her to the hospital. She was feeling fine earlier in the day. Related Data Home Medications ?Medication ?Instructions ?Recorded ?Confirmed pantoprazole 40 mg tablet,delayed 40 mg PO DAILY 02/27/24 04/17/25 release mfwiiiweun-msmazewqdafcm-avbpdpny 1 - 2 tab PO DAILY PRN 04/15/25 04/17/25 50 mg-325 mg-40 mg tablet pyridostigmine bromide 30 mg tablet 30 mg PO BID 04/15/25 sodium chloride 1,000 mg soluble 1,000 mg PO DAILY 04/15/25 04/17/25 tablet Previous Rx's ?Medication ?Instructions ?Recorded ondansetron 4 mg disintegrating 4 mg PO Q6H PRN nausea and 03/18/25 tablet vomiting #10 tabs gabapentin 100 mg tablet 100 mg PO DAILY #90 tabs 04/17/25 lactated Ringers 1,000 ml IV .COMPLEX Dysautonomia 05/16/25 90 days droxidopa 100 mg capsule 100 mg PO TID #90 caps 06/17/25 Allergies Allergy/AdvReac Type Severity Reaction Status Date / Time erythromycin base Allergy Unknown unk Verified 08/22/25 17:54 fludrocortisone Allergy Unknown unk Verified 08/22/25 17:54 iron Allergy Unknown unk Verified 08/22/25 17:54 midodrine Allergy Unknown throat Verified 08/22/25 17:54 itchy tramadol Allergy Unknown swelling Verified 08/22/25 17:54 throatand hives adhesive tape Allergy Rash Verified 08/22/25 17:54 metronidazole AdvReac Unknown hives/rash/ Verified 08/22/25 17:54 SOB Review of Systems Review of Systems: Yes all other systems are reviewed and are negative [facility] Past Medical History Medical History (Updated 08/22/25 @ 20:04 by Mark Escobar MD) Gastroparesis POTS (postural orthostatic tachycardia syndrome) Seasonal affective disorder Depression Bipolar disorder Anxiety Dysautonomia Small fiber neuropathy Menstrual migraine Migraine without aura Orthostatic hypotension Migraine Menorrhagia Major depression in full remission Low back pain Irritable bowel syndrome Iron deficiency anemia History of suicide attempt GERD (gastroesophageal reflux disease) Dizziness Asthma Generalized anxiety disorder Abdominal pain Anemia Surgical History History of hernia repair History of ankle surgery History of back surgery History of cholecystectomy History of appendectomy History of section (~04/22/20) Family History Family History Father Lung cancer Mother Diabetes Polythelia Paternal Aunt Lung cancer Breast cancer Social History Social History Household Members: Spouse and Family Patient Tobacco Use Status: Never used Tobacco Smoked in Last 30 Days: No Use of substances other than those prescribed or required for medical reasons: Yes Substance Use Type: Marijuana Advance Directives: No Advance Directives Information Provided: No Patient : No service: No Current occupational status: employed Physical Exam ED Vital Signs: Vital Signs - 24 hr 08/22/25 17:50 08/22/25 18:10 08/22/25 18:10 Temperature 98.7 F 98.7 F Pulse Rate 87 87 Respiratory Rate 18 18 Blood Pressure 83/59 L 83/59 L Pulse Oximetry 96 96 96 Oxygen Delivery Method Room Air Room Air Room Air 08/22/25 18:24 08/22/25 19:09 08/22/25 20:24 Temperature 98.5 F 98.2 F Pulse Rate 70 72 70 Respiratory Rate 14 14 17 Blood Pressure 95/43 L 87/35 L 96/73 Pulse Oximetry 96 97 Oxygen Delivery Method Room Air Room Air BMI result Body Mass Index 23.9 Const Other: The patient is a slim 29-year-old woman who was awake and alert. She is pleasant and cooperative. She looks mildly unwell but not severely ill in any way. Orientation/consciousness: patient oriented x3 HENMT Other: The face is symmetrical. ?Mucous membranes moist. Eyes Other: Pupils are round equal, conjunctivae are clear, extraocular movements intact Neck Neck: Yes normal visual inspection and Yes full ROM Resp Effort & Inspection: normal respiratory effort Auscultation: clear to auscultation bilaterally Cardio Rate: regular rate Rhythm: regular rhythm Heart sounds: S1 normal heart sound present and S2 normal heart sound present GI Other: The abdomen is soft and nontender Skin Other: The skin is dry and unremarkable Neuro General: patient oriented x3, tone normal, moves all extremities, no focal motor deficits and CN's II-XI intact bilaterally Extrem Other: There is no calf swelling or tenderness. No asymmetry. No peripheral edema. Course Course Course Narrative: This is a rapid medical exam performed by Jonathan Oh NP: Additional HPI, ROS, PE not included below will be deferred to primary provider. Patient is a 29y/o F with pmhx of POTS presenting with episode of syncope, nausea, vomiting. Was sitting and fell into a rack during syncope, did not fall to the floor. BP in triage is 83/59. [place] a pop at that time, in area of scar in RLQ ( was 2 yeras ago). Plan: EKG, labs, viral serology, UA Medications Administered Discontinued Medications Generic Name Dose Route Start Last Admin Trade Name Freq PRN Reason Stop Dose Admin Droperidol 0.625 mg 08/22/25 18:14 08/22/25 18:22 Droperidol 5 Mg/2 Ml Vial IVPUSH 08/22/25 18:15 0.625 mg ONCE ONE Administration Sodium Chloride 1,000 mls @ 999 mls/hr 08/22/25 18:15 08/22/25 20:14 Ns IV 08/22/25 19:15 Infused .Q1H1M SWETA Infusion Ketorolac Tromethamine 15 mg 08/22/25 18:14 08/22/25 18:22 Ketorolac Tromethamine 15 Mg/Ml Vial IVPUSH 08/22/25 18:15 15 mg ONCE ONE Administration Medical Decision Making Lab Data 08/22/25 18:05 08/22/25 18:05 Labs: Lab Results 08/22/25 08/22/25 Range/Units 18:05 19:30 WBC 10.0 (4.8-10.8) X10*3/uL RBC 4.40 (4.20-5.50) X10*6/uL Hgb 9.8 L (12.0-16.0) g/dl Hct 31.4 L (37.0-47.0) % MCV 71.4 L (80.0-98.0) fL MCH 22.3 L (27.0-33.0) pg MCHC 31.2 (31.0-35.0) g/dl RDW 16.1 H (11.0-16.0) % Plt Count 243 (160-400) X10*3/uL MPV 10.9 (9.4-12.3) fL Immature Gran % (Auto) 0.2 (0.0-0.4) % Neut % (Auto) 73.4 H (45-73) % Lymph % (Auto) 18.5 L (20-40) % Whitman % (Auto) 7.3 (2-11) % Eos % (Auto) 0.4 (0-4) % Baso % (Auto) 0.2 (0-2) % Lymph # (Auto) 1.8 (1.2-4.9) X10*3/uL Whitman # (Auto) 0.7 (0.1-1.2) X10*3/uL Eos # (Auto) 0.0 (0.0-0.4) X10*3/uL Baso # (Auto) 0.0 (0.0-0.2) X10*3/uL Abs Immat Gran (auto) 0.02 (0.00-0.03) X10*3/uL Absolute Neuts (auto) 7.3 (2.0-8.3) x10*3/uL Absolute Nucleated RBC 0.000 (0.0-0.012) X10*3/uL Nucleated RBC % (auto) 0.0 (0.0-0.2) /100WBC Sodium 140 (135-145) mmol/L Potassium 3.9 (3.3-5.1) mmol/L Chloride 109 H (96-108) mmol/L Carbon Dioxide 23 (22-29) mmol/L Anion Gap 12 (12-20) BUN 11 (9-16) mg/dL Creatinine 0.64 (0.5-1.4) mg/dL Estim Creat Clear Calc 106.3 Estimated GFR > 60 Random Glucose 105 (60-115) mg/dL Calcium 9.1 (8.4-10.2) mg/dL Total Bilirubin 0.3 (0.0-1.0) mg/dL AST 21 (5-31) U/L ALT 12 (0-31) U/L Alkaline Phosphatase 59 (39-117) U/L Total Protein 7.3 (6.5-8.0) g/dL Albumin 4.5 (3.5-5.0) g/dL Lipase 26 (8-78) U/L Beta HCG, Quant < 2 mIU/mL Urine Color Yellow Urine Appearance Clear Urine pH 6.0 (5.0-9.0) Ur Specific [place] 1.010 (1.005-1.025) Urine Protein Negative (Neg-Trace) mg/dL Urine Glucose (UA) Negative (Negative) mg/dL Urine Ketones Trace (Negative) mg/dL Urine Blood Negative (Negative) Urine Nitrite Negative (Negative) Ur Leukocyte Esterase Negative (Negative) Influenza Type A (PCR) NEGATIVE (Negative) Influenza Type B (PCR) NEGATIVE (Negative) RSV RNA Qual (PCR) NEGATIVE (Negative) SARS-CoV-2 RNA (RT-PCR) NEGATIVE (Negative) Independent Interpretation I performed an independent interpretation of an: EKG Interpretation: EKG at 18:15 shows sinus bradycardia with a sinus arrhythmia at 58 bpm, normal intervals, unremarkable EKG, no change from previous Discharge Plan Discharge Clinical Impression: Syncope, Vomiting Patient Disposition: Home, Self-Care Additional Instructions: Your testing in the emergency department seems very reassuring today. Please rest and take it easy tonight. Take clear fluids tonight. If you are feeling well enough to eat more complex food tomorrow you may. Please contact your regular doctor for follow up soon. Return to the emergency room if significantly worse. Prescriptions: No Action droxidopa 100 mg capsule 100 mg PO TID Qty: 90 0RF Rx Instructions: give consistently with OR without food, upon rising, at midday, late PM/at least 3hrs before bedtime pantoprazole 40 mg tablet,delayed release (DR/EC) 40 mg PO DAILY ondansetron 4 mg tablet,disintegrating 4 mg PO Q6H PRN (Reason: nausea and vomiting) Qty: 10 0RF lactated Ringers Parenteral Solution 1,000 ml IV .COMPLEX 90 Days Rx Instructions: 1,000 mL intravenously every weeks; until hemodynamically stable jwwrvudxav-hddkyzoquozzq-ggun 50-325-40 mg tablet 1 - 2 tab PO DAILY PRN sodium chloride 1,000 mg tablet,soluble 1,000 mg PO DAILY pyridostigmine bromide 30 mg tablet 30 mg PO BID gabapentin 100 mg tablet 100 mg PO DAILY Qty: 90 0RF Referrals: Savanna Trimble MD [Primary Care Provider, Medical] Interventions: ED Discharge Assessment Last Done: 08/22/25 20:24 Discharge Date/Time: 08/22/25 20:26 Print Language: Italian
--- NOTE | 2025-08-22 17:54 | ECG_ITS ---
Test Reason : SOB Blood Pressure : */* mmHG Vent. Rate : 58 BPM Atrial Rate : 58 BPM P-R Int : 140 ms QRS Dur : 78 ms QT Int : 404 ms P-R-T Axes : 65 69 58 degrees QTcB Int : 396 ms Sinus bradycardia with sinus arrhythmia Otherwise normal ECG When compared with ECG of 11-Apr-2025 10:16, No significant change was found Referred By: Radha Oh Electronically Signed By: Darnell Orellana
[2025-08-22 18:10] VITALS: BP 83/59; PULSE 87; RESP 18; TEMP 37.1; O2SAT 96
--- OUTSIDE RECORDS SUMMARY | 2025-08-22 18:10 | XMS_ITS | Clinical Summary ---
Author Organization [facility] Address [address] [place] [address] Care Team Providers Care Beam Press Operator Name Role Phone Savanna Trimble MD Primary Care Provider [phone] Allergies Active Allergy Reactions Criticality Noted Date [...] age to complete this topic Care Teams Beam Press Operator Relationship Specialty Start Date End Date Savanna Trimble MD [address] [place] [address] PCP - General Internal Medicine 06/02/23
--- OUTSIDE RECORDS SUMMARY | 2025-08-22 18:10 | XMS_ITS | Clinical Summary ---
Author Organization [facility] Address [address] [facility] [address] [place] [address] Phone Care Team Providers Care Peanut Blancher Name Role Phone Taylor Avila MD Primary Care Provid er Savanna Trimble MD Unavailable Allergies Active Allergy Reactions Criticality Noted Date Comments Erythromycin 10/05/2019 Fludrocortisone 02/17/2018 Palpitations, dizziness Hydrocodone-Acetaminophen 08/19/2023 Iron 11/27/2014 Sucrose throat closing heart rate elevated bp dropped Metronidazole Hives Medium 06/30/2015 Midodrine 08/19/2023 Teqvqgo-Saqmkgewc-Trmlqvaust h n 11/07/2019 Nitrous Oxide 07/07/2016 Hysterical Bggsyywli-Wujogc-Lerpditi-Sc o p 08/19/2023 Tramadol 11/27/2014 Throat closing/rash [...] of autoimmune (atrophic) gastritis. Previously followed with [facility] PA Mike Calero and reportedly [...] at [facility] [place] moving forward. Gastroparesis 10/05/2019 Asthma 10/05/2019 GERD [...] Upcoming Encounters Date Type Department Care Team ([facility] st Contact Info) Description 09/18/2025 8:00 AM EST Office Visit [facility] [address] [place] [address] Unknown, Unknown, MD Armstrong, Cheng Morales MD [address] [facility] [address] [place] [address] [email or web address] Health Maintenance Due Date Last Done Comments [...] topic Medical Devices Not on file Insurance [facility] [employer] * Guarantor: Blood, Delia Aleena Account Type Relation to Patient Date of Phone Billing Address Personal/Family Self [address] [place] [id number] [place] [address] ACO Member Subscriber Plan / Payer (Ef fective 2023-Present) Name:Blood, Delia Aleena Relation to Subscriber:Self Name:Blood, Delia Aleena Payer ID:Not on file Type:Medicaid Address: [address] [id number] * Guarantor: Blood, Delia Aleena Account Type Relation to Patient Date of Phone Billing Address Personal/Family Self [address] [place] [id number] [place] [address] ACO Member Subscriber Plan / Payer (Ef fective 2023-Present) Name:Blood, Delia Aleena Relation to Subscriber:Self Name:Blood, Delia Aleena Payer ID:Not on file Type:Medicaid Address: [address] [id number] * Guarantor: Blood, Delia Aleena Account Type Relation to Patient Date of Phone Billing Address Personal/Family Self [address] [place] [address] [facility] Member Subscriber Plan / Payer (Ef fective 2023-Present) Name:Blood, Delia Aleena Relation to Subscriber:Self Name:Blood, Delia Aleena Payer ID:Not on file Type:Medicaid Address: [address] [id number] * Guarantor: Blood, Delia Aleena Account Type Relation to Patient Date of Phone Billing Address Personal/Family Self [address] [place] [id number] [facility] [employer] * Guarantor: Blood, Delia Aleena Account Type Relation to Patient Date of Phone Billing Address Personal/Family Self [id number] [place] [address] ACO Member Subscriber Plan / Payer ( fective 2023-Present) Name:Blood Delia Aleena Relation to Subscriber:Self Name:BloodDelia Payer ID:Not on file Type:Medicaid Address: [address] [id number] * Guarantor: Blood, Delia Aleena Account Type Relation to Patient Date of Phone Billing Address Personal/Family Self [address] [place] [address] * Guarantor: Blood, Delia Aleena Account Type Relation to Patient Date of Phone Billing Address Personal/Family Self [address] [place] [address] * Guarantor: Blood, Delia Aleena Account Type Relation to Patient Date of Phone Billing Address Personal/Family Self [address] [place] [address] Care Teams Peanut Blancher Relationship Specialty Start Date End Date Taylor Avila MD [address] [address] PCP - General Internal Medicine 02/10/18 Savanna Trimble MD [address] [address] Internal Medicine 03/04/25 Additional Source Comments The information contained in this document represents components of the legal health record. It is not the complete legal health record.[facility]
--- OUTSIDE RECORDS SUMMARY | 2025-08-22 18:10 | XMS_ITS | Encounter Summary ---
Author Organization [facility] Address [address] [place] [address] Phone Care Team Providers Care Congressional Aide Name Role Phone Taylor Avila MD Primary Care Provid er Savanna Trimble MD Unavailable Encounter Details Date Type Department Care Team (Late Contact Info) Description 11/01/2020 Procedure Pass [facility] [address] [place] [address] Social History Tobacco Use Types Packs/Day Years [...] Description 09/18/2025 8:00 AM EST Office Visit [facility] [address] [place] [address] Unknown, Fausto, Cheng Mas MD [address] [place] [address] [email or web address] documented as of this encounter Visit Diagnoses Not on filedocumented in this encounter Additional Health Concerns Assessment Noted Time PHQ-2 Depression Total Score: 0 08/07/20 20 4:17 PM EST documented as of this encounter Care Teams Congressional Aide Relationship Specialty Start Date End Date Taylor Avila MD [address] [facility] [address] [place] [address] PCP - General Internal Medicine 02/10/18 Savanna Trimble MD 57 [facility] [address] [place] [address] Internal Medicine 03/04/25 documented as of this encounter Additional Source Comments The information contained in this document represents components of the legal health record. It is not the complete legal health record.[facility]
--- OUTSIDE RECORDS SUMMARY | 2025-08-22 18:10 | XMS_ITS | Clinical Summary ---
Author Organization [facility] Address [address] [place] [address] Phone Care Team Providers Care Student Financial Services Counselor Name Role Phone Savanna Trimble MD Primary [...] to complete this topic Insurance [facility] MEDICAID ADVANTAGE [address] [place] [address] Care Teams Student Financial Services Counselor Relationship Specialty Start Date End Date Savanna Trimble MD [address] [place] [id number] PCP - General 06/02/23
[2025-08-22 18:11] LABS: MANUAL DIFF FLAG NO
[2025-08-22 18:12] LABS: Hematocrit 31.4 % (37.0-47.0); Hemoglobin 9.8 g/dl (12.0-16.0); Imm Gran Abs Auto 0.02 X10*3/uL (0.00-0.03); Imm Gran Pct Auto 0.2 % (0.0-0.4); Lymphocytes Absolute Auto 1.8 X10*3/uL (1.2-4.9); Mean Corpuscular HGB Conc 31.2 g/dl (31.0-35.0); Mean Corpuscular Hemoglobin 22.3 pg (27.0-33.0); Mean Corpuscular Volume 71.4 fL (80.0-98.0); NRBC Abs Auto 0.000 X10*3/uL (0.0-0.012); NRBC Pct Auto 0.0 /100WBC (0.0-0.2); Platelet Count 243 X10*3/uL (160-400); Red Blood Count 4.40 X10*6/uL (4.20-5.50); White Blood Count 10.0 X10*3/uL (4.8-10.8)
[2025-08-22 18:24] VITALS: BP 95/43; PULSE 70; RESP 14
[2025-08-22 18:33] LABS: Alanine Aminotransferase 12 U/L (0-31); Albumin Level 4.5 g/dL (3.5-5.0); Alkaline Phosphatase 59 U/L (39-117); Anion Gap 12 (12-20); Aspartate Amino Transferase 21 U/L (5-31); Blood Urea Nitrogen 11 mg/dL (9-16); Calcium 9.1 mg/dL (8.4-10.2); Carbon Dioxide 23 mmol/L (22-29); Chloride 109 mmol/L (96-108); Creatinine Clr Calc Pharmacy 106.3; Estimated Glomerular Filt Rate > 60; Lipase 26 U/L (8-78); Potassium 3.9 mmol/L (3.3-5.1); Sodium 140 mmol/L (135-145); Total Protein 7.3 g/dL (6.5-8.0)
[2025-08-22 18:49] LABS: Resp Syncy Virus RNA Qual PCR NEGATIVE (Negative); SARS COV2 PCR INHOUSE NEGATIVE (Negative)
[2025-08-22 19:09] VITALS: BP 87/35; PULSE 72; RESP 14; TEMP 36.9; O2SAT 96
[2025-08-22 19:43] LABS: Appearance Urine Clear; Glucose Urine UA Negative (Negative); PH 6.0 (5.0-9.0); Specific Gravity - Urine 1.010 (1.005-1.025)
[2025-08-22 20:24] VITALS: BP 96/73; PULSE 70; RESP 17; TEMP 36.8; O2SAT 97
== END 2025-08-22 20:26 | disposition home or self-care (01) ==
PROVIDERS: Registered Nurse Emergency; Emergency Provider Emergency Medicine; PCP Internal Medicine
DX: R55 Syncope and collapse (principal); R11.10 Vomiting, unspecified; R06.02 Shortness of breath; R00.1 Bradycardia, unspecified; G90.A Postural orthostatic tachycardia syndrome [POTS]; Z03.818 Encounter for observation for suspected exposure to other biological agents ruled out
CPT/HCPCS: 80053; 81003; 83690; 84702; 85025; 87637; 93005; 96361; 96374; 96375; 99284; 99285; J1790; J1885

== ENCOUNTER → 2025-08-22 17:54 | Outpatient (BNV) | payer OTHER, SELFPAY | PROVIDERS: Emergency Provider Emergency Medicine; PCP Internal Medicine; Visit Provider Internal Medicine Cardiovascular Disease | DX: R00.1 Bradycardia, unspecified (principal) | CPT/HCPCS: 93010 ==